=== PATIENT | male | born 1935 | race Caucasian/White ===

== ENCOUNTER 2021-04-02 17:54 | Inpatient (IN) ==
--- NOTE | 2021-04-02 21:05 | History & Physical Report ---
Date of Service April 02, 2021 Assessment & Plan (1) Lower extremity weakness: Patient is coming in with lower extremity weakness and L2 lumbar compression fracture. will consult ortho will likely order MRI of lumbar spine. will hold pain medicine will consult PT/OT (2) HTN (hypertension): will monitor, may add home med (3) Compression fracture of L2: as noted above. Admission and Anticipated Discharge Date Admission Date: April 02, 2021 History of Present Illness Chief Complaint: lower extremity weakness Primary Care Provider: Santhosh Chiang DO 85 yo male is brought from the [place] [facility] as it apperars he had a fall within the past 2 weeks. Prior to today, he would take care of his , and was the active spouse out of the 2. However, today, he just could not get out of bed. And he was unable to lift his bilateral lower extremities. He was also complaining of back pain. He was brought to the er in [place] and due to laxck of beds, was transferred to [facility]. Called for input. PMH: Cataract; HTN, Prostate Carcinoma PSH: Inguinal hernia repair in 2019 PFH: noncontributory given his advanced age. Medications: Losartan 50 mg PO DAILY Allergies Allergy/AdvReac Type Severity Reaction Status Date / Time No Known Allergies Allergy Unverified 04/02/21 21:39 Past Med/Surg History Social History Smoking Status: Former smoker Second Hand Exposure: No; Hx Alcohol Use: No Hx Substance Use: No Preferred Language: Ghanaian Communication Ability: Effective Beliefs That Will Affect Care: None Current Living Situation: Spouse Other Information That Helps Us Care for You: No Feels Safe at Home: Yes Safety Concerns: Feels Safe At This Time Assistive Devices: Denture - Upper, Denture - Lower and Walker Review of Systems Review of Systems: Unobtainable due to cognitive status Physical Exam Constitutional: WD/WN, vitals as above Eyes: PERRL, conjunctivae normal, anicteric sclerae ENMT: external ear and nose normal, oropharynx normal Neck: trachea midline, no thyromegaly Respiratory: normal respiratory effort, lungs clear to auscultation Cardiovascular: RRR, no murmur, no edema Gastrointestinal (Abdomen): normal bowel sounds, soft, nontender, no hepatosplenomegaly Musculoskeletal: no cyanosis or clubbing, extremities motor strength 5/5 (except for 3/5 strength in bilateral lower legs) Neurologic: PERRL, EOMI, accommodation nl, no face palsy, no dysarthria Psychiatric: A+Ox3, euthymic affect Results & Data Results & Data ([facility]) Vital Signs (Past 12 Hours) Vital Signs Temp Pulse Resp BP Pulse Ox 04/02/21 20:18 36.9 C 68 20 154/75 H 92 PG Care Time/CCT Total # of Minutes Spent Total Time Spent with Patient: Total time spent is greater than 50% in coordination of care (as documented) at patient's floor/unit and/or counseling patient: Coding Level of Care Code 00054 Initial Inpt Care Lvl 3 Diagnoses Lower extremity weakness R29.898 HTN (hypertension) I10 Compression fracture of L2 S32.020A Time Spent (min) 55
[2021-04-02] MEDS ORDERED: PATIENT'S ALLERGY INFO NEEDS ENTERED SCH (21:45)
[2021-04-02 22:49] LABS: Hematocrit (blood only) 38.3 % (42-52); Hemoglobin 12.7 g/dL (14.0-18.0); Mean Corpuscular Hemoglobin 31.5 pg (25-34); Mean Corpuscular Hgb Conc 33.2 g/dL (32-36); Mean Platelet Volume 10.1 fL (7.4-10.4); Platelet Count 149 K/uL (130-400); RDW Coefficient of Variation 13.7 % (11.5-14.5); RDW Standard Deviation 47.9 fL (36.4-46.3); Red Blood Count 4.03 M/uL (4.7-6.1); White Blood Count 4.68 K/uL (4.8-10.8)
[2021-04-03] MEDS: HEPARIN SOD 5,000 UNIT/0.5 ML VIAL SQ SCH ×4 (01:47→23:27)
--- NOTE | 2021-04-03 08:18 | Orthopedic Consultation ---
Date of Consultation April 03, 2021 Assessment & Plan (1) Compression fracture of L2: At this time would like to obtain an MRI lumbar spine. After this complete review of findings make further conditions. History of Present Illness Reason for Consultation: Back pain Attending Physician: Omero Scruggs History of Present Illness This is a 85-year-old male that presents to the hospital status post fall at home. His complaints of back and bilateral leg weakness. Allergies Allergy/AdvReac Type Severity Reaction Status Date / Time No Known Allergies Allergy Unverified 04/02/21 21:39 Home Medications Medication Instructions Recorded Confirmed Type No Known Home Medications 04/03/21 History Patient History Social History Smoking Status: Former smoker Second Hand Exposure: No; Hx Alcohol Use: No Hx Substance Use: No Preferred Language: Cypriot Communication Ability: Effective Beliefs That Will Affect Care: None Current Living Situation: Spouse Other Information That Helps Us Care for You: No Feels Safe at Home: Yes Safety Concerns: Feels Safe At This Time Assistive Devices: Denture - Upper, Denture - Lower and Walker Physical Exam Physical Exam: On physical exam he is resting comfortably. He demonstrates the ability for plantarflexion dorsiflexion quadricep contraction bilateral extremities. Did not get him out of bed. He does have pain when sitting up and rolling over in bed. Sensory appears to be intact. Results & Data ([facility]) Vital Signs (Past 12 Hours) Vital Signs Temp Pulse Resp BP BP Pulse Ox 04/03/21 05:44 179/79 H 04/03/21 05:41 36.5 C 73 16 95 04/02/21 20:18 36.9 C 68 20 154/75 H 92
--- NOTE | 2021-04-03 10:53 | Magnetic Resonance Report ---
LUMBAR SPINE MRI HISTORY: back and leg pain TECHNIQUE: Multiplanar multisequence MRI of the lumbar spine was performed without the use of contras t. COMPARISON: None. FINDINGS: For the purpose of the report the L5-S1 disc space will be located on axial image 30 of 33. There is marrow edema and a fluid cleft within the superior endplate of L2 which demonstrates up to 1 0% loss of height centrally. This is consistent with a subacute superior endplate compression fractur e. No associated retropulsion. No additional fractures identified within the lumbar spine. Mild parav ertebral edema at the L2 level is likely reactive to the fracture. The conus terminates at the L1-L2 disc space level. There is a 1.8 cm T2 hyperintense, T1 hypointense focus within the posterior aspect of the L1 vertebral body. This is indeterminate but could be related to the normal vascular structur es. An atypical hemangioma could also have a similar appearance. Eone-ib-febprdju facet degenerative changes within the lumbar spine most pronounced at the L5-S1 level. Mild edema within the lower teetee daniela musculature. This may represent a mild muscular strain. There is moderate disc space narrowing at L2-L3. The remaining disc spaces are preserved. L1-L2: No significant central canal narrowing. There is mild left-sided neural foraminal narrowing. L2-L3: No significant central canal or neural foraminal narrowing. L3-L4: Small broad-based posterior disc bulge without significant central canal or neural foraminal n arrowing. L4-L5: Small broad-based posterior disc bulge with ligamentum and facet hypertrophy resulting in mini mal central canal narrowing. There is mild right neural foraminal narrowing. L5-S1: No significant central canal or neural foraminal narrowing. IMPRESSION: 1. A mild subacute superior endplate compression fracture at L2. No associated retropulsion. 2. Mild edema within the lower paraspinal muscles consistent with a mild strain. 3. Degenerative changes as described above. ACT 112: Negative or not required by law. Electronically signed by: Benny Green M.D. 04/03/2021 10:51 AM
[2021-04-03] MEDS: LOSARTAN POTASSIUM 50 MG TAB PO SCH (15:42)
--- NOTE | 2021-04-03 21:51 | Hospitalist Progress Note ---
Date of Service April 03, 2021 Assessment & Plan (1) Lower extremity weakness: Plan: Patient is coming in with lower extremity weakness and L2 lumbar compression fracture. await further input from ortho Obtained MRI of L spine will order lidocaine patch will consult PT/OT (2) HTN (hypertension): will resume losartan. will monitor. BP is elevated. (3) Compression fracture of L2: as noted above. (2) HTN (hypertension): (3) Compression fracture of L2: Admission and Anticipated Discharge Date Admission Date: April 02, 2021 Subjective Patient reports back pain when he tries to ambulate. Review of Systems Review of Systems: All systems reviewed & are unremarkable except as noted in HPI & below Physical Exam Constitutional: WD/WN, vitals as above Eyes: PERRL, conjunctivae normal, anicteric sclerae ENMT: external ear and nose normal, oropharynx normal Neck: trachea midline, no thyromegaly Respiratory: normal respiratory effort, lungs clear to auscultation Cardiovascular: RRR, no murmur, no edema Gastrointestinal (Abdomen): normal bowel sounds, soft, nontender, no hepatosplenomegaly Musculoskeletal: no cyanosis or clubbing, extremities motor strength 5/5 (exce pt for 3/5 strength in bilateral lower legs) Neurologic: PERRL, EOMI, accommodation nl, no face palsy, no dysarthria Psychiatric: A+Ox3, euthymic affect PG Care Time/CCT Total # of Minutes Spent Total Time Spent with Patient: Total time spent is greater than 50% in coordination of care (as documented) at patient's floor/unit and/or counseling patient: Coding Level of Care Code 96306 Subseq Hosp Care Lvl 3 Diagnoses Lower extremity weakness R29.898 HTN (hypertension) I10 Compression fracture of L2 S32.020A
--- NOTE | 2021-04-04 08:00 | Orthopedic Progress Note ---
Date of Service April 04, 2021 Assessment & Plan (1) Compression fracture of L2: Plan: MRI obtained yesterday does demonstrate acute L2 compression fracture. I do not appreciate any significant neural compression or spinal stenosis. He seems to be responding with rest medications and reasonable start physical therapy with his LSO brace. I think we can avoid surgical intervention at this time. Admission and Anticipated Discharge Date Admission Date: April 02, 2021 Subjective Patient states his back pain is controlled and he was able to get out of bed yesterday. Physical Exam Physical Exam: She was sleeping when I entered the room. We will awaken without difficulty. He demonstrates good strength testing lower extremities. Appears to be comfortable. Results & Data ([facility]) Vital Signs (Past 12 Hours) Vital Signs Temp Pulse Resp BP Pulse Ox 04/04/21 07:19 36.7 C 68 16 153/78 H 92 04/03/21 22:52 37.1 C 72 18 170/74 H 93
[2021-04-04] MEDS: LOSARTAN POTASSIUM 50 MG TAB PO SCH (08:39)
[2021-04-04] MEDS: HEPARIN SOD 5,000 UNIT/0.5 ML VIAL SQ SCH ×3 (08:40→23:13)
[2021-04-04] MEDS: LIDOCAINE 5% 1 PATCH TD SCH (08:41)
--- NOTE | 2021-04-04 09:54 | Hospitalist Progress Note ---
Date of Service April 04, 2021 Assessment & Plan (1) Lower extremity weakness: Plan: Patient is coming in with lower extremity weakness and L2 lumbar compression fracture. appreciate input from ortho: conservative management at this time. Obtained MRI of L spine: confirmed compressin fracture. will hold off narcotics due to possiblity of causing delirium. ordered lidocaine patch will consult PT/OT awaiting placement of LSO brace. (2) HTN (hypertension): Plan: will resume losartan. will monitor. BP at goal. (3) Compression fracture of L2: Plan: as noted above. Admission and Anticipated Discharge Date Admission Date: April 02, 2021 Subjective 85 YO male reports his pain is better controlled today. updated daughters at bedside. Review of Systems Review of Systems: All systems reviewed & are unremarkable except as noted in HPI & below Physical Exam Constitutional: WD/WN, vitals as above Eyes: PERRL, conjunctivae normal, anicteric sclerae ENMT: external ear and nose normal, oropharynx normal Neck: trachea midline, no thyromegaly Respiratory: normal respiratory effort, lungs clear to auscultation Cardiovascular: RRR, no murmur, no edema Gastrointestinal (Abdomen): normal bowel sounds, soft, nontender, no hepatosplenomegaly Musculoskeletal: no cyanosis or clubbing, extremities motor strength 5/5 (except for 3/5 strength in bilateral lower legs) Neurologic: PERRL, EOMI, accommodation nl, no face palsy, no dysarthria Psychiatric: A+Ox3, euthymic affect Results & Data Results & Data ([facility]) Vital Signs (Past 12 Hours) Vital Signs Temp Pulse Resp BP Pulse Ox 04/04/21 07:19 36.7 C 68 16 153/78 H 92 04/03/21 22:52 37.1 C 72 18 170/74 H 93 PG Care Time/CCT Total # of Minutes Spent Total Time Spent with Patient: Total time spent is greater than 50% in coordination of care (as documented) at patient's floor/unit and/or counseling patient: Coding Level of Care Code 82565 Subseq Hosp Care Lvl 3 Diagnoses Lower extremity weakness R29.898 HTN (hypertension) I10 Compression fracture of L2 S32.020A Time Spent (min) 35 Comment updated family
[2021-04-05] MEDS: LOSARTAN POTASSIUM 50 MG TAB PO SCH (08:28)
[2021-04-05] MEDS: LIDOCAINE 5% 1 PATCH TD SCH (08:29)
[2021-04-05] MEDS: HEPARIN SOD 5,000 UNIT/0.5 ML VIAL SQ SCH ×3 (08:30→23:12)
[2021-04-05 09:17] LABS: Hematocrit (blood only) 40.9 % (42-52); Hemoglobin 13.5 g/dL (14.0-18.0); Mean Corpuscular Hemoglobin 31.3 pg (25-34); Mean Corpuscular Volume 94.7 fL (80-100); Mean Platelet Volume 10.5 fL (7.4-10.4); Platelet Count 165 K/uL (130-400); RDW Coefficient of Variation 13.4 % (11.5-14.5); RDW Standard Deviation 46.8 fL (36.4-46.3); Red Blood Count 4.32 M/uL (4.7-6.1)
--- NOTE | 2021-04-05 11:32 | Consultation ---
Date of Consultation April 05, 2021 Assessment & Plan (1) Iliac artery aneurysm, right: This patient was found of a large right common iliac artery aneurysm. This was seen on a plain CAT scan with 5 mm cuts.We will order a CT angiogram of his abdomen pelvis to get better delineation of the aneurysm.We do recommend that we repair this aneurysm most likely with endovascular techniques. Timing of the repair will be based on his recovery from his compression fracture. We will get the CT angiogram during his hospital stay. His repair will be planned at a future date. We will see him as an outpatient once he is discharged. Thank you very much for letting us participate in the care of this patient. History of Present Illness Reason for Consultation: Right common iliac artery aneurysm Attending Physician: Omero Scruggs History of Present Illness This is an 85-year-old gentleman who was admitted from another hospital with compression fracture of his L2 vertebra.This happened within the last couple weeks.On his work-up he had a plain CT scan which showed a large right common iliac artery aneurysm.He did not know anything about this in the past.His claims that she did know that he had an aneurysm.He has no complaints of claudication or cerebrovascular insufficiency at this point. He ambulates through the house without difficulty. Allergies Allergy/AdvReac Type Severity Reaction Status Date / Time No Known Allergies Allergy Unverified 04/02/21 21:39 Home Medications Medication Instructions Recorded Confirmed Type No Known Home Medications 04/03/21 History Patient History Social History Smoking Status: Former smoker Second Hand Exposure: No; Hx Alcohol Use: No Hx Substance Use: No Preferred Language: Faroese Communication Ability: Effective Beliefs That Will Affect Care: None marital status: Current Living Situation: Spouse Other Information That Helps Us Care for You: No Feels Safe at Home: Yes Safety Concerns: Feels Safe At This Time Assistive Devices: Denture - Upper, Denture - Lower and Walker Review of Systems Review of Systems: All systems reviewed & are unremarkable except as noted in HPI & below Physical Exam Constitutional: + underweight; no acute distress Neck: trachea midline Respiratory: normal respiratory effort, lungs clear to auscultation Cardiovascular: Rate/Rhythm: regular rate and regular rhythm Vessels: femoral pulses present and radial pulses present; no carotid bruit Extremities: normal capillary refill; no edema Gastrointestinal (Abdomen): Inspection/Auscultation: abdomen normal to inspection; abdomen not distended Percussion/Palpation: abdomen soft; abdomen nontender Musculoskeletal: no cyanosis or clubbing, extremities motor strength 5/5 Skin: no rashes, warm and dry Neurologic: CN's II-XI intact bilaterally and moves all extremities Psychiatric: Orientation: alert, oriented to person and oriented to place; + not oriented to time (He gives an age of 68 rather than 85.) Lymphatic: He does have slowness in his speech. Results & Data ([facility]) Vital Signs (Past 12 Hours) Vital Signs Temp Pulse Resp BP Pulse Ox 04/05/21 07:38 36.6 C 67 16 160/75 H 95
[2021-04-05] MEDS ORDERED: OPTIRAY 320 125ml IV ONE (15:57)
--- NOTE | 2021-04-05 16:23 | CT Scan Report ---
CT angio abd pelvis wo/w con CLINICAL HISTORY: Right iliac aneurysm. COMPARISON STUDY: CT of the abdomen and pelvis April 02, 2021. TECHNIQUE: Unenhanced and arterial phase imaging of the abdomen and pelvis was performed. Intravenous injection of 116 cc Optiray 320 IV was uneventful. Sagittal coronal reconstructed reviewed as well a s maximal intensity projections on an independent 3-D workstation. Automated exposure control was uti lized for the study. A dose lowering technique was utilized adhering to the principles of ALARA. FINDINGS: Note is made of mild dilatation of the aortic root, suboptimally assessed on this exam. Thi s measures approximately 4.5 cm. There is extensive plaque of the abdominal aorta. Infrarenal abdomin al aorta is ectatic, measuring 2.9 cm. Note is made of a aneurysm of the right common iliac artery wh ich measures 3.6 cm in AP dimension. The aneurysm extends for 4.3 cm in length. This contains extensi ve eccentric mural thrombus which is hyperdense. Aneurysm is partially thrombosed. There is mild dila tation of the left common iliac artery, measuring 1.6 cm. The bilateral external iliac and common fem oral arteries are patent. No evidence for rupture. Celiac axis, superior mesenteric artery, bilateral renal arteries and inferior mesenteric artery are patent. Arterial phase images of liver, spleen, adrenal glands and pancreas are unremarkable. There is no marcus iary or pancreatic ductal dilatation. There is evidence for a left inguinal hernia repair with mesh. Colonic diverticulosis is noted without evidence for acute diverticulitis. The appendix is normal. L2 compression fracture is noted. This was shown on MRI of April 03, 2021. IMPRESSION: 1. 3.6 cm right common iliac artery aneurysm which contains eccentric mural thrombus. No rupture. 2. Mild dilatation of the left common iliac artery, measuring 1.6 cm. 3. Ectatic infrarenal abdominal aorta. Extensive atherosclerotic plaque. Patent bilateral external il iac and common femoral arteries. 4. L2 compression fracture, as shown on MRI of April 03, 2021. ACT 112: Negative or not required by law. Electronically signed by: Donovan Manzo M.D. 04/05/2021 4:21 PM
--- NOTE | 2021-04-05 20:37 | Hospitalist Progress Note ---
Date of Service April 05, 2021 Assessment & Plan (1) Lower extremity weakness: Plan: Patient is coming in with lower extremity weakness and L2 lumbar compression fracture. appreciate input from ortho: conservative management at this time. Obtained MRI of L spine: confirmed compressin fracture. will hold off narcotics due to possiblity of causing delirium. ordered lidocaine patch will consult PT/OT Now has LSO brace. awaiting placement. (2) HTN (hypertension): Plan: continue losartan. will monitor. BP at goal. (3) Compression fracture of L2: Plan: as noted above. Admission and Anticipated Discharge Date Admission Date: April 02, 2021 Subjective Patient reports feeling well. Review of Systems Review of Systems: All systems reviewed & are unremarkable except as noted in HPI & below Physical Exam Constitutional: WD/WN, vitals as above Eyes: PERRL, conjunctivae normal, anicteric sclerae ENMT: external ear and nose normal, oropharynx normal Neck: trachea midline, no thyromegaly Respiratory: normal respiratory effort, lungs clear to auscultation Cardiovascular: RRR, no murmur, no edema Gastrointestinal (Abdomen): normal bowel sounds, soft, nontender, no hepatosplenomegaly Musculoskeletal: no cyanosis or clubbing, extremities motor strength 5/5 (except for 3/5 strength in bilateral lower legs) Neurologic: PERRL, EOMI, accommodation nl, no face palsy, no dysarthria Psychiatric: A+Ox3, euthymic affect Results & Data Results & Data ([facility]) Vital Signs (Past 12 Hours) Vital Signs Temp Pulse Resp BP Pulse Ox 04/05/21 15:24 36.7 C 80 20 100/64 96 PG Care Time/CCT Total # of Minutes Spent Total Time Spent with Patient: Total time spent is greater than 50% in coordination of care (as documented) at patient's floor/unit and/or counseling patient: Coding Level of Care Code 11830 Subseq Hosp Care Lvl 2 Diagnoses Lower extremity weakness R29.898 HTN (hypertension) I10 Compression fracture of L2 S32.020A Time Spent (min) 25 Comment updated family
[2021-04-06] MEDS: LIDOCAINE 5% 1 PATCH TD SCH (08:31)
[2021-04-06] MEDS: LOSARTAN POTASSIUM 50 MG TAB PO SCH (08:31)
[2021-04-06] MEDS: HEPARIN SOD 5,000 UNIT/0.5 ML VIAL SQ SCH ×3 (08:32→23:55)
--- NOTE | 2021-04-06 22:12 | Hospitalist Progress Note ---
Date of Service April 06, 2021 Assessment & Plan (1) Lower extremity weakness: Plan: Patient is coming in with lower extremity weakness and L2 lumbar compression fracture. appreciate input from ortho: conservative management at this time. Obtained MRI of L spine: confirmed compressin fracture. will hold off narcotics due to possiblity of causing delirium. ordered lidocaine patch will consult PT/OT: patient is now able to move from bed to chair with assistance. will benefit from rehab. Now has LSO brace. awaiting placement. (2) HTN (hypertension): Plan: continue losartan. will monitor. BP at goal. (3) Compression fracture of L2: Plan: as noted above. Admission and Anticipated Discharge Date Admission Date: April 02, 2021 Subjective Patient reports no new symptoms today. Review of Systems Review of Systems: All systems reviewed & are unremarkable except as noted in HPI & below Physical Exam Constitutional: WD/WN, vitals as above Eyes: PERRL, conjunctivae normal, anicteric sclerae ENMT: external ear and nose normal, oropharynx normal Neck: trachea midline, no thyromegaly Respiratory: normal respiratory effort, lungs clear to auscultation Cardiovascular: RRR, no murmur, no edema Gastrointestinal (Abdomen): normal bowel sounds, soft, nontender, no hepato splenomegaly Musculoskeletal: no cyanosis or clubbing, extremities motor strength 5/5 (except for 3/5 strength in bilateral lower legs) Neurologic: PERRL, EOMI, accommodation nl, no face palsy, no dysarthria Psychiatric: Orientation: alert and oriented to person; + not oriented to plac e and + not oriented to time Results & Data Results & Data ([facility]) Vital Signs (Past 12 Hours) Vital Signs Temp Pulse Resp BP Pulse Ox 04/06/21 14:41 36.6 C 83 16 110/71 92 PG Care Time/CCT Total # of Minutes Spent Total Time Spent with Patient: Total time spent is greater than 50% in coordination of care (as documented) at patient's floor/unit and/or counseling patient: Coding Level of Care Code 63471 Subseq Hosp Care Lvl 2 Diagnoses Lower extremity weakness R29.898 HTN (hypertension) I10 Compression fracture of L2 S32.020A Time Spent (min) 25
[2021-04-07] MEDS: LIDOCAINE 5% 1 PATCH TD SCH (08:20)
[2021-04-07] MEDS: LOSARTAN POTASSIUM 50 MG TAB PO SCH (08:20)
[2021-04-07] MEDS: HEPARIN SOD 5,000 UNIT/0.5 ML VIAL SQ SCH ×3 (08:21→23:24)
--- NOTE | 2021-04-07 11:04 | Hospitalist Progress Note ---
Date of Service April 07, 2021 Assessment & Plan (1) Lower extremity weakness: Plan: Patient is coming in with lower extremity weakness and L2 lumbar compression fracture. appreciate input from ortho: conservative management at this time. Obtained MRI of L spine: confirmed compressin fracture. will hold off narcotics due to possiblity of causing delirium. ordered lidocaine patch will consult PT/OT: patient is now able to move from bed to chair with assistance. will benefit from rehab. Now has LSO brace. awaiting placement. (2) HTN (hypertension): Plan: continue losartan. will monitor. BP at goal. (3) Compression fracture of L2: Plan: as noted above. (4) Acute urinary retention: Plan: Patient required a straight cath today and urine appeared concentrated. Ordered IV fluid and will monitor urine output, wit plan to repeat straight cath at over 350 ml on bladder scan. will recheck BMP in AM. Admission and Anticipated Discharge Date Admission Date: April 02, 2021 Subjective Patient reports no new symptoms today. Pain appears controlled. Nurse reports: his urine appears more concentrated, he has not been able to void on is own. Review of Systems Review of Systems: All systems reviewed & are unremarkable except as noted in HPI & below Physical Exam Constitutional: WD/WN, vitals as above Eyes: PERRL, conjunctivae normal, anicteric sclerae ENMT: external ear and nose normal, oropharynx normal Neck: trachea midline, no thyromegaly Respiratory: normal respiratory effort, lungs clear to auscultation Cardiovascular: RRR, no murmur, no edema Gastrointestinal (Abdomen): normal bowel sounds, soft, nontender, no hepatosplenomegaly Musculoskeletal: no cyanosis or clubbing, extremities motor strength 5/5 (except for 3/5 strength in bilateral lower legs) Neurologic: PERRL, EOMI, accommodation nl, no face palsy, no dysarthria Psychiatric: Orientation: alert and oriented to person; + not oriented to place and + not oriented to time Results & Data Results & Data ([facility]) Vital Signs (Past 12 Hours) Vital Signs Temp Pulse Resp BP BP Pulse Ox 04/07/21 07:33 36.8 C 83 18 138/76 92 04/06/21 23:17 36.7 C 77 18 124/73 94 PG Care Time/CCT Total # of Minutes Spent Total Time Spent with Patient: Total time spent is greater than 50% in coordination of care (as documented) at patient's floor/unit and/or counseling patient: Coding Level of Care Code 85455 Subseq Hosp Care Lvl 2 Diagnoses Lower extremity weakness R29.898 HTN (hypertension) I10 Compression fracture of L2 S32.020A Acute urinary retention R33.8 Time Spent (min) 25
[2021-04-07 11:42] LABS: Albumin Level 3.2 gm/dl (3.4-5.0); BUN Creatinine Ratio 19.7 (10-20); Bilirubin Direct 0.2 mg/dl (0-0.2); Calcium 8.8 mg/dl (8.5-10.1); Creatinine Clr Calc Pharmacy 73.3 ml/min; Est GFR (African American) 95.4 ml/min; Est GFR (Non-African American) 82.3 ml/min; Potassium 3.6 mmol/L (3.5-5.1)
[2021-04-07 11:45] LABS: Bilirubin,Total 0.7 mg/dl (0.2-1)
[2021-04-07] MEDS: LACTATED RINGER'S 1,000 ML IV SCH ×2 (11:54→23:23)
[2021-04-08 06:03] LABS: Hematocrit (blood only) 36.4 % (42-52); Hemoglobin 12.4 g/dL (14.0-18.0); Mean Corpuscular Hgb Conc 34.1 g/dL (32-36); Mean Corpuscular Volume 94.1 fL (80-100); Mean Platelet Volume 9.9 fL (7.4-10.4); Platelet Count 157 K/uL (130-400); RDW Coefficient of Variation 13.5 % (11.5-14.5); RDW Standard Deviation 46.3 fL (36.4-46.3); Red Blood Count 3.87 M/uL (4.7-6.1); White Blood Count 4.08 K/uL (4.8-10.8)
[2021-04-08 06:32] LABS: BUN Creatinine Ratio 17.6 (10-20); Calcium 8.3 mg/dl (8.5-10.1); Est GFR (African American) 100.9 ml/min; Est GFR (Non-African American) 87.1 ml/min; Potassium 3.3 mmol/L (3.5-5.1)
[2021-04-08] MEDS: LOSARTAN POTASSIUM 50 MG TAB PO SCH (08:38)
[2021-04-08] MEDS: HEPARIN SOD 5,000 UNIT/0.5 ML VIAL SQ SCH ×2 (08:38→16:30)
[2021-04-08] MEDS: LIDOCAINE 5% 1 PATCH TD SCH (08:38)
--- NOTE | 2021-04-08 09:55 | Communication Note ---
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 Will see pt in office in 4 weeks to discuss elective repair of his iliac aneurysm. Angie ralph will call to schedule. Please call if needed.
[2021-04-08] MEDS ORDERED: POTASSIUM CHLORIDE CRTAB 20 MEQ TABCR PO STA (17:13)
--- NOTE | 2021-04-08 17:14 | Hospitalist Progress Note ---
Date of Service April 08, 2021 Assessment & Plan (1) Lower extremity weakness: Plan: * Patient is coming in with lower extremity weakness and L2 lumbar compression fracture. * appreciate input from ortho: conservative management at this time. * pain controlled with lidoderm patch * awaiting placement * PT/OT on board * continue LSO brace (2) Compression fracture of L2: Plan: as noted above. (3) AMS (altered mental status): Plan: * suspect dementia with hospital acquired delirium. * family at bedside and reports that this isn't far from [place] * will obtain UA with culture to ensure no infection (as patient with retention upfront) (4) Hypokalemia: Plan: * replace (5) HTN (hypertension): Plan: * continue losartan. Plan: -awaiting placement -plan of care to be D/W Dr. Newsome. Further orders as warrented. Admission and Anticipated Discharge Date Admission Date: April 02, 2021 Subjective Mr. Phan is an 85-year-old white male with a past medical history of HTN and prostate CA. Resides in a two-story home with his and typically ambulates with a cane. He presented to the ED on 04/02 2 weeks following a ground-level fall. Patient is pleasantly confused and unable to provide any form of history. He apparently had a fall 2 weeks [employer] but developed a sudden loss of weakness in his lower extremities with the inability to walk on the day of presentation. He went to the [facility] emergency room but was transferred to our facility due to lack of beds. Patient was admitted for pain management. An MRI was done showing a mild subacute superior endplate compression fracture at L2 without retropulsion. Mild edema within the paraspinal muscles consistent with strain. He is on a Lidoderm patch and currently reports no pain. Ortho has been involved and agreed with conservative management. Patient has an LSO brace in place. Inadvertently, patient had imaging showing concern for common iliac artery aneurysm. CTA of the abdomen and pelvis was performed showing a 3.6 right common iliac artery containing mural thrombus. Vascular surgery has evaluated the patient. Recommending outpatient follow-up with continued aspirin 81 mg daily. PT/OT on board. Recommending inpatient rehabilitation. Case management on board to facilitate placement. Awaiting authorization. Patient currently denies fevers, chills, chest pain, shortness of breath, abdominal pain, nausea or vomiting, GI/ symptomatology. Question reliability. Review of Systems Review of Systems: All systems reviewed and are unremarkable except as noted in HPI and below Denies fevers, chills, headache, nasal congestion, sore throat, cough, chest pain, shortness of breath, abdominal pain, nausea, vomiting, dysuria, hematuria, frequency, skin lesions or rashes. Physical Exam Physical Exam: General: talkative. somewhat nonsensical/pleasantly confused. Resting comfortably in his bedside chair. NAD. Neck: No JVD. Negative hepatojugular reflex Cardiac: RRR with 1-2/6 JOSÉ MIGUEL Lungs: CTA without W/R/R Abdomen: Normoactive X4. Soft and nontender in all quadrants. Extremities: LSO brace in place. No peripheral clubbing cyanosis or edema Neuro:Patient is awake. He is oriented to self. No oriented to place/time. Somewhat oriented to situation. Cranial nerves II through XII are grossly intact no focal neuro deficits Skin: No obvious skin lesions or rashes Results & Data Results & Data ([facility]) Vital Signs (Past 12 Hours) Vital Signs Temp Pulse Resp BP BP Pulse Ox 04/08/21 15:09 37.0 C 76 18 117/69 94 04/08/21 06:38 36.4 C L 65 16 163/75 H 94 Laboratory Results 04/08/21 05:46 04/08/21 05:46 PG Care Time/CCT Total # of Minutes Spent Total Time Spent with Patient: Total time spent is greater than 50% in coordination of care (as documented) at patient's floor/unit and/or counseling patient: Coding [place] [address] Subseq Hosp Care Lvl 1 Patient Type Established History Problem Focused Exam Problem Focused Medical Decision Making Straight Forward Diagnoses Lower extremity weakness R29.898 HTN (hypertension) I10 Compression fracture of L2 S32.020A Hypokalemia E87.6 AMS (altered mental status) R41.82
[2021-04-09] MEDS: HEPARIN SOD 5,000 UNIT/0.5 ML VIAL SQ SCH ×2 (00:33→09:03)
[2021-04-09 07:37] VITALS: BP 118/71; TEMP 98.1; O2SAT 97
[2021-04-09 08:02] LABS: Appearance Urine Clear (Clear); Bilirubin Urine Negative (Negative); Blood Urine Negative (Negative); Color Urine Dark Yellow; Glucose Urine UA Negative (Negative); Ketones Urine Negative (Negative); Leukocyte Esterase Urine Negative (Negative); Nitrite Urine Negative (Negative); Protein Urine Negative (Negative); Specific Gravity Urine 1.015 (1.000-1.030); Urobilinogen Urine Positive (Negative)
[2021-04-09] MEDS ORDERED: ASPIRIN 81 MG ECTAB PO SCH (09:00)
[2021-04-09] MEDS: LIDOCAINE 5% 1 PATCH TD SCH (09:03)
[2021-04-09] MEDS: LOSARTAN POTASSIUM 50 MG TAB PO SCH (09:03)
[2021-04-09 13:47] VITALS: PULSE 76
--- NOTE | 2021-04-09 16:59 | Discharge Summary ---
Date of Service April 09, 2021 Admission HPI Per Admitting Provider 85 yo male is brought from the [place] ER as it apperars he had a fall within the past 2 weeks. Prior to today, he would take care of his , and was the active spouse out of the 2. However, today, he just could not get out of bed. And he was unable to lift his bilateral lower extremities. He was also complaining of back pain. He was brought to the er in [place] and due to laxck of beds, was transferred to [facility]. Called for input. PMH: Cataract; HTN, Prostate Carcinoma PSH: Inguinal hernia repair in 2019 PFH: noncontributory given his advanced age. Medications: Losartan 50 mg PO DAILY Admission Exam Per Admitting Provider Constitutional: WD/WN, vitals as above Eyes: PERRL, conjunctivae normal, anicteric sclerae ENMT: external ear and nose normal, oropharynx normal Neck: trachea midline, no thyromegaly Respiratory: normal respiratory effort, lungs clear to auscultation Cardiovascular: RRR, no murmur, no edema Gastrointestinal (Abdomen): normal bowel sounds, soft, nontender, no hepatosplenomegaly Musculoskeletal: no cyanosis or clubbing, extremities motor strength 5/5 (except for 3/5 strength in bilateral lower legs) Neurologic: PERRL, EOMI, accommodation nl, no face palsy, no dysarthria Psychiatric: A+Ox3, euthymic affect Principal Diagnosis Working diagnoses: 1. Compression fracture of L2pain controlled 3. Lower extremity weakness 3. Altered mental statussuspect hospital-acquired delirium with underlying dementia 4. Hypokalemiareplaced and resolved 5. 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 HTN Discharge Exam General: talkative. somewhat nonsensical/pleasantly confused. Resting comfortably in his bedside chair. NAD. Neck: No JVD. Negative hepatojugular reflex Cardiac: RRR with 1-2/6 JOSÉ MIGUEL Lungs: CTA without W/R/R Abdomen: Normoactive X4. Soft and nontender in all quadrants. Extremities: LSO brace in place. No peripheral clubbing cyanosis or edema Neuro:Patient is awake. He is oriented to self. No oriented to place/time. Somewhat oriented to situation. Cranial nerves II through XII are grossly intact no focal neuro deficits Skin: No obvious skin lesions or rashes Discharge Data Allergies Allergy/AdvReac Type Severity Reaction Status Date / Time No Known Allergies Allergy Unverified 04/02/21 21:39 Consultations 04/03/21 00:29 Consult Orthopedic Surgery Routine (1) Compression fracture of L2: Plan: MRI obtained yesterday does demonstrate acute L2 compression fracture. I do not appreciate any significant neural compression or spinal stenosis. He seems to be responding with rest medications and reasonable start physical therapy with his LSO brace. I think we can avoid surgical intervention at this time. 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 Will see pt in office in 4 weeks to discuss elective repair of his iliac aneurysm. Office will call to schedule. Please call if needed. -->I did discuss CTA report with Mena Lizama regarding the mural thrombus seen in the aneurysm. I question if patient needed anticoagulation therapy or even low-dose Xarelto (2.5 mg). She recommended aspirin 81 mg daily and will follow up with patient in the office Ordered Studies CT of the lumbar spine performed at [facility] Reviewed 1. Superior endplate fracture of L2 vertebral body new since 05/2020 2. Segment wall thickening with surrounding inflammation and small fluid within the distal descending colon likely related to mild colitis versus diverticulitis. Underlying colonic neoplasm is not excluded. Follow-up colonoscopy versus CT recommended. 3. 4 cm right common iliac artery aneurysm increased in size with mildly aneurysmal infrarenal abdominal aorta unchanged 04/03/21 08:18 MR lumbar spine wo con Routine FINDINGS: For the purpose of the report the L5-S1 disc space will be located on axial image 30 of 33. There is marrow edema and a fluid cleft within the superior endplate of L2 which demonstrates up to 10% loss of height centrally. This is consistent with a subacute superior endplate compression fracture. No associated retropulsion. No additional fractures identified within the lumbar spine. Mild paravertebral edema at the L2 level is likely reactive to the fracture. The conus terminates at the L1-L2 disc space level. There is a 1.8 cm T2 hyperintense, T1 hypointense focus within the posterior aspect of the L1 vertebral body. This is indeterminate but could be related to the normal vascular structures. An atypical hemangioma could also have a similar appearance. [id number] facet degenerative changes within the lumbar spine most pronounced at the L5-S1 level. Mild edema within the lower paraspinal musculature. This may represent a mild muscular strain. There is moderate disc space narrowing at L2-L3. The remaining disc spaces are preserved. L1-L2: No significant central canal narrowing. There is mild left-sided neural foraminal narrowing. L2-L3: No significant central canal or neural foraminal narrowing. L3-L4: Small broad-based posterior disc bulge without significant central canal or neural foraminal narrowing. L4-L5: Small broad-based posterior disc bulge with ligamentum and facet hypertrophy resulting in minimal central canal narrowing. There is mild right neural foraminal narrowing. L5-S1: No significant central canal or neural foraminal narrowing. IMPRESSION: 1. A mild subacute superior endplate compression fracture at L2. No associated retropulsion. 2. Mild edema within the lower paraspinal muscles consistent with a mild strain. 3. Degenerative changes as described above. 04/05/21 11:28 CT angio abd pelvis wo/w con Routine IMPRESSION: 1. 3.6 cm right common iliac artery aneurysm which contains eccentric mural thrombus. No rupture. 2. Mild dilatation of the left common iliac artery, measuring 1.6 cm. 3. Ectatic infrarenal abdominal aorta. Extensive atherosclerotic plaque. Patent bilateral external iliac and common femoral arteries. 4. L2 compression fracture, as shown on MRI of April 03, 2021. Hospital Course (1) Lower extremity weakness: * Patient presented to the ED with lower extremity weakness and L2 lumbar compression fracture. * Seen by Orthoappreciate recommendations. Recommended LSO brace with conservative management * pain controlled with lidoderm patch * Plan is for placement to [facility] for continued inpatient rehabilitation (2) Compression fracture of L2: as noted above. (3) AMS (altered mental status): * suspect dementia with hospital acquired delirium. * family at bedside and reports that this isn't far from [place] * Urinalysis obtained and not grossly infected as it was leukocyte esterase and nitrite negative (4) Iliac artery aneurysm, right: * Seen by vascular. They are aware of a mural thrombus seen within the aneurysm. Low-dose aspirin recommended with follow-up care. (5) Hypokalemia: * replaced/resolved (6) HTN (hypertension): * continue losartan. Disposition: Discharged to [facility] for continued inpatient rehabilitation Discharge after seen and agreed upon by Dr. Newsome Will need follow-up with Ortho: 2 weeks Will need follow-up with vascular surgeon: 4 weeks Total Time Total Time Spent Total Time Spent (In Minutes): 35 min Discharge Plan Discharge Items Patient Disposition[facility] Reason For Visit: COMPRESSION FRACTURE Discharge Diagnosis: 1. Generalized Debility and Lower Extremity Weakness 2. Remote L2 Compression Fracture 3. Right Iliac Artery Thrombosis- Need FU with Vascular Activity: As commented below Activity Comment: with LSO brace until specified by Ortho Non-emergency contact: Primary Care Provider Call non-emergency contact if: you have any medication questions and your symptoms worsen Follow-up/Referrals: Junior Ayala DO [Surgeon] - Santhosh Chiang DO [Primary Care Provider] - Derick Davies MD [Physician] - 05/14/21 3:00 pm Diet: Heart Healthy Addtl Attending Provider Instructions: - Take all medications as outlined --Lidoderm patch on board for pain (on for 12h/off for 12h) - Follow up with Dr. Ayala (Ortho) regarding Compression Fracture. Patient to remain in LSO brace until specified by Ortho. - follow up with Vascular regarding right Iliac Artery Aneurysm with Mural Thrombus - Follow up with house Physician within 24-48 hours - Return to the ED for new or worsening symptoms Pending Studies at Discharge: No Stand-Alone Forms: My [facility] whistleBox Skilled Items Patient informed of condition?: Yes DNR: No Discharge Level of Care: Skilled Communicable Disease: No Discharge Prognosis: Stable Lines: None Urinary Catheter: No Medications and DC Order Prescriptions: New losartan 50 mg Tablet 50 mg PO QAM Qty: 30 RF: 0 aspirin 81 mg Tablet,Delayed Release (Dr/Ec) 81 mg PO QAM Qty: 30 RF: 0 lidocaine 5 % Adhesive Patch,Medicated 1 patch transdermal QAM Qty: 30 RF: 0 Discharge Orders: Discharge Order (Routine); Ordered 04/09/21 Ordered By: Vanessa Marcus/Other Patient Handouts: Back Fracture (Compression Fracture) Admission Data Admit Date/Time: 04/02/21 21:25 Attending Provider: Corey Newsome Admit Provider: Omero Scruggs Primary Care Provider: Santhosh Chiang Other Providers: Junior Ayala ; [facility] ; Derick Davies ; Is[facility] [place] Other Interventions: Discharge Summary Assessment (RN) Last Done: 04/09/21 13:44 Supervising Physician Co-Signing Physician Notes Patient seen and examined on the day of discharge. I agree with the discharge summary by Vanessa WANG. I have reviewed the chart including labs, imaging and plans for discharge. patient doing well, sitting up in his chair, no pain at this time, eating well, no dyspnea, no fever ready for [facility] today - L2 compression fracture: pain control, wear back brace when upright, rehab at [facility] Coding Level of Care Code Established Pt D/C DAY MANAGEMENT >30 MINS Patient Type Established Diagnoses Lower extremity weakness R29.898 Compression fracture of L2 S32.020A AMS (altered mental status) R41.82 Hypokalemia E87.6 HTN (hypertension) I10 Iliac artery aneurysm, right I72.3 Time Spent (min) 35
== END 2021-04-09 14:09 | DRG 552 ==
LOC: 3E → SUATTDRO 21:25

== ENCOUNTER 2021-06-20 18:27 | Inpatient (IN) ==
[2021-06-20 22:32] LABS: Basophils # (auto) 0.02 K/uL (0-0.2); Basophils % (auto) 0.4 %; Eosinophils # (auto) 0.08 K/uL (0-0.5); Eosinophils % (auto) 1.6 %; Hematocrit (blood only) 41.5 % (42-52); Hemoglobin 14.3 g/dL (14.0-18.0); Lymphocytes # (auto) 1.18 K/uL (1.2-3.4); Lymphocytes % (auto) 23.3 %; Mean Corpuscular Hemoglobin 31.3 pg (25-34); Mean Corpuscular Hgb Conc 34.5 g/dL (32-36); Mean Corpuscular Volume 90.8 fL (80-100); Mean Platelet Volume 9.5 fL (7.4-10.4); Monocytes # (auto) 0.52 K/uL (0.11-0.59); Monocytes % (auto) 10.3 %; Neutrophils # (auto) 3.27 K/uL (1.4-6.5); Neutrophils % (auto) 64.4 %; Platelet Count 194 K/uL (130-400); RDW Coefficient of Variation 14.6 % (11.5-14.5); Red Blood Count 4.57 M/uL (4.7-6.1); White Blood Count 5.07 K/uL (4.8-10.8)
--- NOTE | 2021-06-20 22:41 | Emergency Department Note ---
History of Present Illness General Chief complaint: Back Injury/Pain Stated complaint: LETHARGIC, PAIN IN LEGS Time Seen by Provider: 06/20/21 21:36 Source: patient and family Mode of arrival: ambulatory Limitations: no limitations History of Present Illness This patient comes in after having a generalized pain in the back and legs he has had ongoing issues with this. He had been in a skilled nursing. He is followed by Dr. 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 He has been functionally declining he was post x-ray of surgery yesterday but his 1 daughter pushed it back because she was going to be out of town he has had no bowel movement today has had a fall last week but nothing recently no fever or cough no urinary symptoms. No chest pain or shortness of breath. Home Medications Medication Instructions Recorded Confirmed Type aspirin 81 mg tablet,delayed 81 mg PO QAM #30 tab 04/09/21 06/20/21 Rx release losartan 50 mg tablet 50 mg PO QAM #30 tab 04/09/21 06/20/21 Rx aspirin 325 mg capsule 650 mg PO UD PRN 06/19/21 06/20/21 History camphor-menthol 0.2 %-3.5 % 1 applic TOPICAL DAILY PRN 06/19/21 06/20/21 History topical gel Allergies Allergy/AdvReac Type Severity Reaction Status Date / Time No Known Allergies Allergy Verified 06/20/21 23:23 Past Med/Surg History Medical History Cancer TESTICULAR-TREATED WITH MEDICATION Compression fracture [id number] BRACE Hypertension Short-term memory loss SOB (shortness of breath) on exertion Surgical History History of colonoscopy MULTIPLE History of tonsillectomy Family History Family/Other Family history of diabetes mellitus GRANDDAUGHTER Social History Smoking Status: Former smoker Second Hand Exposure: No; Hx Alcohol Use: No Hx Substance Use: No Preferred Language: Wallisian Communication Ability: Effective Relationship Advisor Required: No Beliefs That Will Affect Care: None marital status: Current Living Situation: Spouse current occupational status: retired Feels Safe at Home: Yes Assistive Devices: Cane, Denture - Upper, Denture - Lower, Glasses and Walker Review of Systems A total of 10 systems reviewed and were otherwise negative Physical Exam Vital Signs Vital Signs - 24 hr 06/20/21 18:56 06/20/21 20:36 06/20/21 20:39 Temperature 36.4 C L Temperature Source Skin Pulse Rate 84 79 Pulse Rate [Apical] Pulse Rate from SpO2 Sensor 73 Pulse Rhythm [Apical] Respiratory Rate 20 18 16 Respiratory Depth Normal Blood Pressure 128/85 157/91 H Blood Pressure [Left Arm] 157/91 H Blood Pressure Mean 99 113 Blood Pressure Mean [Left Arm] 113 Pulse Oximetry 97 94 96 Oxygen Delivery Method Room Air Room Air Sepsis Recent Fever Within 48 Hours No Sepsis New/Unexplained Change in Mental Status No Sepsis Action Taken by Nursing No Action Required 06/20/21 22:20 Temperature Temperature Source Pulse Rate 76 Pulse Rate [Apical] 76 Pulse Rate from SpO2 Sensor Pulse Rhythm [Apical] Regular Respiratory Rate 18 Respiratory Depth Blood Pressure Blood Pressure [Left Arm] 157/91 H Blood Pressure Mean Blood Pressure Mean [Left Arm] 113 Pulse Oximetry 97 Oxygen Delivery Method Room Air Sepsis Recent Fever Within 48 Hours Sepsis New/Unexplained Change in Mental Status Sepsis Action Taken by Nursing General: Well developed well nourished older male who is sleepy but arousable in no acute distress, breathing comfortably on room air. Normal speech HEENT: Normal cephalic atraumatic. Pupils are equal round and reactive to li ght. Extraocular movements are intact. Oropharynx is pink with moist mucous membranes. No swelling of the mouth lips or tongue. Neck: Supple with a midline trachea. No meningeal signs or stiffness, no JVD or bruits. No Stridor. Chest: Clear to auscultation bilaterally. No wheezes or rhonchi. No increased work of breathing. Heart: Regular rate and rhythm without murmurs or gallops. Abdomen: Soft nontender, nondistended without rebound guarding or rigidity. Extremities: No cyanosis clubbing or edema. No calf tenderness or assymetry Spine/Back. Non tender to palpation. No CVA tenderness Skin: Good turgor without rashes. Neurologic exam: Cranial nerves two through 12 are intact. Motor and sensation are intact and symmetrical throughout. Course Administered Medications Discontinued Medications Ioversol (Optiray 320 125ml) 115 ml IV ONCE ONE Stop: 06/21/21 00:14 Last Admin: 06/21/21 00:13 Dose: 115 ml Documented by: [id number] Medical Decision Making Differential Diagnosis Compression fracture, acute exacerbation of chronic pain, aneurysm, infection, anemia, electrolyte or metabolic abnormality, Covid Medical Records Attestation: I reviewed the patient's medical records. Home Medications Current Medication List: was personally reviewed by me Laboratory Data Result diagrams: 06/20/21 22:22 06/20/21 22:22 Lab Results 06/20/21 06/20/21 06/20/21 Range/Units 22:22 22:22 22:22 WBC 5.07 (4.8-10.8) K/uL RBC 4.57 L (4.7-6.1) M/uL Hgb 14.3 (14.0-18.0) g/dL Hct 41.5 L (42-52) % MCV 90.8 (80-100) fL MCH 31.3 (25-34) pg MCHC 34.5 (32-36) g/dL RDW Std Deviation 49.0 H (36.4-46.3) fL RDW Coeff of Ana 14.6 H (11.5-14.5) % Plt Count 194 (130-400) K/uL MPV 9.5 (7.4-10.4) fL Immature Gran % (Auto) 0.0 % Neut % (Auto) 64.4 % Lymph % (Auto) 23.3 % [place] % (Auto) 10.3 % Eos % (Auto) 1.6 % Baso % (Auto) 0.4 % Neut # (Auto) 3.27 (1.4-6.5) K/uL Lymph # (Auto) 1.18 L (1.2-3.4) K/uL [place] # (Auto) 0.52 (0.11-0.59) K/uL Eos # (Auto) 0.08 (0-0.5) K/uL Baso # (Auto) 0.02 (0-0.2) K/uL Immature Gran # (Auto) 0.00 (0.00-0.02) K/uL PT 10.9 (9.0-12.0) Seconds INR 1.1 (0.9-1.1) APTT 32.5 H (21.0-31.0) Seconds PTT Ratio 1.2 Sodium 135 L (136-145) mmol/L Potassium 4.1 (3.5-5.1) mmol/L Chloride 101 (98-107) mmol/L Carbon Dioxide 28 (21-32) mmol/L Anion Gap 6.0 (3-11) BUN 13 (7-18) mg/dl Creatinine 0.76 (0.6-1.4) mg/dl Est Cr Clr Drug Dosing 78.5 ml/min Est GFR ( Amer) 95.7 ml/min Est GFR (Non-Af Amer) 82.6 ml/min BUN/Creatinine Ratio 16.7 (10-20) Glucose 104 H (70-99) mg/dl Calcium 8.8 (8.5-10.1) mg/dl Total Bilirubin 0.6 (0.2-1) mg/dl AST 20 (15-37) U/L ALT 16 (12-78) U/L Alkaline Phosphatase 104 (45-117) U/L Troponin I < 0.015 (0-0.045) ng/ml Total Protein 6.9 (6.4-8.2) gm/dl Albumin 2.9 L (3.4-5.0) gm/dl Globulin 4.0 (2.5-4.0) gm/dl Albumin/Globulin Ratio 0.7 L (0.9-2) Lipase 140 (73-393) U/L COVID-19 Eval Order SARS-CoV-2 (PCR) (Negative) 06/20/21 06/20/21 Range/Units 22:23 22:23 WBC (4.8-10.8) K/uL RBC (4.7-6.1) M/uL Hgb (14.0-18.0) g/dL Hct (42-52) % MCV (80-100) fL MCH (25-34) pg MCHC (32-36) g/dL RDW Std Deviation (36.4-46.3) fL RDW Coeff of Ana (11.5-14.5) % Plt Count (130-400) K/uL MPV (7.4-10.4) fL Immature Gran % (Auto) % Neut % (Auto) % Lymph % (Auto) % [place] % (Auto) % Eos % (Auto) % Baso % (Auto) % Neut # (Auto) (1.4-6.5) K/uL Lymph # (Auto) (1.2-3.4) K/uL [place] # (Auto) (0.11-0.59) K/uL Eos # (Auto) (0-0.5) K/uL Baso # (Auto) (0-0.2) K/uL Immature Gran # (Auto) (0.00-0.02) K/uL PT (9.0-12.0) Seconds INR (0.9-1.1) APTT (21.0-31.0) Seconds PTT Ratio Sodium (136-145) mmol/L Potassium (3.5-5.1) mmol/L Chloride (98-107) mmol/L Carbon Dioxide (21-32) mmol/L Anion Gap (3-11) BUN (7-18) mg/dl Creatinine (0.6-1.4) mg/dl Est Cr Clr Drug Dosing ml/min Est GFR ( Amer) ml/min Est GFR (Non-Af Amer) ml/min BUN/Creatinine Ratio (10-20) Glucose (70-99) mg/dl Calcium (8.5-10.1) mg/dl Total Bilirubin (0.2-1) mg/dl AST (15-37) U/L ALT (12-78) U/L Alkaline Phosphatase (45-117) U/L Troponin I (0-0.045) ng/ml Total Protein (6.4-8.2) gm/dl Albumin (3.4-5.0) gm/dl Globulin (2.5-4.0) gm/dl Albumin/Globulin Ratio (0.9-2) Lipase (73-393) U/L COVID-19 Eval Order Covid19 at [facility] SARS-CoV-2 (PCR) NEGATIVE (Negative) Imaging Data Attestation: I personally reviewed and interpreted this imaging study as follows: My Impression: Chest x-rayno acute infiltrate, failure, pneumothorax seen Radiologist's Impression: CTA of the abdomen and pelvisplease refer to report. Stable minimal aortic aneurysm measuring 3 cm. 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 Aneurysmal of the right common iliac artery measuring 3.7 cm containing significant mural thrombosis unchanged. 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 Normal appendix. Stable chronic L2 superior endplate compression fracture ECG Data Attestation: I personally reviewed and interpreted this ECG as follows: Indication: + weakness Rate (beats per minute): 70 Rhythm: + normal sinus ECG Intervals/blocks: + First degree AV block, + Normal QRS and + Normal QT ECG [place]: + Normal ECG ST segments: + Normal ST segments ECG Findings: no PACs or no PVCs MDM Narrative This patient comes in as described above. He has had a functional decline is no compression fractures also known aneurysm. IV access was established and blood work was obtained. I did order CAT scan of the abdomen and pelvis to evaluate the aneurysm and other etiologies for his pain. He has no white count or fever to suggest infection. No significant anemia. Normal renal function. I did a CAT scan and there is no change in the aneurysm. The patient has been sleeping the whole time. Urine is pending. I talked to both daughters at length and he has had a functional decline they will feel he if they can safely take him home. I do not think is likely related to his aneurysm it seems more likely related to his compression fracture or other issues. He has nothing to suggest infection. I did discuss case with Dr. Ayala. The patient had a negative Covid test Continuous cardiac monitoring: Orders placed in EMR for continuous cardiac monitoring. He was in normal sinus rhythm rate of 76. Impression & Plan Weakness, Compression fracture of L2, Iliac artery aneurysm, right, Back pain Discharge Plan Visit Data Chief Complaint: Back Injury/Pain Stated Complaint: LETHARGIC, PAIN IN LEGS ED Provider: Kolton Kat Discharge Problem: Weakness, Compression fracture of L2, Iliac artery aneurysm, right, Back pain Forms Stand Alone Forms: My [facility] Prescriptions Prescriptions: No Action aspirin 325 mg Capsule 650 mg PO UD PRN (Reason: Pain) RF: 0 Biofreeze 0.2-3.5 % Gel 1 applic TOPICAL DAILY PRN (Reason: Pain) RF: 0 losartan 50 mg Tablet 50 mg PO QAM Qty: 30 RF: 0 aspirin 81 mg Tablet,Delayed Release (Dr/Ec) 81 mg PO QAM Qty: 30 RF: 0 Referrals Referrals: Santhosh Chiang DO [Outside Practitioners] - Discharge Problem: Compression fracture of L2 Qualifiers: Encounter type: initial encounter Qualified Code(s): S32.020A - Wedge compression fracture of second lumbar vertebra, initial encounter for closed fracture Back pain Qualifiers: Back pain location: low back pain Chronicity: acute Back pain laterality: midline Sciatica presence: without sciatica Qualified Code(s): M54.50 - Low back pain, unspecified
[2021-06-20 22:53] LABS: INR 1.1 (0.9-1.1); Partial Thromboplastin Ratio 1.2; Partial Thromboplastin Time 32.5 Seconds (21.0-31.0); Prothrombin Time 10.9 Seconds (9.0-12.0)
[2021-06-20 22:55] LABS: Alanine Aminotransferase 16 U/L (12-78); Albumin Level 2.9 gm/dl (3.4-5.0); Aspartate Aminotransferase 20 U/L (15-37); BUN Creatinine Ratio 16.7 (10-20); Blood Urea Nitrogen 13 mg/dl (7-18); Calcium 8.8 mg/dl (8.5-10.1); Carbon Dioxide 28 mmol/L (21-32); Chloride 101 mmol/L (98-107); Creatinine Clr Calc Pharmacy 78.5 ml/min; Est GFR (African American) 95.7 ml/min; Est GFR (Non-African American) 82.6 ml/min; Glucose 104 mg/dl (70-99); Lipase 140 U/L (73-393); Potassium 4.1 mmol/L (3.5-5.1); Sodium 135 mmol/L (136-145)
[2021-06-20 23:00] LABS: Albumin Globulin Ratio 0.7 (0.9-2); Alkaline Phosphatase 104 U/L (45-117); Bilirubin,Total 0.6 mg/dl (0.2-1); Total Protein 6.9 gm/dl (6.4-8.2); Troponin I < 0.015 ng/ml (0-0.045)
[2021-06-21] MEDS ORDERED: OPTIRAY 320 125ml IV ONE (00:13)
[2021-06-21 02:34] LABS: POC Urine Bilirubin Negative (Negative); POC Urine Blood Trace (Negative); POC Urine Glucose Normal (Normal); POC Urine Ketones 1+ (Small) (Negative); POC Urine Leukocytes Negative (Negative); POC Urine Nitrite Negative (Negative); POC Urine Protein Negative (Negative); POC Urine Urobilinogen Normal (Normal); POC Urine pH 6 (4.5-7.5)
[2021-06-21 02:42] LABS: Appearance Urine Clear (Clear); Bacteria Urine Automated Negative (Negative); Bilirubin Urine Negative (Negative); Blood Urine Trace (Negative); Cast Urine Automated 0 /lpf (0-5); Color Urine Yellow; Glucose Urine UA Negative (Negative); Ketones Urine Trace (Negative); Leukocyte Esterase Urine Negative (Negative); Nitrite Urine Negative (Negative); Protein Urine Negative (Negative); Specific Gravity Urine > 1.045 (1.000-1.030); Urobilinogen Urine Negative (Negative); pH Urine 6.5 (4.5-7.5)
--- NOTE | 2021-06-21 03:09 | History & Physical Report ---
Date of Service June 21, 2021 Assessment & Plan (1) Dehydration: Plan: Placed on NSS + KCl 20 mEq at 100 mils per hour x2 L (2) Weakness: Plan: Likely multifactorial: Decreased oral intake, decreased ability exercise due to arthritis and arterial disease. He in particular has persistent pain across his lumbar spine spine associated with the L2 compression fracture When his strength is improved and of, would likely benefit from PT/OT. (3) Iliac artery aneurysm, left: Plan: CT angiography abdomen pelvis- Right common iliac artery aneurysm 3.7 cm Left common iliac artery aneurysm 1.6 cm Patient was to have surgery by Dr. Davies yesterday, however, his daughter puts his back due to the fact that she was going to be out of town. (4) Iliac artery aneurysm, right: Plan: See above (5) HTN (hypertension): Plan: Continue losartan (6) Compression fracture of L2: Plan: Patient appears to continue be having significant discomfort when he goes to lay down, or sit down. He may benefit from a consult from pain management (7) Decreased oral intake: Plan: Patient has had noticeable weight loss per family. He denies any abdominal pain. He reports not having any appetite. He was tested to be COVID-19 negative in the ED this evening History of Present Illness Chief Complaint: The patient is brought to the emergency department by family due to concerns regarding generalized pain in his back and legs when he lays down, and decreased oral intake over the past several days as noted by family. Primary Care Provider: NO PCP The patient is an 86-year-old male with a past medical history including hypertension, L2 compression fracture, common iliac arteries aneurysm, progressive back and leg pain. The patient presents with symptoms as noted above. He was to have seen Dr. Davies for surgery yesterday, but his daughter pushed it back because she was going to be out of town. The daughter is in the room, feels that his generalized symptoms are related to the iliac artery aneurysm Allergies Allergy/AdvReac Type Severity Reaction Status Date / Time No Known Allergies Allergy Verified 06/20/21 23:23 Home Medications Medication Instructions Recorded Confirmed Type aspirin 81 mg tablet,delayed 81 mg PO QAM #30 tab 04/09/21 06/20/21 Rx release losartan 50 mg tablet 50 mg PO QAM #30 tab 04/09/21 06/20/21 Rx aspirin 325 mg capsule 650 mg PO UD PRN 06/19/21 06/20/21 History camphor-menthol 0.2 %-3.5 % 1 applic TOPICAL DAILY PRN 06/19/21 06/20/21 History topical gel Past Med/Surg History Medical History (Updated 06/21/21 @ 05:08 by Frankie Tavares MD) Cancer TESTICULAR-TREATED WITH MEDICATION Compression fracture A2-[id number] BRACE Hypertension Short-term memory loss SOB (shortness of breath) on exertion Surgical History History of colonoscopy MULTIPLE History of tonsillectomy Family History Family/Other Family history of diabetes mellitus GRANDDAUGHTER Social History Smoking Status: Former smoker Second Hand Exposure: No; Hx Alcohol Use: No Hx Substance Use: No Preferred Language: Yakut Communication Ability: Effective Manager Front Office Required: No Beliefs That Will Affect Care: None marital status: Current Living Situation: Spouse current occupational status: retired Feels Safe at Home: Yes Assistive Devices: Cane, Denture - Upper, Denture - Lower, Glasses and Walker Review of Systems Review of Systems: The patient denies chest pain, palpitations, shortness of breath, dyspnea on exertion, cough, lower extremity swelling, sore throat, fevers, chills, sweats, nausea, vomiting, diarrhea , constipation, abdominal pain, pelvic pain, blood in urine or stool, dysuria, urinary frequency or urgency, loss of consciousness, rash, abnormal bruising or bleeding, focal or generalized weakness, numbness or tingling in arms, neck pain, or night sweats. The review of systems is otherwise negative other than for that already noted above, and at least 10 systems have been reviewed. Physical Exam Physical Exam: The patient is awake, alert and oriented 3, normocephalic and atraumatic, lying in bed and in no acute distress. HEENT--PERRL, EOMI, mucous membranes and oropharynx dry. Neck--supple. No JVD. No bruits. Thyroid normal, trachea midline, no adenopathy. Heart--normal S1 and S2. No murmurs, rubs or gallops. Lungs--clear bilaterally, no respiratory distress, no accessory muscle use. Abdomen--normal bowel sounds and soft. Nontender. Nondistended, no hernias or masses, no organomegaly. Extremities--no cyanosis or clubbing. No edema. There are diminished pulses bilaterally Dermatologic--normal skin turgor, normal color, no abnormal lymph nodes, no rash. Neurologic--cranial nerves II through XII grossly intact. Rheumatologic--limited exam Psychiatric--normal affect. Results & Data Results & Data ([facility]) Vital Signs (Past 12 Hours) Vital Signs Temp Pulse Pulse Resp BP BP Pulse Ox 06/21/21 02:12 73 16 157/91 H 98 06/20/21 22:20 76 76 18 157/91 H 97 06/20/21 20:39 16 157/91 H 96 06/20/21 20:36 79 18 157/91 H 94 06/20/21 18:56 97.5 F L 84 20 128/85 97 Laboratory Results Laboratory Results WBC 5.07 K/uL (4.8-10.8) 06/20/21 22:22 RBC 4.57 M/uL (4.7-6.1) L 06/20/21 22:22 Hgb 14.3 g/dL (14.0-18.0) 06/20/21 22:22 Hct 41.5 % (42-52) L 06/20/21 22:22 MCV 90.8 fL (80-100) 06/20/21 22:22 MCH 31.3 pg (25-34) 06/20/21 22:22 MCHC 34.5 g/dL (32-36) 06/20/21 22:22 RDW Std Deviation 49.0 fL (36.4-46.3) H 06/20/21 22:22 RDW Coeff of Ana 14.6 % (11.5-14.5) H 06/20/21 22:22 Plt Count 194 K/uL (130-400) 06/20/21 22:22 MPV 9.5 fL (7.4-10.4) 06/20/21 22:22 Immature Gran % (Auto) 0.0 % 06/20/21 22: Neut % (Auto) 64.4 % 06/20/21 22:22 Lymph % (Auto) 23.3 % 06/20/21 22:22 [place] % (Auto) 10.3 % 06/20/21 22:22 Eos % (Auto) 1.6 % 06/20/21 22:22 Baso % (Auto) 0.4 % 06/20/21 22:22 Neut # (Auto) 3.27 K/uL (1.4-6.5) 06/20/21 22:22 Lymph # (Auto) 1.18 K/uL (1.2-3.4) L 06/20/21 22:22 [place] # (Auto) 0.52 K/uL (0.11-0.59) 06/20/21 22:22 Eos # (Auto) 0.08 K/uL (0-0.5) 06/20/21 22:22 Baso # (Auto) 0.02 K/uL (0-0.2) 06/20/21 22:22 Immature Gran # (Auto) 0.00 K/uL (0.00-0.02) 06/20/21 22:22 PT 10.9 Seconds (9.0-12.0) 06/20/21 22:22 INR 1.1 (0.9-1.1) 06/20/21 22:22 APTT 32.5 Seconds (21.0-31.0) H 06/20/21 22:22 PTT Ratio 1.2 06/20/21 22:22 Sodium 135 mmol/L (136-145) L 06/20/21 22:22 Potassium 4.1 mmol/L (3.5-5.1) 06/20/21 22:22 Chloride 101 mmol/L (98-107) 06/20/21 22:22 Carbon Dioxide 28 mmol/L (21-32) 06/20/21 22:22 Anion Gap 6.0 (3-11) 06/20/21 22:22 BUN 13 mg/dl (7-18) 06/20/21 22:22 Creatinine 0.76 mg/dl (0.6-1.4) 06/20/21 22:22 Est Cr Clr Drug Dosing 78.5 ml/min 06/20/21 22:22 Est GFR ( Amer) 95.7 ml/min 06/20/21 22:22 Est GFR (Non-Af Amer) 82.6 ml/min 06/20/21 22:22 BUN/Creatinine Ratio 16.7 (10-20) 06/20/21 22:22 Glucose 104 mg/dl (70-99) H 06/20/21 22:22 Calcium 8.8 mg/dl (8.5-10.1) 06/20/21 22:22 Total Bilirubin 0.6 mg/dl (0.2-1) 06/20/21 22:22 AST 20 U/L (15-37) 06/20/21 22:22 ALT 16 U/L (12-78) 06/20/21 22:22 Alkaline Phosphatase 104 U/L (45-117) 06/20/21 22:22 Troponin I < 0.015 ng/ml (0-0.045) 06/20/21 22:22 Total Protein 6.9 gm/dl (6.4-8.2) 06/20/21 22:22 Albumin 2.9 gm/dl (3.4-5.0) L 06/20/21 22:22 Globulin 4.0 gm/dl (2.5-4.0) 06/20/21 22:22 Albumin/Globulin Ratio 0.7 (0.9-2) L 06/20/21 22:22 Lipase 140 U/L (73-393) 06/20/21 22:22 Urine Color Yellow 06/21/21 02:30 Urine Appearance Clear (Clear) 06/21/21 02:30 Urine pH 6.5 (4.5-7.5) 06/21/21 02:30 POC Urine pH 6 (4.5-7.5) 06/21/21 02:30 Ur Specific [place] > 1.045 (1.000-1.030) H 06/21/21 02:30 Urine Protein Negative (Negative) 06/21/21 02:30 POC Urine Protein Negative (Negative) 06/21/21 02:30 Urine Glucose (UA) Negative (Negative) 06/21/21 02:30 POC Ur Glucose (UA) Normal (Normal) 06/21/21 02:30 Urine Ketones Trace (Negative) H 06/21/21 02:30 POC Urine Ketones 1+ (Small) (Negative) H 06/21/21 02:30 Urine Blood Trace (Negative) H 06/21/21 02:30 POC Urine Blood Trace (Negative) H 06/21/21 02:30 Urine Nitrite Negative (Negative) 06/21/21 02:30 POC Urine Nitrite Negative (Negative) 06/21/21 02:30 Urine Bilirubin Negative (Negative) 06/21/21 02:30 POC Urine Bilirubin Negative (Negative) 06/21/21 02:30 Urine Urobilinogen Negative (Negative) 06/21/21 02:30 POC Urine Urobilinogen Normal (Normal) 06/21/21 02:30 Ur Leukocyte Esterase Negative (Negative) 06/21/21 02:30 POC U Leukocyte Esteras Negative (Negative) 06/21/21 02:30 Urine WBC (Auto) 1-5 /hpf (0-5) 06/21/21 02:30 Urine RBC (Auto) 5-10 /hpf (0-4) H 06/21/21 02:30 U Hyaline Cast (Auto) 0 /lpf (0-5) 06/21/21 02:30 U Epithel Cells (Auto) 10-20 /lpf (0-5) H 06/21/21 02:30 Urine Bacteria (Auto) Negative (Negative) 06/21/21 02:30 COVID-19 Eval Order Covid19 at [facility] 06/20/21 22:23 SARS-CoV-2 (PCR) NEGATIVE (Negative) 06/20/21 22:23 Diagnostic Findings Patient: KATHARINA CHUN (Male) : 35 Status: ER Date: 06/21/21 00:21 Room #: History: abdominal pain, history of aneurysm Pt. is very confused unable to ra ise arms for scan. Pt. is a poor historian unable to determine if appendix is present or not Slices: [id number] Priors: Tech: Cassidy Roachn @ [phone] Exams: CTA ABDOMEN & PELVIS Contrast: IV Amt: Optiray 320 115 mL Accession Numbers: [id number] Referring Physician: REFERRED SELF Preliminary Findings Only See Final Report For Complete Findings CTA ABDOMEN & PELVIS: Comparison: CT abdomen and pelvis 04/02/21 Aortoiliac atherosclerosis. Stable infrarenal abdominal aortic aneurysm measuring 3 cm. Aneurysmal dilatation of the left common iliac artery measuring 1.6 cm. Aneurysm of the right common iliac artery measuring 3.7 cm containing significant mural thrombus, unchanged. 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 Small pleural effusions. Bibasilar atelectasis. Liver, gallbladder, spleen, pancreas, adrenal glands, and kidneys are unremarkable. Urinary bladder and prostate are unremarkable. No bowel obstruction. Colonic stool retention suggesting constipation. Normal appendix. Osteopenia. No acute osseous findings. Stable chronic L2 superior endplate compression fracture. Radiologist: Baldev Reina M.D. Study ready at 00:23 and initial results transmitted at 00:37 *This report constitutes a preliminary interpretation only. Non-acute findings felt to be unrelated to the clinical presentation may not be discussed in this report. The study will be interpreted and a final report will be generated by the local Radiologist the following shift. To reach the hospital radiology department call [phone]. If a discrepancy is found between the preliminary and final interpretations of this study, please notify us via our Client Portal at [email or web address], under [email or web address].You can also fax this report with a description of the discrepancy, or include the final report, to our daytime fax number [phone].If faxing, please indicate the severity of discrepancy using one of the following categories: [ ] 1 - Agree/Informational [ ] 2 - Unlikely to Affect Management [ ] 3 - Possible Eventual Change of Management [ ] 4 - Probable Immediate Change of Management For all other patient related information, please fax us at [phone]. [id number] Patient: KATHARINA CHUN (Male) : 35 Status: ER Date: 06/21/21 03:46 Room #: History: Pt. has been having frequent falls, altered mental status Pt. very confused, difficulty lying flat/holding still for scan, best images possible Slices: 74 Priors: Tech: Vanessa Roach @ [phone] Exams: CT HEAD Contrast: Accession Numbers: [id number] Referring Physician: REFERRED SELF Preliminary Findings Only See Final Report For Complete Findings CT HEAD: Mild motion artifact. No intracranial hemorrhage. No significant mass effect or midline shift. No skull fracture. No significant overlying acute traumatic soft tissue abnormality identified radiographically. No radiopaque foreign body. Underlying cerebral atrophy and deep white matter presumed microvascular changes. Radiologist: Horacio Mohan MD Study ready at 03:48 and initial results transmitted at 04:49 *This report constitutes a preliminary interpretation only. Non-acute findings felt to be unrelated to the clinical presentation may not be discussed in this report. The study will be interpreted and a final report will be generated by the local Radiologist the following shift. To reach the hospital radiology department call [phone]. If a discrepancy is found between the preliminary and final interpretations of this study, please notify us via our Client Portal at [email or web address] under [email or web address].You can also fax this report with a description of the discrepancy, or include the final report, to our daytime fax number [phone].If faxing, please indicate the severity of discrepancy using one of the following categories: [ ] 1 - Agree/Informational [ ] 2 - Unlikely to Affect Management [ ] 3 - Possible Eventual Change of Management [ ] 4 - Probable Immediate Change of Management For all other patient related information, please fax us at [phone]. [id number] Code Status & VTE Plan Code Status Full code VTE Prophylaxis Plan VTE Prophylaxis will be ordered: Yes PG Care Time/CCT Total # of Minutes Spent Total Time Spent with Patient: Total time spent is greater than 50% in coordination of care (as documented) at patient's floor/unit and/or counseling patient: Coding Level of Care Code INT OBSERVATION CARE 70M LVL 3 Diagnoses Iliac artery aneurysm, left I72.3 Iliac artery aneurysm, right I72.3 HTN (hypertension) I10 Compression fracture of L2 S32.020A Encounter type: initial encounter Weakness R53.1 Dehydration E86.0 Decreased oral intake R63.8 (1) Compression fracture of L2 Encounter type: initial encounter Qualified Code(s): S32.020A - Wedge com pression fracture of second lumbar vertebra, initial encounter for closed fracture
[2021-06-21] MEDS ORDERED: ONDANSETRON INJ 2 MG/ML 2 ML VIAL IV PRN (06:27)
[2021-06-21] MEDS ORDERED: ACETAMINOPHEN 325 MG TAB PO PRN (06:27)
--- NOTE | 2021-06-21 07:12 | CT Scan Report ---
CT SCAN OF THE BRAIN WITHOUT IV CONTRAST CLINICAL HISTORY: Change in mental status. Falls. COMPARISON STUDY: No priors. TECHNIQUE: Unenhanced axial CT scan of the brain is performed from the vertex to the skull base. A do se lowering technique was utilized adhering to the principles of ALARA. CT DOSE: 691.05 mGy.cm FINDINGS: Brain parenchyma: There are age-related involutional changes noting mild to moderate subcortical and periventricular microangiopathic change. There is no hemorrhage, mass effect, or evidence of acute t erritorial ischemia by CT criteria. Gutierrez-white matter differentiation is preserved. No extra-axial fl uid collection is seen. Ventricles, sulci, cisterns: Prominent secondary to involutional change. Intracranial vasculature: There is atherosclerotic calcification of the cavernous carotid and vertebr al arteries. Calvarium: The skeletal structures are osteopenic. No depressed calvarial fracture is identified. Sinuses and mastoids: The visualized paranasal sinuses are clear. The mastoid air cells are well pneu matized. Orbits: The bony orbits are grossly intact. There are bilateral ocular lens implants. IMPRESSION: There is no hemorrhage, mass effect, or evidence of acute territorial ischemia by CT noman merlos. ACT 112: Negative or not required by law. Electronically signed by: Gregory Guerrero M.D. 06/21/2021 7:11 AM
[2021-06-21] MEDS: NSS + 20MEQ KCL 20 MEQ/1,000 ML BAG IV SCH ×2 (08:53→21:20)
--- NOTE | 2021-06-21 09:18 | CT Scan Report ---
CT angio abdomen pelvis w con HISTORY: Generalized abdominal pain. hx of iliac aneurysm, eval for worsening TECHNIQUE: Multiaxial CT images of the abdomen and pelvis were performed following the use of intrave nous contrast to evaluate the major arterial structures. Maximal intensity projection images were als o obtained. COMPARISON STUDY: Abdomen and pelvis CTA 04/05/2021. FINDINGS: There are T12 and L1 subacute mild to moderate super endplate compression fractures. Fillin g defects seen within the right lower lobe pulmonary arteries consistent with a pulmonary embolus. Sm all right pleural effusion is noted. Emphysema. Bibasilar densities may represent atelectasis. A pneu monia could also have a similar appearance. No pneumoperitoneum. No pneumatosis. A 1.4 cm hypodense l esion within the right hepatic lobe. This favors a cyst. The spleen, adrenal glands, pancreas, and ga llbladder are unremarkable. No hydronephrosis. No retroperitoneal lymphadenopathy. The bladder is unr emarkable. No pelvic free fluid. No retroperitoneal hematoma. Moderate well-formed stool within the c olon. No bowel wall thickening or obstruction. Normal appendix. Evidence for prior left inguinal jessica ia repair. Colonic diverticulosis. No evidence for acute diverticulitis. Mild aneurysmal dilatation of the infrarenal abdominal aorta measuring up to 3.2 cm in diameter. Ther e is again noted a partially thrombosed right common iliac artery aneurysm measuring approximately 3. 7 cm. This is similar to the prior study. Mild aneurysmal dilatation of the distal left common iliac artery measuring 1.7 cm. Mild aneurysmal dilatation of the ascending thoracic aorta measuring 4.4 cm in diameter. The celiac artery, superior mesenteric artery, bilateral renal arteries, and inferior me senteric artery are patent. No evidence for arterial dissection. IMPRESSION: 1. Right lower lobe pulmonary emboli. 2. No change in the aneurysmal dilatation of the ascending thoracic aorta, infrarenal abdominal aorta , and bilateral iliac arteries as described above. 3. No definite bowel wall thickening or obstruction. 4. Colonic diverticulosis. No evidence for acute diverticulitis. 5. Small right pleural effusion. 6. Healing T12 and L2 mild superior endplate compression fractures. The T12 compression fracture is n ew compared the prior studies. 7. These findings were called/faxed to the emergency department following dictation. ACT 112: Negative or not required by law. Electronically signed by: Benny Green M.D. 06/21/2021 9:17 AM
[2021-06-21] MEDS ORDERED: Heparin IV Adult Wt-Based Low-Dose *NO* Bolus Protocol ONE (10:44)
[2021-06-21] MEDS: HEPARIN SODIUM/DEXTROSE 25,000 UNITS/500 ML BAG IV SCH (11:33)
[2021-06-21 11:45] LABS: Basophils # (auto) 0.03 K/uL (0-0.2); Basophils % (auto) 0.6 %; Eosinophils # (auto) 0.11 K/uL (0-0.5); Eosinophils % (auto) 2.2 %; Hematocrit (blood only) 39.9 % (42-52); Hemoglobin 13.6 g/dL (14.0-18.0); Immature Granulocytes # (auto) 0.01 K/uL (0.00-0.02); Immature Granulocytes % (auto) 0.2 %; Lymphocytes # (auto) 1.46 K/uL (1.2-3.4); Lymphocytes % (auto) 29.8 %; Mean Corpuscular Hemoglobin 30.9 pg (25-34); Mean Corpuscular Volume 90.7 fL (80-100); Mean Platelet Volume 9.4 fL (7.4-10.4); Monocytes # (auto) 0.41 K/uL (0.11-0.59); Monocytes % (auto) 8.4 %; Neutrophils # (auto) 2.88 K/uL (1.4-6.5); Neutrophils % (auto) 58.8 %; Platelet Count 184 K/uL (130-400); RDW Coefficient of Variation 14.6 % (11.5-14.5); RDW Standard Deviation 48.7 fL (36.4-46.3)
[2021-06-21 11:46] LABS: Mean Corpuscular Hgb Conc 34.1 g/dL (32-36)
[2021-06-21 11:56] LABS: INR 1.1 (0.9-1.1); Partial Thromboplastin Ratio 1.3; Partial Thromboplastin Time 34.1 Seconds (21.0-31.0)
[2021-06-21] MEDS ORDERED: INFLUENZA VACCINE HIGH DOSE PF 65+ 0.7 ML SYR IM ONE (13:00)
--- NOTE | 2021-06-21 13:39 | Ultrasound Report ---
BILATERAL LOWER EXTREMITY VENOUS DOPPLER HISTORY: Pulmonary emboli. Assess for DVT. COMPARISON STUDY: None. FINDINGS: There is normal compressibility, flow, and augmentation within the bilateral lower extremit y deep venous systems. IMPRESSION: No DVT within the right or left lower extremity. ACT 112: Negative or not required by law. Electronically signed by: Benny Green M.D. 06/21/2021 1:37 PM
[2021-06-21] MEDS: LOSARTAN POTASSIUM 50 MG TAB PO SCH (17:00)
[2021-06-21 17:55] LABS: Partial Thromboplastin Ratio 1.8
[2021-06-21 18:01] LABS: Partial Thromboplastin Time 46.4 Seconds (21.0-31.0)
--- NOTE | 2021-06-21 20:06 | Hospitalist Progress Note ---
Date of Service June 21, 2021 Assessment & Plan (1) Pulmonary embolism: Plan: - Maybe contributing to his worsening presentation this week? However has had similar issues in the past with worsening pain and limited movement - CT - RLL pulmonary emboli; no change in aneurysmal dilatation of the ascending thoracic aorta, infrarenal abdominal aorta, and bilateral iliac arteries; healing T12 and L2 mild superior endplate compression fracture - T12 is new compared to last study - Start heparin gtt and likely can convert to NOAC - can discuss with Dr. Davies to see if any preference given his planned aneurysm repair which may need to be postponed for treatment - U/S does not reveal further DVT (2) Dehydration: Plan: - Placed on NSS + KCl 20 mEq at 80 mils per hour x2 L (3) Weakness: Plan: - Likely multifactorial: Decreased oral intake, decreased ability exercise due to arthritis and arterial disease. - He in particular has persistent pain across his lumbar spine spine associated with the L2 compression fracture - also has T12 which is new but shows signs of healing - Daughter to bring in back brace tomorrow - will get PT/OT (4) Iliac artery aneurysm, left: Plan: - STABLE - R and L - Patient was to have surgery by Dr. Davies but had to reschedule - currently due for Jun and will discuss with Keke to see if this needs further pushed (5) Iliac artery aneurysm, right: Plan: See above (6) HTN (hypertension): Plan: Continue losartan (7) Compression fracture of L2: Plan: - Lidoderm patches; ALFREDO Tylenol - He may benefit from a consult from pain management (8) Decreased oral intake: Plan: Patient has had noticeable weight loss per family. He denies any abdominal pain. He reports not having any appetite. He was tested to be COVID-19 negative in the ED this evening Plan: - Maintain pain regimen; likely can convert to oral agent in AM for anti- coagulation; obtain PT/OT to help determine disposition Admission and Anticipated Discharge Date Admission Date: June 21, 2021 Subjective Reports feeling well today. Feels his baseline and verbalizes no complaints. Discussed with his family who states this past week he had a rapid decline in ability to ambulate and pain in his legs. Only acute finding is that of a PE however no chest pain or SOB and not requiring O2. Wonder if his worsening earlier this week could have been when the PE occurred with the pain and maybe some fatigue from the clot? May be from some dehdyration. Review of Systems Review of Systems: REVIEW OF SYSTEMS General/Constitutional: Denies fever/chills Cardiovascular: Denies chest pain, palpitations, edema Respiratory: Denies cough, sputum, SOB, wheezing, orthopnea GI: Denies nausea, vomiting, abdominal pain, constipation, diarrhea : Denies dysuria Musculoskeletal: + chronic back pain (manageable currently) Neurologic: Denies dizziness/lightheadedness Hematologic/Lymphatic: Denies bleeding/clotting abnormalities Physical Exam Physical Exam: PHYSICAL EXAM General Appearance: Frail elderly male in NAD who is A&O HEENT: Head is normocephalic/atraumatic; Hearing grossly intact; Mucous membranes moist Neck: Supple; Trachea midline; Neg JVD; Neg lymphadenopathy Heart: RRR with no M/G/R Lungs: CTA in all lung cruz bilaterally; Respirations unlabored; Neg accessory muscle use Abdomen: Soft, non-tender, non-distended; Positive BS x 4 quadrants Extremities: Neg cyanosis or edema Neurological: Speech clear; Gross motor/sensory function intact; Neg focal neurologic deficits Psychiatric: Appropriate mood/affect Results & Data Results & Data ([facility]) Vital Signs (Past 12 Hours) Vital Signs Temp Pulse Resp BP Pulse Ox 06/21/21 15:52 36.7 C 68 16 169/76 H 95 06/21/21 10:22 79 131/73 PG Care Time/CCT Total # of Minutes Spent Total Time Spent with Patient: Total time spent is greater than 50% in coordination of care (as documented) at patient's floor/unit and/or counseling patient: Coding Level of Care Code None Diagnoses Dehydration E86.0 Weakness R53.1 Iliac artery aneurysm, left I72.3 Iliac artery aneurysm, right I72.3 HTN (hypertension) I10 Compression fracture of L2 S32.020A Encounter type: initial encounter Decreased oral intake R63.8 Pulmonary embolism I26.99 (1) Compression fracture of L2 Encounter type: initial encounter Qualified Code(s): S32.020A - Wedge compression fracture of second lumbar vertebra, initial encounter for closed fracture
[2021-06-21] MEDS ORDERED: POLYETHYLENE (MIRALAX) 17 GM PACK PO PRN (20:07)
[2021-06-21] MEDS: ACETAMINOPHEN 500 MG TAB PO SCH (21:20)
--- NOTE | 2021-06-21 22:24 | Electrocardiogram Report ---
Test Reason : Blood Pressure : / mmHG Vent. Rate : 072 BPM Atrial Rate : 072 BPM P-R Int : 252 ms QRS Dur : 090 ms QT Int : 382 ms P-R-T Axes : 064 008 065 degrees QTc Int : 418 ms Sinus rhythm with 1st degree A-V block with Premature atrial complexes No previous ECGs available Confirmed by Jovany Miguel ([id number]) on 06/21/2021 10:23:54 PM Referred By: REFERRED SELF Confirmed By:Jovany Miguel
[2021-06-22] MEDS: ACETAMINOPHEN 500 MG TAB PO SCH ×3 (08:34→19:59)
[2021-06-22] MEDS: LOSARTAN POTASSIUM 50 MG TAB PO SCH (08:35)
[2021-06-22] MEDS: LIDOCAINE 5% 1 PATCH TD SCH (08:35)
[2021-06-22 10:47] LABS: Hematocrit (blood only) 42.1 % (42-52); Hemoglobin 15.1 g/dL (14.0-18.0); Mean Corpuscular Hgb Conc 35.9 g/dL (32-36); Mean Corpuscular Volume 89.2 fL (80-100); Mean Platelet Volume 9.7 fL (7.4-10.4); Platelet Count 211 K/uL (130-400); RDW Coefficient of Variation 14.4 % (11.5-14.5); RDW Standard Deviation 47.3 fL (36.4-46.3); Red Blood Count 4.72 M/uL (4.7-6.1)
[2021-06-22 11:11] LABS: Partial Thromboplastin Ratio 2.5
[2021-06-22 11:24] LABS: Partial Thromboplastin Time 66.8 Seconds (21.0-31.0)
[2021-06-22 11:31] LABS: BUN Creatinine Ratio 9.4 (10-20); Creatinine Clr Calc Pharmacy 84.9 ml/min; Est GFR (Non-African American) 85.5 ml/min; Potassium 3.6 mmol/L (3.5-5.1)
[2021-06-22] MEDS: HEPARIN SODIUM/DEXTROSE 25,000 UNITS/500 ML BAG IV SCH (12:35)
[2021-06-22] MEDS ORDERED: OPTIRAY 320 125ml IV ONE (15:42)
--- NOTE | 2021-06-22 16:50 | CT Scan Report ---
CT angio chest PE protocol INDICATION: MN ^PE - better determination of extent. TECHNIQUE: Multidetector row helical CT of the chest was performed. Coronal and sagittal reformations were obtained. Automated dose lowering techniques and/or adjustment according to patient size were u tilized for this exam. Comparison: None available at the time of this dictation. FINDINGS: Lungs and pleura: Small bilateral pleural effusions with adjacent atelectasis. Diffuse emphysematous changes are seen. Heart and pericardium: Cardiomegaly with biatrial enlargement is seen. No evidence of right heart str ain. Vessels: Pulmonary trunk is dilated measuring 40 mm in diameter. There is a pulmonary embolus which b egins nonocclusive lesion in the right lower lobar artery and extends to partially or totally occlude multiple segment mental branches, most prominently with total occlusion of the medial basal segmenta l artery. Mediastinum and candice: Unremarkable. Chest wall and lower neck: There is a left thyroid nodule measuring up to 18 mm in diameter. Abdomen: Unremarkable. Bones: Degenerative changes in the thoracic spine. IMPRESSION: 1. Pulmonary embolism which is partially occlusive in the right lower lobe artery and with partial a nd total occlusion of multiple segmental arteries on the right. No evidence of right heart strain. 2. Diffuse emphysematous changes with pulmonary hypertension. 3. Left thyroid nodule. If not previously evaluated, nonemergent thyroid ultrasound can be performed . ACT 112: Negative or not required by law. Electronically signed by: Corey Alfaro M.D. 06/22/2021 4:48 PM
--- NOTE | 2021-06-22 17:19 | Hospitalist Progress Note ---
Date of Service June 22, 2021 Assessment & Plan (1) Pulmonary embolism: Plan: - Maybe contributing to his worsening presentation this week? However has had similar issues in the past with worsening pain and limited movement - CT - RLL pulmonary emboli; no change in aneurysmal dilatation of the ascending thoracic aorta, infrarenal abdominal aorta, and bilateral iliac arteries; healing T12 and L2 mild superior endplate compression fracture - T12 is new compared to last study - CTA - PE partially occlusive in the RLL artery and with partial and total occlusion of multiple segmental arteries on the right. No evidence of R heart strain - Started heparin gtt - may need to sidebar Dr. Davies on Thursday to see if any preference given his planned aneurysm repair which may need to be postponed anyway to favor PE treatment -- Patient is a challenge for anti-coagulation. Even though appearing asymptomatic there are a few PEs which would warrant treatment however high fall risk and has these aneurysms - given age and bleeding risk, utilizing Coumadin would be challenging; NOACs are simple but would need held for a couple days for procedures; could consider Lovenox which I did speak with patient's daughters who has done injections before and could be taught - U/S does not reveal further DVT (2) Dehydration: Plan: - Placed on NSS + KCl 20 mEq at 80 mils per hour x2 L - will hold additional fluids (3) Weakness: Plan: - Likely multifactorial: Decreased oral intake, decreased ability of exercise due to arthritis and arterial disease. - He in particular has persistent pain across his lumbar spine spine associated with the L2 compression fracture - also has T12 which is new but shows signs of healing - Back brace has been brought in - will get PT/OT (4) Iliac artery aneurysm, left: Plan: - STABLE - R and L - Patient was to have surgery by Dr. Davies but had to reschedule - currently due for Jun and will discuss with Keke to see if this needs further pushed - may need to discuss on Thursday - Can also discuss whether beta jose rafael therapy should be initiated. Does occ. have soft BPs so concern for increased falls would need to be considered (5) Iliac artery aneurysm, right: Plan: See above (6) HTN (hypertension): Plan: Continue losartan (7) Compression fracture of L2: Plan: - Lidoderm patches; ALFREDO Tylenol - He may benefit from a consult from pain management as outpatient (8) Decreased oral intake: Plan: Patient has had noticeable weight loss per family. He denies any abdominal pain. - given PEs...underlying malignancy? -- CTA does reveal a thyroid nodule - will check TSH in AM He reports not having any appetite. He was tested to be COVID-19 negative in the ED this evening Plan: - Maintain pain regimen; determining best anti-coagulation option; obtain PT/OT to help determine disposition - Updated daughter's over the phone today Admission and Anticipated Discharge Date Admission Date: June 21, 2021 Subjective Reports feeling well today. Some ankle and back stiffness that seems to be relieved with warm blankets. Tolerating the heparin gtt. Verbalizes no other complaints Review of Systems Review of Systems: REVIEW OF SYSTEMS General/Constitutional: Denies fever/chills Cardiovascular: Denies chest pain, palpitations, edema Respiratory: Denies cough, sputum, SOB, wheezing GI: Denies nausea, vomiting, abdominal pain, constipation, diarrhea : Denies dysuria Musculoskeletal: Mild stiffness of his ankles and shoulders but improved with a warm blanket Neurologic: Denies dizziness/lightheadedness Physical Exam Physical Exam: PHYSICAL EXAM General Appearance: Frail elderly male in NAD who is A&O HEENT: Head is normocephalic/atraumatic; Hearing grossly intact; Mucous membranes moist Neck: Supple; Trachea midline; Neg JVD; Neg lymphadenopathy Heart: RRR with no M/G/R Lungs: CTA in all lung cruz bilaterally; Respirations unlabored; Neg accessory muscle use Abdomen: Soft, non-tender, non-distended; Positive BS x 4 quadrants Extremities: Neg cyanosis or edema Neurological: Speech clear; Gross motor/sensory function intact; Neg focal neurologic deficits Psychiatric: Appropriate mood/affect; forgetful Results & Data Results & Data ([facility]) Vital Signs (Past 12 Hours) Vital Signs Temp Pulse Pulse Resp BP BP Pulse Ox 06/22/21 16:00 36.7 C 89 18 102/61 94 06/22/21 07:20 36.3 C L 62 18 179/79 H 96 PG Care Time/CCT Total # of Minutes Spent Total Time Spent with Patient: Total time spent is greater than 50% in coordination of care (as documented) at patient's floor/unit and/or counseling patient: Coding Level of Care Code 24985 Subseq Obs Care Lvl 2 Diagnoses Pulmonary embolism I26.99 Dehydration E86.0 Weakness R53.1 Iliac artery aneurysm, left I72.3 Iliac artery aneurysm, right I72.3 HTN (hypertension) I10 Compression fracture of L2 S32.020A Encounter type: initial encounter Decreased oral intake R63.8 (1) Compression fracture of L2 Encounter type: initial encounter Qualified Code(s): S32.020A - Wedge compression fracture of second lumbar vertebra, initial encounter for closed fracture
[2021-06-22 19:12] LABS: Partial Thromboplastin Ratio 1.9
[2021-06-22] MEDS: DICLOFENAC SOD 1% GEL 100 GM TUBE EXT SCH (20:02)
[2021-06-23] MEDS: ACETAMINOPHEN 500 MG TAB PO SCH ×3 (09:26→20:51)
[2021-06-23] MEDS: LOSARTAN POTASSIUM 50 MG TAB PO SCH (09:26)
[2021-06-23] MEDS: LIDOCAINE 5% 1 PATCH TD SCH (09:27)
[2021-06-23] MEDS: DICLOFENAC SOD 1% GEL 100 GM TUBE EXT SCH ×4 (09:28→20:50)
[2021-06-23 10:38] LABS: Basophils # (auto) 0.04 K/uL (0-0.2); Basophils % (auto) 1.1 %; Eosinophils # (auto) 0.17 K/uL (0-0.5); Eosinophils % (auto) 4.8 %; Hematocrit (blood only) 41.2 % (42-52); Hemoglobin 14.4 g/dL (14.0-18.0); Lymphocytes # (auto) 1.12 K/uL (1.2-3.4); Lymphocytes % (auto) 31.7 %; Mean Corpuscular Hemoglobin 31.2 pg (25-34); Mean Corpuscular Volume 89.2 fL (80-100); Mean Platelet Volume 10.2 fL (7.4-10.4); Monocytes # (auto) 0.21 K/uL (0.11-0.59); Monocytes % (auto) 5.9 %; Neutrophils # (auto) 1.99 K/uL (1.4-6.5); Neutrophils % (auto) 56.5 %; Platelet Count 230 K/uL (130-400); RDW Coefficient of Variation 14.5 % (11.5-14.5); RDW Standard Deviation 47.2 fL (36.4-46.3); Red Blood Count 4.62 M/uL (4.7-6.1); White Blood Count 3.53 K/uL (4.8-10.8)
[2021-06-23 10:47] LABS: Partial Thromboplastin Ratio 2.3
[2021-06-23 10:53] LABS: Partial Thromboplastin Time 59.6 Seconds (21.0-31.0)
[2021-06-23] MEDS: HEPARIN SODIUM/DEXTROSE 25,000 UNITS/500 ML BAG IV SCH (11:07)
--- NOTE | 2021-06-23 20:01 | Hospitalist Progress Note ---
Date of Service June 23, 2021 Assessment & Plan (1) Pulmonary embolism: Plan: - Maybe contributing to his worsening presentation this week? However has had similar issues in the past with worsening pain and limited movement - CT - RLL pulmonary emboli; no change in aneurysmal dilatation of the ascending thoracic aorta, infrarenal abdominal aorta, and bilateral iliac arteries; healing T12 and L2 mild superior endplate compression fracture - T12 is new compared to last study - CTA - PE partially occlusive in the RLL artery and with partial and total occlusion of multiple segmental arteries on the right. No evidence of R heart strain - Started heparin gtt - may need to sidebar Dr. Davies on Thursday to see if any preference given his planned aneurysm repair which may need to be postponed anyway to favor PE treatment -- Patient is a challenge for anti-coagulation. Even though appearing asymptomatic there are a few PEs which would warrant treatment however high fall risk and has these aneurysms - given age and bleeding risk, utilizing Coumadin would be challenging; NOACs are simple but would need held for a couple days for procedures (if to intervene on aneurysms); could consider Lovenox which I did speak with patient's daughters who has done injections before and could be taught - U/S does not reveal further DVT (2) Dehydration: Plan: - Placed on NSS + KCl 20 mEq at 80 mils per hour x2 L - which has completed (3) Weakness: Plan: - Likely multifactorial: Decreased oral intake, decreased ability of exercise due to arthritis and arterial disease. - He in particular has persistent pain across his lumbar spine spine associated with the L2 compression fracture - also has T12 which is new but shows signs of healing - Back brace has been brought in - PT/OT involved (4) Iliac artery aneurysm, left: Plan: - STABLE - R and L; also has other aneurysms (ascending thoracic and infrarenal) - Patient was to have surgery by Dr. Davies but had to reschedule as daughter was out of town - currently due for Jun and can with Keke to see if this ne eds further pushed - may need to discuss on Thursday - Can also discuss whether beta jose rafael therapy should be initiated. Does occ. have soft BPs so concern for increased falls would need to be considered - Did discuss with Mena on Thursday as need for treat PE - if he does get the aneurysms repaired could consider at that time IVC filter if warranted - no indication for a direct consult from vascular but may be worth further discussion with Dr. Davies on Thursday (5) Iliac artery aneurysm, right: Plan: See above (6) HTN (hypertension): Plan: Continue losartan (7) Compression fracture of L2: Plan: - Lidoderm patches; ALFREDO Tylenol - He may benefit from a consult from pain management as outpatient (8) Decreased oral intake: Plan: Patient has had noticeable weight loss per family. He denies any abdominal pain. - given PEs...underlying malignancy? -- CTA does reveal a thyroid nodule - will check TSH is WNL He reports not having any appetite. Plan: - Maintain pain regimen; determining best anti-coagulation option; planning on SNF - Updated daughter's over the phone today. Please coordinate with Luly. Other daughter lives in [place] but family communicates with each other Admission and Anticipated Discharge Date Admission Date: June 22, 2021 Subjective Reports feeling well today. Intermittent back pain but has been utilizing his brace. He does not remember me telling him about his PEs. He is tolerating a diet and verbalizes no new complaints Review of Systems Review of Systems: REVIEW OF SYSTEMS General/Constitutional: Denies fever/chills Cardiovascular: Denies chest pain, palpitations, edema Respiratory: Denies cough, sputum, SOB, wheezing GI: Denies nausea, vomiting, abdominal pain, constipation, diarrhea : Denies dysuria Musculoskeletal: +intermittent back pain - seems warm blankets do help Neurologic: Denies dizziness/lightheadedness Physical Exam Physical Exam: PHYSICAL EXAM General Appearance: Frail elderly male in NAD who is A&O but forgetful HEENT: Head is normocephalic/atraumatic; Hearing grossly intact; Mucous membranes moist Neck: Supple; Trachea midline; Neg JVD; Neg lymphadenopathy Heart: RRR with no M/G/R Lungs: CTA in all lung cruz bilaterally; Respirations unlabored; Neg accessory muscle use Abdomen: Soft, non-tender, non-distended; Positive BS x 4 quadrants Extremities: Neg cyanosis or edema Neurological: Speech clear; Gross motor/sensory function intact; Neg focal neurologic deficits Psychiatric: Appropriate mood/affect; forgetful Results & Data Results & Data ([facility]) Vital Signs (Past 12 Hours) Vital Signs Temp Pulse Resp BP Pulse Ox 06/23/21 16:00 36.3 C L 80 18 114/64 97 PG Care Time/CCT Total # of Minutes Spent Total Time Spent with Patient: Total time spent is greater than 50% in coordination of care (as documented) at patient's floor/unit and/or counseling patient: Coding Level of Care Code 80808 Subseq Hosp Care Lvl 3 Diagnoses Pulmonary embolism I26.99 Dehydration E86.0 Weakness R53.1 Iliac artery aneurysm, left I72.3 Iliac artery aneurysm, right I72.3 HTN (hypertension) I10 Compression fracture of L2 S32.020A Encounter type: initial encounter Decreased oral intake R63.8 (1) Compression fracture of L2 Encounter type: initial encounter Qualified Code(s): S32.020A - Wedge compression fracture of second lumbar vertebra, initial encounter for closed fracture
[2021-06-24] MEDS: ACETAMINOPHEN 500 MG TAB PO SCH ×3 (07:50→21:31)
[2021-06-24] MEDS: LOSARTAN POTASSIUM 50 MG TAB PO SCH (07:50)
[2021-06-24] MEDS: LIDOCAINE 5% 1 PATCH TD SCH (07:50)
[2021-06-24] MEDS: DICLOFENAC SOD 1% GEL 100 GM TUBE EXT SCH ×4 (07:50→21:31)
[2021-06-24 08:13] LABS: Partial Thromboplastin Ratio 2.2
[2021-06-24 08:23] LABS: Partial Thromboplastin Time 57.1 Seconds (21.0-31.0)
--- NOTE | 2021-06-24 09:54 | Hospitalist Progress Note ---
Date of Service June 24, 2021 Assessment & Plan (1) Pulmonary embolism: Plan: Presented with dehydration/weakness Venous Dopplers NEGATIVE for DVT CT Chest with RLL pulmonary emboli; no change in aneurysmal dilatation of the ascending thoracic aorta, infrarenal abdominal aorta, and bilateral iliac arteries; healing T12 and L2 mild superior endplate compression fracture - T12 is new compared to last study CTA with PE partially occlusive in the RLL artery and with partial and total occlusion of multiple segmental arteries on the right. No evidence of R heart strain Also noted "Diffuse emphysematous changes with pulmonary hypertension". & "Left thyroid nodule. If not previously evaluated, nonemergent thyroid ultrasound can be performed." ECHO with normal LV function, moderate concentric LVH, mild-moderate pericardial effusion without evidence of tamponade --??Starting BB --> will start 12.5mg metoprolol in AM On Heparin gtt currently --> discussed with Vascular and no preference but will need re-eval in office prior to surgery for iliac artery aneurysms (initially scheduled July 01) Discussed with patient's daughter and she is ok with whatever for anticoagulation. Does have frequent falls (also plans for SNF at rehab but anticipate placement will be difficult given current bed situation) --> consider coumadin while inpatient tomorrow vs starting NOAC but will continue current course for now given remains inpatient PT/OT consults for weakness on exam with recs for SNF --> CM following. Refs sent (2) Dehydration: Plan: On admission, and given 2 L NSS + 20K, since resolved and would hold off any further IVF at this time Suspect low Na from slight volume overload as well and would hold off on any further IVF No need for diuretic at this time Monitor volume status BMP in AM (3) Weakness: Plan: - Likely multifactorial: Decreased oral intake, decreased ability of exercise due to arthritis and arterial disease. - He in particular has persistent pain across his lumbar spine spine associated with the L2 compression fracture - also has T12 which is new but shows signs of healing - Back brace has been brought in - PT/OT involved --> Has been utilizing brace on/off --> discussed to wear with activity/up in bed for comfort SNF at d/c per therapy recs (4) Iliac artery aneurysm, left: Plan: - STABLE - R and L; also has other aneurysms (ascending thoracic and infrarenal) - Patient was to have surgery by Dr. Davies but had to reschedule as daughter was out of town - currently due for Jun and can with Keke to see if this needs further pushed --> will need re-eval in office prior to procedure given anticoagulation as above Holding off on BB at this time due to periods of soft BPs/falls but could consider low dose metoprolol tomorrow if BPs continue to be stable (were high on admission 157/91s) Did discuss with Mena on Thursday as need for treat PE - if he does get the aneurysms repaired could consider at that time IVC filter if warranted - no indication for a direct consult from vascular (5) Iliac artery aneurysm, right: Plan: See above (6) HTN (hypertension): Plan: Stable Continue losartan (7) Compression fracture of L2: Plan: - Lidoderm patches; ALFREDO Tylenol - He may benefit from a consult from pain management as outpatient pain reported controlled currently (8) Decreased oral intake: Plan: Patient has had noticeable weight loss per family. He denies any abdominal pain. - given PEs...underlying malignancy? -- CTA does reveal a thyroid nodule - will check TSH --> NORMAL He reports not having any appetite --> improved appetite today and was asking for when lunch would be delivered. ?dietary choices maybe playing role? Continue to monitor Plan: - Maintain pain regimen; determining best anti-coagulation option --> possible switch to bridging vs NOAC tonight planning on SNF at d/c, CM following - Updated daughter's (LITTLE) 06/24 and she will coordinate with other family members Admission and Anticipated Discharge Date Admission Date: June 22, 2021 Supervising Physician Co-Signing Physician Notes Attending Attestation - Chart reviewed in detail, care plan d/w FELIPE Hari. I agree w/ the gutierrez components of her documentation. Herminio Houston MD Subjective Patient evaluated around lunch time. Doing well Pain controlled with ordered medications but sometimes when he moves he does get low back pain. Wearing brace at times but not at others -- he is unsure when he should be wearing this. Discussed when up and around but can remove when in bed. Legs were too weak to work with therapy yesterday but he thinks someone will be around today. Unsure what decisions were made about anticoagulation but would like me to talk with daughter/ and coordinate care and he states "I'm ok with whatever they decide, they are the boss". No fever, chills, chest pain , shortness of breath, abdominal pain, nausea or vomiting. Good appetite and wondering when lunch is coming around. Updated daughter on phone this afternoon. No preference on anticoagulation and discussed patient will need re-eval in office with Dr. Davies prior to aneurysm repair but that they also do not have a preference. Referrals placed for rehab and discussed patient may remain inpatient couple of days depending on bed availability but will continue to monitor. Review of Systems Review of Systems: All systems reviewed & are unremarkable except as noted in HPI & below Physical Exam Physical Exam: PHYSICAL EXAM General: Frail elderly male in NAD who is A&O but forgetful at times and would like family called with any planning as "they are the boss" HEENT: Head is normocephalic/atraumatic; Hearing grossly intact; Mucous membranes moist Neck: Supple; Trachea midline; Neg JVD; Neg lymphadenopathy Heart: RRR with no M/G/R Lungs: CTAB, no cough, not tachypneic, 96% on ROOM AIR. Abd: +BS throughout, soft, non-tender to palpation Extremities: Neg cyanosis or edema Neurological: Speech clear; Gross motor/sensory function intact; Neg focal neurologic deficits Psychiatric: Appropriate mood/affect; forgetful Results & Data Results & Data ([facility]) Vital Signs (Past 12 Hours) Vital Signs Temp Pulse Resp BP Pulse Ox 06/24/21 07:59 36.7 C 67 16 136/76 96 06/23/21 22:46 36.5 C 75 20 136/76 95 Laboratory Results 06/24/21 06/24/21 Range/Units 07:31 07:30 APTT 57.1 H* (21.0-31.0) Seconds PTT Ratio 2.2 Sodium 130 L (136-145) mmol/L Potassium 3.8 (3.5-5.1) mmol/L Chloride 101 (98-107) mmol/L Carbon Dioxide 27 (21-32) mmol/L Anion Gap 2.0 L (3-11) BUN 13 D (7-18) mg/dl Creatinine 0.80 (0.6-1.4) mg/dl Est Cr Clr Drug Dosing 74.3 ml/min Est GFR ( Amer) 93.8 ml/min Est GFR (Non-Af Amer) 80.9 ml/min BUN/Creatinine Ratio 15.9 (10-20) Glucose 85 (70-99) mg/dl Calcium 8.6 (8.5-10.1) mg/dl Total Bilirubin 0.5 (0.2-1) mg/dl AST 20 (15-37) U/L ALT 12 (12-78) U/L Alkaline Phosphatase 82 (45-117) U/L Total Protein 5.7 L (6.4-8.2) gm/dl Albumin 2.4 L (3.4-5.0) gm/dl Globulin 3.3 (2.5-4.0) gm/dl Albumin/Globulin Ratio 0.7 L (0.9-2) PG Care Time/CCT Total # of Minutes Spent Total Time Spent with Patient: Total time spent is greater than 50% in coordination of care (as documented) at patient's floor/unit and/or counseling patient: Coding Level of Care Code 38744 Subseq Hosp Care Lvl 2 Diagnoses Pulmonary embolism I26.99 Dehydration E86.0 Weakness R53.1 Iliac artery aneurysm, left I72.3 Iliac artery aneurysm, right I72.3 HTN (hypertension) I10 Compression fracture of L2 S32.020A Encounter type: initial encounter Decreased oral intake R63.8 (1) Compression fracture of L2 Encounter type: initial encounter Qualified Code(s): S32.020A - Wedge compression fracture of second lumbar vertebra, initial encounter for closed fracture
[2021-06-24 10:11] LABS: Albumin Level 2.4 gm/dl (3.4-5.0); BUN Creatinine Ratio 15.9 (10-20); Calcium 8.6 mg/dl (8.5-10.1); Creatinine Clr Calc Pharmacy 74.3 ml/min; Est GFR (African American) 93.8 ml/min; Est GFR (Non-African American) 80.9 ml/min; Potassium 3.8 mmol/L (3.5-5.1)
[2021-06-24 10:14] LABS: Albumin Globulin Ratio 0.7 (0.9-2); Bilirubin,Total 0.5 mg/dl (0.2-1); Globulin 3.3 gm/dl (2.5-4.0); Total Protein 5.7 gm/dl (6.4-8.2)
--- NOTE | 2021-06-24 14:22 | XCELERA ---
[id number]
[2021-06-24] MEDS: HEPARIN SODIUM/DEXTROSE 25,000 UNITS/500 ML BAG IV SCH (14:44)
[2021-06-24] MEDS: RIVAROXABAN 15 MG TAB PO SCH (21:29)
[2021-06-25 06:58] LABS: Basophils # (auto) 0.03 K/uL (0-0.2); Basophils % (auto) 0.7 %; Eosinophils # (auto) 0.18 K/uL (0-0.5); Eosinophils % (auto) 4.4 %; Hematocrit (blood only) 34.5 % (42-52); Hemoglobin 12.1 g/dL (14.0-18.0); Lymphocytes # (auto) 1.36 K/uL (1.2-3.4); Mean Corpuscular Hemoglobin 30.7 pg (25-34); Mean Corpuscular Hgb Conc 35.1 g/dL (32-36); Mean Corpuscular Volume 87.6 fL (80-100); Mean Platelet Volume 9.8 fL (7.4-10.4); Monocytes # (auto) 0.48 K/uL (0.11-0.59); Monocytes % (auto) 11.7 %; Neutrophils # (auto) 2.07 K/uL (1.4-6.5); Neutrophils % (auto) 50.2 %; Platelet Count 195 K/uL (130-400); RDW Coefficient of Variation 14.7 % (11.5-14.5); RDW Standard Deviation 47.6 fL (36.4-46.3); Red Blood Count 3.94 M/uL (4.7-6.1); White Blood Count 4.12 K/uL (4.8-10.8)
[2021-06-25 07:03] LABS: Partial Thromboplastin Ratio 1.6; Partial Thromboplastin Time 42.7 Seconds (21.0-31.0)
[2021-06-25 07:28] LABS: Calcium 8.8 mg/dl (8.5-10.1); Creatinine Clr Calc Pharmacy 88.7 ml/min; Est GFR (African American) 100.8 ml/min; Potassium 3.8 mmol/L (3.5-5.1)
[2021-06-25] MEDS: DICLOFENAC SOD 1% GEL 100 GM TUBE EXT SCH ×4 (07:51→20:14)
[2021-06-25] MEDS: LIDOCAINE 5% 1 PATCH TD SCH (07:51)
[2021-06-25] MEDS: ACETAMINOPHEN 500 MG TAB PO SCH ×3 (07:56→20:15)
[2021-06-25] MEDS: RIVAROXABAN 15 MG TAB PO SCH ×2 (07:56→20:15)
[2021-06-25] MEDS: LOSARTAN POTASSIUM 50 MG TAB PO SCH (07:56)
[2021-06-25] MEDS ORDERED: METOPROLOL SUCC 25MG EXT REL TAB PO SCH (09:00)
--- NOTE | 2021-06-25 09:08 | Hospitalist Progress Note ---
Date of Service June 25, 2021 Assessment & Plan (1) Pulmonary embolism: Plan: Presented with dehydration/weakness Venous Dopplers NEGATIVE for DVT CT Chest with RLL pulmonary emboli; no change in aneurysmal dilatation of the ascending thoracic aorta, infrarenal abdominal aorta, and bilateral iliac arteries; healing T12 and L2 mild superior endplate compression fracture - T12 is new compared to last study CTA with PE partially occlusive in the RLL artery and with partial and total occlusion of multiple segmental arteries on the right. No evidence of R heart strain Also noted "Diffuse emphysematous changes with pulmonary hypertension". & "Left thyroid nodule. If not previously evaluated, nonemergent thyroid ultrasound can be performed." ECHO with normal LV function, moderate concentric LVH, mild-moderate pericardial effusion without evidence of tamponade Started metoprolol 12.5mg daily Heparin --> Xarelto last evening 06/24 and will need to continue BID for 20 days then switch to 20mg daily PT/OT consults for weakness on exam with recs for SNF --> CM following. Refs sent. (2) Dehydration: Plan: On admission, and given 2 L NSS + 20K, since resolved and would hold off any fur ther IVF at this time Suspect low Na from slight volume overload as well and would hold off on any further IVF No need for diuretic at this time Na improved to 133 Improved appetite BMP in AM (3) Weakness: Plan: - Likely multifactorial: Decreased oral intake, decreased ability of exercise due to arthritis and arterial disease. - He in particular has persistent pain across his lumbar spine spine associated with the L2 compression fracture - also has T12 which is new but shows signs of healing - Back brace has been brought in - PT/OT involved --> Has been utilizing brace on/off --> discussed to wear with activity/up in bed for comfort SNF at d/c per therapy recs (4) Iliac artery aneurysm, left: Plan: STABLE - R and L; also has other aneurysms (ascending thoracic and infrarenal) Patient was to have surgery by Dr. Davies but had to reschedule as daughter was out of town - currently due for Jun and can with Keke to see if this needs further pushed --> will need re-eval in office prior to procedure given anticoagulation as above Holding off on BB at this time due to periods of soft BPs/falls but could consider low dose metoprolol tomorrow if BPs continue to be stable (were high on admission 157/91s) Did discuss with Mena on Thursday as need for treat PE - if he does get the aneurysms repaired could consider at that time IVC filter if warranted - no indication for a direct consult from vascular Xarelto as above and will need seen by vascular prior to surgery (5) Iliac artery aneurysm, right: Plan: See above (6) HTN (hypertension): Plan: Stable Continue losartan--> decrease losartan to 25mg daily given borderline low BP this afternoon to prevent falls as started low dose BB 12.5mg daily Continue to monitor (7) Compression fracture of L2: Plan: - Lidoderm patches; ALFREDO Tylenol brace from orthotics - He may benefit from a consult from pain management as outpatient --> pain reported controlled currently (8) Decreased oral intake: Plan: Patient has had noticeable weight loss per family. He denies any abdominal pain. - given PEs...underlying malignancy? -- CTA does reveal a thyroid nodule - will check TSH --> NORMAL He reports not having any appetite --> improved appetite today and was asking for when lunch would be delivered. ?dietary choices maybe playing role? IMPROVED APPETITE Continue to monitor Plan: Continued inpatient stay Looking into rehab -- beds tight. [facility] preference, [facility] the [facility] agreeable to ref to [facility]. Admission and Anticipated Discharge Date Admission Date: June 22, 2021 Supervising Physician Co-Signing Physician Notes Attending Attestation - Chart reviewed in detail, care plan d/w FELIPE Hair. I agree w/ the gutierrez components of her documentation. Xarelto has been chosen for anticoagulation for VTE Rx. Noted the plan for iliac artery aneurysms. Herminio Houston MD Subjective Patient seen this afternoon. Feeling well. Pain controlled No shortness of breath or chest pain, No bleeding from gums, urine or bowel. Eating better. Had 2 BMs. Switched to Xarelto last evening and plans to continue at d/c and will update daughter Luly as requested this evening. Awaiting bed and CM following. Daughter to visit [place] as well. Review of Systems Review of Systems: All systems reviewed & are unremarkable except as noted in HPI & below Physical Exam Physical Exam: PHYSICAL EXAM General: Frail elderly male in NAD who is A&O but forgetful at times and would like family called with any planning as "they are the boss" HEENT: Head is normocephalic/atraumatic; Hearing grossly intact; Mucous membranes moist Neck: Supple; Trachea midline; Neg JVD; Neg lymphadenopathy Heart: RRR with no M/G/R Lungs: CTAB, no cough, not tachypneic, 96% on ROOM AIR. Abd: +BS throughout, soft, non-tender to palpation Extremities: Neg cyanosis or edema Neurological: Speech clear; Gross motor/sensory function intact; Neg focal neurologic deficits Psychiatric: Appropriate mood/affect; forgetful Results & Data Results & Data ([facility]) Vital Signs (Past 12 Hours) Vital Signs Temp Pulse Resp BP Pulse Ox 06/25/21 07:47 36.7 C 76 18 133/76 93 06/24/21 23:30 36.9 C 70 20 114/59 L 94 Laboratory Results 06/25/21 06/25/21 06/25/21 Range/Units 06:09 06:09 06:09 WBC 4.12 L (4.8-10.8) K/uL RBC 3.94 L (4.7-6.1) M/uL Hgb 12.1 L (14.0-18.0) g/dL Hct 34.5 L (42-52) % MCV 87.6 (80-100) fL MCH 30.7 (25-34) pg MCHC 35.1 (32-36) g/dL RDW Std Deviation 47.6 H (36.4-46.3) fL RDW Coeff of Ana 14.7 H (11.5-14.5) % Plt Count 195 (130-400) K/uL MPV 9.8 (7.4-10.4) fL Immature Gran % (Auto) 0.0 % Neut % (Auto) 50.2 % Lymph % (Auto) 33.0 % [place] % (Auto) 11.7 % Eos % (Auto) 4.4 % Baso % (Auto) 0.7 % Neut # (Auto) 2.07 (1.4-6.5) K/uL Lymph # (Auto) 1.36 (1.2-3.4) K/uL [place] # (Auto) 0.48 (0.11-0.59) K/uL Eos # (Auto) 0.18 (0-0.5) K/uL Baso # (Auto) 0.03 (0-0.2) K/uL Immature Gran # (Auto) 0.00 (0.00-0.02) K/uL APTT 42.7 H (21.0-31.0) Seconds PTT Ratio 1.6 Sodium 133 L (136-145) mmol/L Potassium 3.8 (3.5-5.1) mmol/L Chloride 101 (98-107) mmol/L Carbon Dioxide 23 (21-32) mmol/L Anion Gap 9.0 (3-11) BUN 14 (7-18) mg/dl Creatinine 0.67 (0.6-1.4) mg/dl Est Cr Clr Drug Dosing 88.7 ml/min Est GFR ( Amer) 100.8 ml/min Est GFR (Non-Af Amer) 87.0 ml/min BUN/Creatinine Ratio 20.0 (10-20) Glucose 83 (70-99) mg/dl Calcium 8.8 (8.5-10.1) mg/dl Total Bilirubin (0.2-1) mg/dl AST (15-37) U/L ALT (12-78) U/L Alkaline Phosphatase (45-117) U/L Total Protein (6.4-8.2) gm/dl Albumin (3.4-5.0) gm/dl Globulin (2.5-4.0) gm/dl Albumin/Globulin Ratio (0.9-2) 06/24/21 Range/Units 07:31 WBC (4.8-10.8) K/uL RBC (4.7-6.1) M/uL Hgb (14.0-18.0) g/dL Hct (42-52) % MCV (80-100) fL MCH (25-34) pg MCHC (32-36) g/dL RDW Std Deviation (36.4-46.3) fL RDW Coeff of Ana (11.5-14.5) % Plt Count (130-400) K/uL MPV (7.4-10.4) fL Immature Gran % (Auto) % Neut % (Auto) % Lymph % (Auto) % [place] % (Auto) % Eos % (Auto) % Baso % (Auto) % Neut # (Auto) (1.4-6.5) K/uL Lymph # (Auto) (1.2-3.4) K/uL [place] # (Auto) (0.11-0.59) K/uL Eos # (Auto) (0-0.5) K/uL Baso # (Auto) (0-0.2) K/uL Immature Gran # (Auto) (0.00-0.02) K/uL APTT (21.0-31.0) Seconds PTT Ratio Sodium 130 L (136-145) mmol/L Potassium 3.8 (3.5-5.1) mmol/L Chloride 101 (98-107) mmol/L Carbon Dioxide 27 (21-32) mmol/L Anion Gap 2.0 L (3-11) BUN 13 D (7-18) mg/dl Creatinine 0.80 (0.6-1.4) mg/dl Est Cr Clr Drug Dosing 74.3 ml/min Est GFR ( Amer) 93.8 ml/min Est GFR (Non-Af Amer) 80.9 ml/min BUN/Creatinine Ratio 15.9 (10-20) Glucose 85 (70-99) mg/dl Calcium 8.6 (8.5-10.1) mg/dl Total Bilirubin 0.5 (0.2-1) mg/dl AST 20 (15-37) U/L ALT 12 (12-78) U/L Alkaline Phosphatase 82 (45-117) U/L Total Protein 5.7 L (6.4-8.2) gm/dl Albumin 2.4 L (3.4-5.0) gm/dl Globulin 3.3 (2.5-4.0) gm/dl Albumin/Globulin Ratio 0.7 L (0.9-2) PG Care Time/CCT Total # of Minutes Spent Total Time Spent with Patient: Total time spent is greater than 50% in coordination of care (as documented) at patient's floor/unit and/or counseling patient: Coding Level of Care Code 92834 Subseq Hosp Care Lvl 2 Diagnoses Pulmonary embolism I26.99 Dehydration E86.0 Weakness R53.1 Iliac artery aneurysm, left I72.3 Iliac artery aneurysm, right I72.3 HTN (hypertension) I10 Compression fracture of L2 S32.020A Encounter type: initial encounter Decreased oral intake R63.8 (1) Compression fracture of L2 Encounter type: initial encounter Qualified Code(s): S32.020A - Wedge compression fracture of second lumbar vertebra, initial encounter for closed fracture
[2021-06-25 10:27] LABS: Lyme Ab IgG w/WB Rflx Negative (Negative); Lyme Ab IgM w/WB Rflx Negative (Negative)
[2021-06-26 07:36] LABS: Partial Thromboplastin Ratio 1.9
[2021-06-26 07:43] LABS: Partial Thromboplastin Time 50.6 Seconds (21.0-31.0)
[2021-06-26] MEDS: ACETAMINOPHEN 500 MG TAB PO SCH ×3 (08:10→21:47)
[2021-06-26] MEDS: DICLOFENAC SOD 1% GEL 100 GM TUBE EXT SCH ×4 (08:10→21:46)
[2021-06-26] MEDS: LIDOCAINE 5% 1 PATCH TD SCH (08:11)
[2021-06-26] MEDS: LOSARTAN POTASSIUM 25 MG TAB PO SCH (08:14)
[2021-06-26] MEDS: RIVAROXABAN 15 MG TAB PO SCH ×3 (08:17→21:48)
--- NOTE | 2021-06-26 08:34 | Hospitalist Progress Note ---
Date of Service June 26, 2021 Assessment & Plan (1) Pulmonary embolism: Plan: Presented with dehydration/weakness Venous Dopplers NEGATIVE for DVT CT Chest with RLL pulmonary emboli; no change in aneurysmal dilatation of the ascending thoracic aorta, infrarenal abdominal aorta, and bilateral iliac arteries; healing T12 and L2 mild superior endplate compression fracture - T12 is new compared to last study CTA with PE partially occlusive in the RLL artery and with partial and total occlusion of multiple segmental arteries on the right. No evidence of R heart strain Also noted "Diffuse emphysematous changes with pulmonary hypertension". & "Left thyroid nodule. If not previously evaluated, nonemergent thyroid ultrasound can be performed." ECHO with normal LV function, moderate concentric LVH, mild-moderate pericardial effusion without evidence of tamponade Heparin --> Xarelto evening 06/24 and will need to continue BID for 20 days then switch to 20mg daily Started metoprolol 12.5mg daily --> holding given lower BPs. Repeat limited ECHO today with almost complete resolution of pericardial effusion ?? No shortness of breath, not hypotensive. On room air with SpO2 96% PT/OT consults for weakness on exam with recs for SNF --> CM following. Refs sent. (2) Dehydration: Plan: On admission, and given 2 L NSS + 20K, since resolved and would hold off any further IVF at this time Suspect low Na from slight volume overload as well and would hold off on any further IVF No need for diuretic at this time Na improved to 133 but remains 133 on repeat TSH 0.9 wnl Improved appetite BMP in AM (3) Weakness: Plan: Likely multifactorial: Decreased oral intake, decreased ability of exercise due to arthritis and arterial disease, PEs as above, as well as iliac art aneursyms as below. He in particular has persistent pain across his lumbar spine spine associated with the L2 compression fracture - also has T12 which is new but shows signs of healing Back brace has been brought in - PT/OT involved -> Has been utilizing brace on/off --> discussed to wear with activity/up in bed for comfort. DENIES ANY PAIN TODAY --> wonder if as PEs treated pain subsiding Will also check B12 in AM UA without evidence of infection PT/OT --> SNF at d/c per therapy recs (4) Iliac artery aneurysm, left: Plan: STABLE - R and L; also has other aneurysms (ascending thoracic and infrarenal) Patient was to have surgery by Dr. Davies but had to reschedule as daughter was out of town - currently due for Jun and can with Keke to see if this needs further pushed --> will need re-eval in office prior to procedure given anticoagulation as above Holding off on BB at this time due to periods of soft BPs/falls but could consider low dose metoprolol tomorrow if BPs continue to be stable (were high on admission 157/91s) Did discuss with Mena on Thursday as need for treat PE - if he does get the aneurysms repaired could consider at that time IVC filter if warranted - no indication for a direct consult from vascular [place] as above and will need seen by vascular prior to surgery and will set up appt at d/c (5) Iliac artery aneurysm, right: Plan: See above (6) HTN (hypertension): Plan: Stable Continue losartan--> decreased losartan to 25mg on 06/25 given borderline low BP to prevent falls as started low dose BB 12.5mg daily as above (BB on hold) BP currently 124/75 and will continue decreased losartan dose as above Continue to monitor (7) Compression fracture of L2: Plan: - Lidoderm patches; ALFREDO Tylenol brace from orthotics - He may benefit from a consult from pain management as outpatient --> pain reported controlled currently (8) Decreased oral intake: Plan: Patient has had noticeable weight loss per family. He denies any abdominal pain. - given PEs...underlying malignancy? -- CTA does reveal a thyroid nodule - will check TSH --> NORMAL He reports not having any appetite --> improved appetite today and was asking for when lunch would be delivered. ?dietary choices maybe playing role? IMPROVED APPETITE -- asked for 2nd tray today for breakfast Continue to monitor Updated daughter Luly evening 06/25. Will update again tomorrow or sooner if any questions/concerns Plan: Continued inpatient stay Looking into rehab -- beds tight. [facility]rade, [facility]on [facility] Care Admission and Anticipated Discharge Date Admission Date: June 22, 2021 Supervising Physician Co-Signing Physician Notes Attending Attestation - Chart reviewed in detail, care plan d/w FELIPE Hair. I agree w/ the gutierrez components of her documentation. Xarelto has been chosen for anticoagulation for VTE Rx. Noted the plan for iliac artery aneurysms. Awaiting SNF placement. Herminio Houston MD Subjective Seen around 11am. Sleeping in room but easily awoken. Ate 2 pancakes this AM for breakfast. Eating/drinking better with better appetite. Urinal at bedside with yellow clear urine. Denies any chest pain or shortness of breath. States back pain currently not present any longer. Discussed awaiting bed at rehab currently and will keep daughter Luly updated daily. He notes she said she had spoken to someone yesterday. Agrees with plan. No chest pain, shortness of breath, abd pain, n/v or dysuria at this time. Review of Systems Review of Systems: All systems reviewed & are unremarkable except as noted in HPI & below Physical Exam Physical Exam: PHYSICAL EXAM General: Frail elderly male in NAD who is A&O to person/place but forgetful at times HEENT: Head is normocephalic/atraumatic; Hearing grossly intact; Mucous membranes moist Neck: Supple; Trachea midline; Neg JVD; Neg lymphadenopathy Heart: RRR with no M/G/R Lungs: CTAB, no cough, not tachypneic, 96% on ROOM AIR. Abd: +BS throughout, soft, non-tender to palpation Extremities: Neg cyanosis or edema Neurological: Speech clear; Gross motor/sensory function intact; Neg focal neurologic deficits Psychiatric: Appropriate mood/affect; forgetful Results & Data Results & Data ([facility]) Vital Signs (Past 12 Hours) Vital Signs Temp Pulse Pulse Resp BP Pulse Ox 06/26/21 07:30 36.9 C 74 16 122/74 95 06/25/21 23:18 36.9 C 76 18 109/71 92 Laboratory Results 06/26/21 06/25/21 Range/Units 06:27 09:11 APTT 50.6 H* (21.0-31.0) Seconds PTT Ratio 1.9 Lyme Disease IgG Ab Negative (Negative) Lyme Disease IgM Ab Negative (Negative) PG Care Time/CCT Total # of Minutes Spent Total Time Spent with Patient: Total time spent is greater than 50% in coordination of care (as documented) at patient's floor/unit and/or counseling patient: Coding Level of Care Code 91571 Subseq Hosp Care Lvl 2 Diagnoses Pulmonary embolism I26.99 Dehydration E86.0 Weakness R53.1 Iliac artery aneurysm, left I72.3 Iliac artery aneurysm, right I72.3 HTN (hypertension) I10 Compression fracture of L2 S32.020A Encounter type: initial encounter Decreased oral intake R63.8 (1) Compression fracture of L2 Encounter type: initial encounter Qualified Code(s): S32.020A - Wedge compression fracture of second lumbar vertebra, initial encounter for closed fracture
[2021-06-26 08:52] LABS: Hematocrit (blood only) 34.8 % (42-52); Hemoglobin 11.9 g/dL (14.0-18.0); Mean Corpuscular Hemoglobin 30.7 pg (25-34); Mean Corpuscular Hgb Conc 34.2 g/dL (32-36); Mean Corpuscular Volume 89.9 fL (80-100); Mean Platelet Volume 10.3 fL (7.4-10.4); Platelet Count 186 K/uL (130-400); RDW Coefficient of Variation 14.9 % (11.5-14.5); RDW Standard Deviation 48.8 fL (36.4-46.3); Red Blood Count 3.87 M/uL (4.7-6.1); White Blood Count 5.26 K/uL (4.8-10.8)
[2021-06-26 09:07] LABS: BUN Creatinine Ratio 17.4 (10-20); Calcium 8.6 mg/dl (8.5-10.1); Creatinine Clr Calc Pharmacy 84.9 ml/min; Est GFR (Non-African American) 85.5 ml/min
--- NOTE | 2021-06-26 13:35 | XCELERA ---
[id number]
[2021-06-27 06:07] LABS: Basophils # (auto) 0.02 K/uL (0-0.2); Basophils % (auto) 0.5 %; Eosinophils # (auto) 0.35 K/uL (0-0.5); Eosinophils % (auto) 8.2 %; Hematocrit (blood only) 33.2 % (42-52); Hemoglobin 11.7 g/dL (14.0-18.0); Immature Granulocytes # (auto) 0.01 K/uL (0.00-0.02); Immature Granulocytes % (auto) 0.2 %; Lymphocytes # (auto) 0.98 K/uL (1.2-3.4); Lymphocytes % (auto) 22.9 %; Mean Corpuscular Hemoglobin 31.2 pg (25-34); Mean Corpuscular Hgb Conc 35.2 g/dL (32-36); Mean Corpuscular Volume 88.5 fL (80-100); Mean Platelet Volume 9.3 fL (7.4-10.4); Monocytes # (auto) 0.41 K/uL (0.11-0.59); Monocytes % (auto) 9.6 %; Neutrophils # (auto) 2.51 K/uL (1.4-6.5); Neutrophils % (auto) 58.6 %; Platelet Count 176 K/uL (130-400); RDW Coefficient of Variation 15.1 % (11.5-14.5); RDW Standard Deviation 49.1 fL (36.4-46.3); Red Blood Count 3.75 M/uL (4.7-6.1); White Blood Count 4.28 K/uL (4.8-10.8)
[2021-06-27 06:46] LABS: BUN Creatinine Ratio 18.3 (10-20); Calcium 8.5 mg/dl (8.5-10.1); Creatinine Clr Calc Pharmacy 83.7 ml/min; Est GFR (African American) 98.5 ml/min; Potassium 3.9 mmol/L (3.5-5.1)
[2021-06-27 06:55] LABS: Partial Thromboplastin Time 51.4 Seconds (21.0-31.0)
--- NOTE | 2021-06-27 07:26 | Ultrasound Report ---
ULTRASOUND SOFT TISSUE HEAD AND NECK. INDICATION: MN ^eval nodule in patient with PEs, ?malignancy. TECHNIQUE: Multiple real time sonographic images of the thyroid were obtained. Comparison: None available at the time of this dictation. FINDINGS: The right thyroid lobe measures 2.4 x 5.3 x 2.1 cm. The left thyroid lobe measures approxim ately 1.8 x 4.4 x 2.4 cm. The isthmus measures 0.4 cm. The bilateral thyroid is diffusely heterogeneo us in echotexture. #Nodule 1. LOCATION: Left midpole. Measurement: 1.9 x 1.6 x 1.6 cm. COMPOSITION: 2 points: Solid or almost completely solid. ECHOGENICITY: 2 points: Hypoechoic. SHAPE: 0 point: [id number]-aeeg. MARGIN: 0 points: Smooth or Ill-defined. ECHOGENIC FOCI: 0 points: None or large comet-tail artifacts. Overall TI-RADS Score: 4, corresponding to TI-RADS category of 4/5. #Nodule 2. LOCATION: Left upper pole. Measurement: 1.2 x 1.0 x 0.9 cm. COMPOSITION: 2 points: Solid or almost completely solid. ECHOGENICITY: 1 point: Hyperechoic or isoechoic. SHAPE: 0 point: Smftp-bzhm-frgr. MARGIN: 0 points: Smooth or Ill-defined. ECHOGENIC FOCI: 1 point: Macrocalcifications. Overall TI-RADS Score: 4, corresponding to TI-RADS category of 4/5. IMPRESSION: 2 thyroid nodules as above. The left mid pole lesion meets criteria for fine needle aspiration by ACR criteria. The upper pole lesion meets criteria for continued annual follow-up. 0 points = TR 1, benign 2 points= TR 2, not suspicious 3 points= TR 3, mildly suspicious. > 1.5 cm- follow year 1, 3, 5 years. > 2.5 cm- FNA 4-6 points= TR 4, moderately suspicious. > 1 cm- follow year 1, 2, 3, 5 years. >1.5 cm- FNA 7 or more points= TR 5, highly suspicious. > 0.5 cm- follow yearly x 5 years. > 1 cm- FNA ACT 112: Negative or not required by law. Electronically signed by: Corey Alfaro M.D. 06/27/2021 7:25 AM
[2021-06-27 09:01] LABS: Ferritin 345.5 ng/ml (8-388)
[2021-06-27] MEDS: ACETAMINOPHEN 500 MG TAB PO SCH ×3 (09:02→20:16)
[2021-06-27] MEDS: LIDOCAINE 5% 1 PATCH TD SCH (09:02)
[2021-06-27] MEDS: DICLOFENAC SOD 1% GEL 100 GM TUBE EXT SCH ×4 (09:02→19:36)
[2021-06-27] MEDS: LOSARTAN POTASSIUM 25 MG TAB PO SCH (09:02)
[2021-06-27] MEDS: RIVAROXABAN 15 MG TAB PO SCH ×2 (09:02→20:16)
--- NOTE | 2021-06-27 09:06 | Hospitalist Progress Note ---
Date of Service June 27, 2021 Assessment & Plan (1) Pulmonary embolism: Plan: Presented with dehydration/weakness Venous Dopplers NEGATIVE for DVT CT Chest with RLL pulmonary emboli; no change in aneurysmal dilatation of the ascending thoracic aorta, infrarenal abdominal aorta, and bilateral iliac arteries; healing T12 and L2 mild superior endplate compression fracture - T12 is new compared to last study CTA with PE partially occlusive in the RLL artery and with partial and total occlusion of multiple segmental arteries on the right. No evidence of R heart strain Also noted "Diffuse emphysematous changes with pulmonary hypertension". & "Left thyroid nodule. If not previously evaluated, nonemergent thyroid ultrasound can be performed." (see below) ECHO with normal LV function, moderate concentric LVH, mild-moderate pericardial effusion without evidence of tamponade Heparin --> Xarelto evening 06/24 and will need to continue BID for 20 days then switch to 20mg daily Started metoprolol 12.5mg daily --> holding given lower BPs. Repeat limited ECHO with almost complete resolution of pericardial effusion ?? unclear etiology unless some bleeding then absorbed? No shortness of breath, not hypotensive. On room air with SpO2 96% --> Given anemia, iron checked -- low at 30 and Venofer ordered for today and will repeat. Trans % sat 15. PT/OT consults for weakness on exam with recs for SNF --> CM following. Refs sent. (2) Dehydration: Plan: On admission, and given 2 L NSS + 20K, since resolved and would hold off any further IVF at this time Suspect low Na from slight volume overload as well and would hold off on any further IVF No need for diuretic at this time Na improved to 133 but remains 132 on repeat and getting IV venofer. Will given 20 mg PO lasix to see if helps as has been eating most of trays and requested 2nd tray yetserday TSH 0.9 wnl Improved appetite BMP in AM (3) Weakness: Plan: Likely multifactorial: Decreased oral intake, decreased ability of exercise due to arthritis and arterial disease, PEs as above, as well as iliac art aneursyms as below. He in particular has persistent pain across his lumbar spine spine associated with the L2 compression fracture - also has T12 which is new but shows signs of healing Back brace has been brought in - PT/OT involved -> Has been utilizing brace on/off --> discussed to wear with activity/up in bed for comfort. CONTINUED TO DENIES ANY PAIN TODAY --> wonder if as PEs treated pain subsiding Will also check B12 in AM --> borderline low and started replacement which will hopefully help w balance/stability. Also replacement of iron as above. Unsure last c-scope will need to look into further UA without evidence of infection PT/OT --> SNF at d/c per therapy recs (4) Iliac artery aneurysm, left: Plan: STABLE - R and L; also has other aneurysms (ascending thoracic and infrarenal) Patient was to have surgery by Dr. Davies but had to reschedule as daughter was out of town - currently due for Jun and can with Keke to see if this needs further pushed --> will need re-eval in office prior to procedure given anticoagulation as above Holding off on BB at this time due to periods of soft BPs/falls but could consider low dose metoprolol tomorrow if BPs continue to be stable (were high on admission 157/91s) Did discuss with Mena on Thursday as need for treat PE - if he does get the aneurysms repaired could consider at that time IVC filter if warranted - no indication for a direct consult from vascular Xarelto as above and will need seen by vascular prior to surgery and will set up appt at d/c (5) Iliac artery aneurysm, right: Plan: See above (6) HTN (hypertension): Plan: Stable Continue losartan--> decreased losartan to 25mg on 06/25 given borderline low BP to prevent falls as started low dose BB 12.5mg daily as above (BB on hold) BP currently 154/82 and will continue decreased losartan dose as above as giving dose of lasix as above Continue to monitor/adj as needed (7) Compression fracture of L2: Plan: - Lidoderm patches; ALFREDO Tylenol brace from orthotics - He may benefit from a consult from pain management as outpatient --> pain reported controlled currently (NONE) (8) Decreased oral intake: Plan: Patient has had noticeable weight loss per family. He denies any abdominal pain. - given PEs...underlying malignancy? -- CTA does reveal a thyroid nodule - will check TSH --> NORMAL He reports not having any appetite --> improved appetite today and was asking for when lunch would be delivered. ?dietary choices maybe playing role? IMPROVED APPETITE Continue to monitor Updated daughter Luly evening 06/25. CM following. Also w thyroid nodule on imaging CT , US done last evening which shows L nodule need for FNA- see below (9) Thyroid nodule: Plan: seen on CT and appreciated on exam today Report FINDINGS: The right thyroid lobe measures 2.4 x 5.3 x 2.1 cm. The left thyroid lobe measures approximately 1.8 x 4.4 x 2.4 cm. The isthmus measures 0.4 cm. The bilateral thyroid is diffusely heterogeneous in echotexture. #Nodule 1. LOCATION: Left midpole. Measurement: 1.9 x 1.6 x 1.6 cm. COMPOSITION: 2 points: Solid or almost completely solid. ECHOGENICITY: 2 points: Hypoechoic. SHAPE: 0 point: [id number]. MARGIN: 0 points: Smooth or Ill-defined. ECHOGENIC FOCI: 0 points: None or large comet-tail artifacts. Overall TI-RADS Score: 4, corresponding to TI-RADS category of 4/5. #Nodule 2. LOCATION: Left upper pole. Measurement: 1.2 x 1.0 x 0.9 cm. COMPOSITION: 2 points: Solid or almost completely solid. ECHOGENICITY: 1 point: Hyperechoic or isoechoic. SHAPE: 0 point: [id number]. MARGIN: 0 points: Smooth or Ill-defined. ECHOGENIC FOCI: 1 point: Macrocalcifications. Overall TI-RADS Score: 4, corresponding to TI-RADS category of 4/5. IMPRESSION: 2 thyroid nodules as above. The left mid pole lesion meets criteria for fine needle aspiration by ACR criteria. The upper pole lesion meets criteria for continued annual follow-up. Discussed and endocrine not until 2021--> seeing about getting in with ENT Dr Bearden for FNA. Relayed info to family by CM for f/u regarding this (10) Anemia: Plan: Normocytic Hgb 11.7 -- no signs of hematuria -- urine clear in urinal at bedside moving bowels and per RN no blood noted Iron studies --> LOW iron 32, transferrin 147 and trans % sat 15%. --> IV Venofer for today and will repeat for tomorrow. 3rd dose if remains inpatient B12 low normal 357 and also started replacement (11) Iron deficiency: Plan: as above Plan: Continued inpatient stay iron/b12 replacement as above Xarelto to be continued at d/c Continued search for placement SNF Admission and Anticipated Discharge Date Admission Date: June 22, 2021 Supervising Physician Co-Signing Physician Notes Attending Attestation - Chart reviewed in detail, care plan d/w FELIPE Hair. I agree w/ the gutierrez components of her documentation. Xarelto has been chosen for anticoagulation for VTE Rx. Noted the plan for iliac artery aneurysms. Thyroid nodules -refer to Dr Bearden (ENT) post/dc for management. Awaiting SNF placement. Herminio Houston MD Subjective Patient evaluated this afternoon. Doing well per his account. Up in the chair eating fish and asparagus. No shortness of breath. Did think his les were a little weak with therapy this morning but working on strength. No back pain reported. Discussed low iron and borderline low B12 and supplementation ordered. Currently receiving dose of IV Venofer for iron 30. No fever, always cold and covered w blankets, no chest pain, shortness of breath, cough, dysphagia, abdominal pain, nausea or vomiting at this time. Questions/concerns addressed. Working on f/u for Endocrine for FNA of thyroid nodule but possible do while inpatient if appt too far out? Will look into further. Review of Systems Review of Systems: All systems reviewed & are unremarkable except as noted in HPI & below Physical Exam Physical Exam: PHYSICAL EXAM General: Frail elderly male in NAD who is A&O to person/place but forgetful at times. Improvement in pallor HEENT: Head is normocephalic/atraumatic; Hearing grossly intact; Mucous membranes moist Neck: Supple; Trachea midline; Neg JVD; Neg lymphadenopathy. 2 small nodules to L thyroid appreciated Heart: RRR with no M/G/R Lungs: CTAB, no cough, not tachypneic, 93% on ROOM AIR. Abd: +BS throughout, soft, non-tender to palpation Extremities: Neg cyanosis or edema Neurological: Speech clear; Gross motor/sensory function intact; Neg focal neurologic deficits Psychiatric: Appropriate mood/affect; forgetful Results & Data Results & Data ([facility]) Vital Signs (Past 12 Hours) Vital Signs Temp Pulse Resp BP BP Pulse Ox 06/27/21 07:07 36.6 C 66 18 154/82 H 93 06/26/21 22:28 36.6 C 70 18 120/70 93 Laboratory Results 06/27/21 06/27/21 06/27/21 Range/Units 05:37 05:37 05:37 WBC (4.8-10.8) K/uL RBC (4.7-6.1) M/uL Hgb (14.0-18.0) g/dL Hct (42-52) % MCV (80-100) fL MCH (25-34) pg MCHC (32-36) g/dL RDW Std Deviation (36.4-46.3) fL RDW Coeff of Ana (11.5-14.5) % Plt Count (130-400) K/uL MPV (7.4-10.4) fL Immature Gran % (Auto) % Neut % (Auto) % Lymph % (Auto) % [place] % (Auto) % Eos % (Auto) % Baso % (Auto) % Neut # (Auto) (1.4-6.5) K/uL Lymph # (Auto) (1.2-3.4) K/uL [place] # (Auto) (0.11-0.59) K/uL Eos # (Auto) (0-0.5) K/uL Baso # (Auto) (0-0.2) K/uL Immature Gran # (Auto) (0.00-0.02) K/uL APTT 51.4 H* (21.0-31.0) Seconds PTT Ratio 2.0 Sodium (136-145) mmol/L Potassium (3.5-5.1) mmol/L Chloride (98-107) mmol/L Carbon Dioxide (21-32) mmol/L Anion Gap (3-11) BUN (7-18) mg/dl Creatinine (0.6-1.4) mg/dl Est Cr Clr Drug Dosing ml/min Est GFR ( Amer) ml/min Est GFR (Non-Af Amer) ml/min BUN/Creatinine Ratio (10-20) Glucose (70-99) mg/dl Calcium (8.5-10.1) mg/dl Iron 32 L (35-175) mcg/dl TIBC 189 L (250-450) mcg/dl Transferrin 147 L (200-360) mg/dl Transferrin % Sat 15 L (20-50) % Ferritin 345.5 (8-388) ng/ml Vitamin B12 Pending 06/27/21 06/27/21 06/26/21 Range/Units 05:37 05:37 06:32 WBC 4.28 L (4.8-10.8) K/uL RBC 3.75 L (4.7-6.1) M/uL Hgb 11.7 L (14.0-18.0) g/dL Hct 33.2 L (42-52) % MCV 88.5 (80-100) fL MCH 31.2 (25-34) pg MCHC 35.2 (32-36) g/dL RDW Std Deviation 49.1 H (36.4-46.3) fL RDW Coeff of Ana 15.1 H (11.5-14.5) % Plt Count 176 (130-400) K/uL MPV 9.3 (7.4-10.4) fL Immature Gran % (Auto) 0.2 % Neut % (Auto) 58.6 % Lymph % (Auto) 22.9 % [place] % (Auto) 9.6 % Eos % (Auto) 8.2 % Baso % (Auto) 0.5 % Neut # (Auto) 2.51 (1.4-6.5) K/uL Lymph # (Auto) 0.98 L (1.2-3.4) K/uL [place] # (Auto) 0.41 (0.11-0.59) K/uL Eos # (Auto) 0.35 (0-0.5) K/uL Baso # (Auto) 0.02 (0-0.2) K/uL Immature Gran # (Auto) 0.01 (0.00-0.02) K/uL APTT (21.0-31.0) Seconds PTT Ratio Sodium 132 L 133 L (136-145) mmol/L Potassium 3.9 4.0 (3.5-5.1) mmol/L Chloride 101 100 (98-107) mmol/L Carbon Dioxide 25 26 (21-32) mmol/L Anion Gap 6.0 7.0 (3-11) BUN 13 12 (7-18) mg/dl Creatinine 0.71 0.70 (0.6-1.4) mg/dl Est Cr Clr Drug Dosing 83.7 84.9 ml/min Est GFR ( Amer) 98.5 99.0 ml/min Est GFR (Non-Af Amer) 85.0 85.5 ml/min BUN/Creatinine Ratio 18.3 17.4 (10-20) Glucose 85 79 (70-99) mg/dl Calcium 8.5 8.6 (8.5-10.1) mg/dl Iron 30 L (35-175) mcg/dl TIBC (250-450) mcg/dl Transferrin (200-360) mg/dl Transferrin % Sat (20-50) % Ferritin (8-388) ng/ml Vitamin B12 Diagnostic Findings Thyroid Ultrasound 06/26/21 17:00 ULTRASOUND SOFT TISSUE HEAD AND NECK. INDICATION: MN ^eval nodule in patient with PEs, ?malignancy. TECHNIQUE: Multiple real time sonographic images of the thyroid were obtained. Comparison: None available at the time of this dictation. FINDINGS: The right thyroid lobe measures 2.4 x 5.3 x 2.1 cm. The left thyroid lobe measures approximately 1.8 x 4.4 x 2.4 cm. The isthmus measures 0.4 cm. The bilateral thyroid is diffusely heterogeneous in echotexture. #Nodule 1. LOCATION: Left midpole. Measurement: 1.9 x 1.6 x 1.6 cm. COMPOSITION: 2 points: Solid or almost completely solid. ECHOGENICITY: 2 points: Hypoechoic. SHAPE: 0 point: [id number]. MARGIN: 0 points: Smooth or Ill-defined. ECHOGENIC FOCI: 0 points: None or large comet-tail artifacts. Overall TI-RADS Score: 4, corresponding to TI-RADS category of 4/5. #Nodule 2. LOCATION: Left upper pole. Measurement: 1.2 x 1.0 x 0.9 cm. COMPOSITION: 2 points: Solid or almost completely solid. ECHOGENICITY: 1 point: Hyperechoic or isoechoic. SHAPE: 0 point: [id number]. MARGIN: 0 points: Smooth or Ill-defined. ECHOGENIC FOCI: 1 point: Macrocalcifications. Overall TI-RADS Score: 4, corresponding to TI-RADS category of 4/5. IMPRESSION: 2 thyroid nodules as above. The left mid pole lesion meets criteria for fine needle aspiration by ACR criteria. The upper pole lesion meets criteria for continued annual follow-up. 0 points = TR 1, benign 2 points= TR 2, not suspicious 3 points= TR 3, mildly suspicious. > 1.5 cm- follow year 1, 3, 5 years. > 2.5 cm- FNA 4-6 points= TR 4, moderately suspicious. > 1 cm- follow year 1, 2, 3, 5 years. >1.5 cm- FNA 7 or more points= TR 5, highly suspicious. > 0.5 cm- follow yearly x 5 years. > 1 cm- FNA ACT 112: Negative or not required by law. Electronically signed by: Corey Alfaro M.D. 06/27/2021 7:25 AM PG Care Time/CCT Total # of Minutes Spent Total Time Spent with Patient: Total time spent is greater than 50% in coordination of care (as documented) at patient's floor/unit and/or counseling patient: Coding Level of Care Code 52515 Subseq Hosp Care Lvl 3 Diagnoses Pulmonary embolism I26.99 Dehydration E86.0 Weakness R53.1 Iliac artery aneurysm, left I72.3 Iliac artery aneurysm, right I72.3 HTN (hypertension) I10 Compression fracture of L2 S32.020A Encounter type: initial encounter Decreased oral intake R63.8 Thyroid nodule E04.1 Anemia D64.9 Iron deficiency E61.1 (1) Compression fracture of L2 Encounter type: initial encounter Qualified Code(s): S32.020A - Wedge compression fracture of second lumbar vertebra, initial encounter for closed fracture
[2021-06-27] MEDS ORDERED: IRON SUCROSE 300 MG in SODIUM CHLORIDE 0.9% 250 ML IV SCH (12:00)
[2021-06-27] MEDS: CYANOCOBALAMIN 500 MCG TABLET (VITAMIN B-12) PO SCH (13:17)
[2021-06-27] MEDS ORDERED: FUROSEMIDE 20 MG TAB PO ONE (16:00)
[2021-06-27] MEDS ORDERED: QUEtiapine FUMARATE 25 MG TABLET PO ONE (17:19)
[2021-06-28 06:35] LABS: Hematocrit (blood only) 35.9 % (42-52); Hemoglobin 12.1 g/dL (14.0-18.0); Mean Corpuscular Hemoglobin 30.6 pg (25-34); Mean Corpuscular Hgb Conc 33.7 g/dL (32-36); Mean Corpuscular Volume 90.9 fL (80-100); Mean Platelet Volume 9.7 fL (7.4-10.4); Platelet Count 178 K/uL (130-400); RDW Coefficient of Variation 15.2 % (11.5-14.5); RDW Standard Deviation 50.2 fL (36.4-46.3); Red Blood Count 3.95 M/uL (4.7-6.1); White Blood Count 4.13 K/uL (4.8-10.8)
[2021-06-28 06:53] LABS: Partial Thromboplastin Ratio 2.1
[2021-06-28 06:55] LABS: BUN Creatinine Ratio 17.4 (10-20); Creatinine Clr Calc Pharmacy 95.8 ml/min; Est GFR (African American) 104.1 ml/min; Est GFR (Non-African American) 89.8 ml/min; Potassium 3.5 mmol/L (3.5-5.1)
[2021-06-28 07:01] LABS: Partial Thromboplastin Time 55.1 Seconds (21.0-31.0)
[2021-06-28] MEDS ORDERED: IRON SUCROSE 200 MG in 0.9 % SODIUM CHLORIDE 100 ML IV ONE (08:00)
[2021-06-28] MEDS: ACETAMINOPHEN 500 MG TAB PO SCH ×3 (08:46→21:15)
[2021-06-28] MEDS: CYANOCOBALAMIN 500 MCG TABLET (VITAMIN B-12) PO SCH (08:46)
[2021-06-28] MEDS: LIDOCAINE 5% 1 PATCH TD SCH (08:47)
[2021-06-28] MEDS: DICLOFENAC SOD 1% GEL 100 GM TUBE EXT SCH ×4 (08:47→21:14)
[2021-06-28] MEDS: RIVAROXABAN 15 MG TAB PO SCH ×2 (08:48→21:17)
[2021-06-28] MEDS: LOSARTAN POTASSIUM 25 MG TAB PO SCH (08:48)
--- NOTE | 2021-06-28 09:22 | Hospitalist Progress Note ---
Date of Service June 28, 2021 Assessment & Plan (1) Pulmonary embolism: Plan: Presented with dehydration/weakness Venous Dopplers NEGATIVE for DVT CT Chest with RLL pulmonary emboli; no change in aneurysmal dilatation of the ascending thoracic aorta, infrarenal abdominal aorta, and bilateral iliac arteries; healing T12 and L2 mild superior endplate compression fracture - T12 is new compared to last study CTA with PE partially occlusive in the RLL artery and with partial and total occlusion of multiple segmental arteries on the right. No evidence of R heart strain Also noted "Diffuse emphysematous changes with pulmonary hypertension". & "Left thyroid nodule. If not previously evaluated, nonemergent thyroid ultrasound can be performed." (see below) ECHO with normal LV function, moderate concentric LVH, mild-moderate pericardial effusion without evidence of tamponade Heparin --> Xarelto evening 06/24 and will need to continue BID for 20 days then switch to 20mg daily Started metoprolol 12.5mg daily --> holding given lower BPs. Have stabilized but would hold to prevent worsening hypotension Repeat limited ECHO with almost complete resolution of pericardial effusion ?? unclear etiology unless some bleeding then absorbed? No shortness of breath, not hypotensive. On room air but not taking as deep breaths and will order incentive spirometer to prevent overload --> Second dose Venofer today for iron of 30/trans % sat 15 Hgb 12.1 from 11.7. Will repeat tomorrow for 3rd dose and possible give dose of lasix if needed PT/OT consults for weakness on exam with recs for SNF --> CM following. Refs sent. (2) Dehydration: Plan: On admission, and given 2 L NSS + 20K, since resolved and would hold off any further IVF at this time Suspect low Na from slight volume overload as well and would hold off on any further IVF No need for diuretic at this time Na improved to 133 --> decreased to 132. Given 20mg PO lasix on 06/27 and Na 135 today Will repeat 20mg PO today Eating/drinking --> food preferences playing a role as well. Some days more hungry than others. Suspect no BM today causing lack of appetite TSH 0.9 wnl (of note, thyroid nodule and FNA to be arranged outpt as below) BMP in AM (3) Weakness: Plan: Likely multifactorial: Decreased oral intake, decreased ability of exercise due to arthritis and arterial disease, PEs as above, as well as iliac art aneursyms as below. He in particular has persistent pain across his lumbar spine spine associated with the L2 compression fracture - also has T12 which is new but shows signs of healing Back brace has been brought in - PT/OT involved -> Has been utilizing brace on/off --> discussed to wear with activity/up in bed for comfort. CONTINUED TO DENIES ANY PAIN TODAY --> wonder if as PEs treated pain subsiding Will also check B12 -> borderline low 357 --> started replacement which will hopefully help w balance/stability. Also replacement of iron as above. Unsure last c-scope will need to look into further (daughter cathryn said he had been regular and always normal) UA without evidence of infection PT/OT --> SNF at d/c per therapy recs (4) Iliac artery aneurysm, left: Plan: STABLE - R and L; also has other aneurysms (ascending thoracic and infrarenal) Patient was to have surgery by Dr. Davies but had to reschedule as daughter was out of town - currently due for Jun and can with Keke to see if this needs further pushed --> will need re-eval in office prior to procedure given anticoagulation as above Holding off on BB at this time due to periods of soft BPs/falls but could consider low dose metoprolol tomorrow if BPs continue to be stable (were high on admission 157/91s) Did discuss with Mena on Thursday as need for treat PE - if he does get the aneurysms repaired could consider at that time IVC filter if warranted - no indication for a direct consult from vascular Roqueto as above and will need seen by vascular prior to surgery and will set up appt at d/c (5) Iliac artery aneurysm, right: Plan: See above (6) HTN (hypertension): Plan: Stable Continue losartan--> decreased losartan to 25mg on 06/25 given borderline low BP to prevent falls as started low dose BB 12.5mg daily as above (BB on hold) BP stable (7) Compression fracture of L2: Plan: - Lidoderm patches; ALFREDO Tylenol brace from orthotics - He may benefit from a consult from pain management as outpatient --> pain reported controlled currently (NONE) (8) Decreased oral intake: Plan: Patient has had noticeable weight loss per family. He denies any abdominal pain. - given PEs...underlying malignancy? -- CTA does reveal a thyroid nodule - will check TSH --> NORMAL He reports not having any appetite --> improved appetite today and was asking for when lunch would be delivered. ?dietary choices maybe playing role? IMPROVED APPETITE Continue to monitor Updated daughter Luly evening 06/25. CM following. Updated daughter Cathryn marc 06/28 Also w thyroid nodule on imaging CT , US done last evening which shows L nodule need for FNA- see below (9) Thyroid nodule: Plan: seen on CT and appreciated on exam today Report FINDINGS: The right thyroid lobe measures 2.4 x 5.3 x 2.1 cm. The left thyroid lobe measures approximately 1.8 x 4.4 x 2.4 cm. The isthmus measures 0.4 cm. The bilateral thyroid is diffusely heterogeneous in echotexture. #Nodule 1. LOCATION: Left midpole. Measurement: 1.9 x 1.6 x 1.6 cm. COMPOSITION: 2 points: Solid or almost completely solid. ECHOGENICITY: 2 points: Hypoechoic. SHAPE: 0 point: Lmemr-wfey-voxy. MARGIN: 0 points: Smooth or Ill-defined. ECHOGENIC FOCI: 0 points: None or large comet-tail artifacts. Overall TI-RADS Score: 4, corresponding to TI-RADS category of 4/5. #Nodule 2. LOCATION: Left upper pole. Measurement: 1.2 x 1.0 x 0.9 cm. COMPOSITION: 2 points: Solid or almost completely solid. ECHOGENICITY: 1 point: Hyperechoic or isoechoic. SHAPE: 0 point: Cyxig-lprf-eold. MARGIN: 0 points: Smooth or Ill-defined. ECHOGENIC FOCI: 1 point: Macrocalcifications. Overall TI-RADS Score: 4, corresponding to TI-RADS category of 4/5. IMPRESSION: 2 thyroid nodules as above. The left mid pole lesion meets criteria for fine needle aspiration by ACR criteria. The upper pole lesion meets criteria for continued annual follow-up. Discussed and endocrine not until 2021--> seeing about getting in with ENT Dr Bearden for FNA. Relayed info to family by CM for f/u regarding this --> Appt arranged for July and this was relayed to family adrianhowie (10) Anemia: Plan: Normocytic Hgb 11.7 -- no signs of hematuria -- urine clear in urinal at bedside moving bowels and per RN no blood noted Iron studies --> LOW iron 32, transferrin 147 and trans % sat 15%. --> IV Venofer for today and will repeat for tomorrow. 3rd dose if remains inpatient B12 low normal 357 and also started replacement Hgb 12.1 and stable (11) Iron deficiency: Plan: as above 2nd dose venofer today, 3rd tomorrow Plan: Continued inpatient stay iron/b12 replacement as above Xarelto to be continued at d/c Continued search for placement SNF Admission and Anticipated Discharge Date Admission Date: June 22, 2021 Supervising Physician Co-Signing Physician Notes Attending Attestation - Chart reviewed in detail, care plan d/w PA Ricarda Hair. I agree w/ the gutierrez components of her documentation. Xarelto for PEs. Noted the plan for iliac artery aneurysms (surgery upcoming with Dr Davies, [facility]). Thyroid nodules -refer to Dr Bearden (ENT) post/dc for management. Pericardial effusion - mild-mod effusion on previous echo; repeat echo - trace effusion. Etiology?? Uncertain how an effusion could resolve that quickly. Was first echo false reading? other explanation? Still awaiting SNF placement. Still awaiting records from recent stay at [facility] (HIM consulted for assistance). Herminio Houston MD Subjective Patient evaluated this morning. Doing well. No complaints. No back pain reported. Patient denies any fever, chills, chest pain, shortness of breath, cough, abdominal pain, nausea or vomiting. Eating/drinking. Voiding in urinal, continues to be clear. BM yesterday but nothing yet today. Issues with this at home as well No further agitation and in his clothes now from home -- discussed with daughter Cathryn to drop off additional clothes for tomorrow and reviewed plan of care. Review of Systems Review of Systems: All systems reviewed & are unremarkable except as noted in HPI & below Physical Exam Physical Exam: PHYSICAL EXAM General: Frail elderly male in NAD who is A&O to person/place but forgetful at times. Improvement in pallor again today HEENT: Head is normocephalic/atraumatic; Hearing grossly intact; Mucous membranes slightly dry Neck: Supple; Trachea midline; Neg JVD; Neg lymphadenopathy. 2 small nodules to L thyroid appreciated, non-tender Heart: RRR with no M/G/R Lungs: CTAB, no cough, not tachypneic, on ROOM AIR. Abd: +BS throughout, soft, non-tender to palpation Extremities: Neg cyanosis or edema Neurological: Speech clear; Gross motor/sensory function intact; Neg focal neurologic deficits Psychiatric: Appropriate mood/affect; forgetful Results & Data Results & Data ([facility]) Vital Signs (Past 12 Hours) Vital Signs Temp Pulse Resp BP BP Pulse Ox 06/28/21 06:41 37.0 C 72 16 131/75 92 06/27/21 22:37 36.3 C L 72 17 150/77 H 94 Laboratory Results 06/28/21 06/28/21 06/28/21 Range/Units 05:36 05:36 05:36 WBC 4.13 L (4.8-10.8) K/uL RBC 3.95 L (4.7-6.1) M/uL Hgb 12.1 L (14.0-18.0) g/dL Hct 35.9 L (42-52) % MCV 90.9 (80-100) fL MCH 30.6 (25-34) pg MCHC 33.7 (32-36) g/dL RDW Std Deviation 50.2 H (36.4-46.3) fL RDW Coeff of Ana 15.2 H (11.5-14.5) % Plt Count 178 (130-400) K/uL MPV 9.7 (7.4-10.4) fL APTT 55.1 H* (21.0-31.0) Seconds PTT Ratio 2.1 Sodium 135 L (136-145) mmol/L Potassium 3.5 (3.5-5.1) mmol/L Chloride 102 (98-107) mmol/L Carbon Dioxide 28 (21-32) mmol/L Anion Gap 5.0 (3-11) BUN 11 (7-18) mg/dl Creatinine 0.62 (0.6-1.4) mg/dl Est Cr Clr Drug Dosing 95.8 ml/min Est GFR ( Amer) 104.1 ml/min Est GFR (Non-Af Amer) 89.8 ml/min BUN/Creatinine Ratio 17.4 (10-20) Glucose 87 (70-99) mg/dl Calcium 9.0 (8.5-10.1) mg/dl Vitamin B12 (193-986) pg/ml 06/27/21 Range/Units 05:37 WBC (4.8-10.8) K/uL RBC (4.7-6.1) M/uL Hgb (14.0-18.0) g/dL Hct (42-52) % MCV (80-100) fL MCH (25-34) pg MCHC (32-36) g/dL RDW Std Deviation (36.4-46.3) fL RDW Coeff of Ana (11.5-14.5) % Plt Count (130-400) K/uL MPV (7.4-10.4) fL APTT (21.0-31.0) Seconds PTT Ratio Sodium (136-145) mmol/L Potassium (3.5-5.1) mmol/L Chloride (98-107) mmol/L Carbon Dioxide (21-32) mmol/L Anion Gap (3-11) BUN (7-18) mg/dl Creatinine (0.6-1.4) mg/dl Est Cr Clr Drug Dosing ml/min Est GFR ( Amer) ml/min Est GFR (Non-Af Amer) ml/min BUN/Creatinine Ratio (10-20) Glucose (70-99) mg/dl Calcium (8.5-10.1) mg/dl Vitamin B12 357 (193-986) pg/ml PG Care Time/CCT Total # of Minutes Spent Total Time Spent with Patient: Total time spent is greater than 50% in coordination of care (as documented) at patient's floor/unit and/or counseling patient: Coding Level of Care Code 00230 Subseq Hosp Care Lvl 3 Diagnoses Pulmonary embolism I26.99 Dehydration E86.0 Weakness R53.1 Iliac artery aneurysm, left I72.3 Iliac artery aneurysm, right I72.3 HTN (hypertension) I10 Compression fracture of L2 S32.020A Encounter type: initial encounter Decreased oral intake R63.8 Thyroid nodule E04.1 Anemia D64.9 Iron deficiency E61.1 (1) Compression fracture of L2 Encounter type: initial encounter Qualified Code(s): S32.020A - Wedge compression fracture of second lumbar vertebra, initial encounter for closed fracture
[2021-06-28] MEDS: DOCUSATE SODIUM/SENNA 50/8.6MG TAB PO SCH (17:27)
[2021-06-28] MEDS ORDERED: FUROSEMIDE 20 MG TAB PO STA (18:09)
--- NOTE | 2021-06-28 19:27 | XRay Report ---
XR foot LT min 3V routine CLINICAL HISTORY: foot pain, pain w ambulation COMPARISON: None FINDINGS: Pes planus deformity is noted on lateral projection. There is posterior and plantar calcan eal spurring. Tarsometatarsal joints are intact. No acute fracture within the left foot is noted. Mil d to moderate osteoarthritis is noted within multiple articulations of the left foot, most pronounced at the level of the left first metatarsophalangeal joint. IMPRESSION: 1. No acute fracture or dislocation within the left foot. 2. 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 ACT 112: Negative or not required by law. Electronically signed by: Donovan Manzo M.D. 06/28/2021 7:26 PM
[2021-06-28] MEDS ORDERED: QUEtiapine FUMARATE 25 MG TABLET PO SCH (21:00)
[2021-06-29 07:15] LABS: Basophils # (auto) 0.03 K/uL (0-0.2); Basophils % (auto) 0.9 %; Eosinophils # (auto) 0.42 K/uL (0-0.5); Eosinophils % (auto) 12.2 %; Hematocrit (blood only) 33.4 % (42-52); Hemoglobin 11.4 g/dL (14.0-18.0); Immature Granulocytes # (auto) 0.01 K/uL (0.00-0.02); Immature Granulocytes % (auto) 0.3 %; Lymphocytes # (auto) 0.95 K/uL (1.2-3.4); Lymphocytes % (auto) 27.6 %; Mean Corpuscular Hemoglobin 30.8 pg (25-34); Mean Corpuscular Hgb Conc 34.1 g/dL (32-36); Mean Corpuscular Volume 90.3 fL (80-100); Mean Platelet Volume 9.6 fL (7.4-10.4); Monocytes # (auto) 0.42 K/uL (0.11-0.59); Monocytes % (auto) 12.2 %; Neutrophils # (auto) 1.61 K/uL (1.4-6.5); Neutrophils % (auto) 46.8 %; Platelet Count 183 K/uL (130-400); RDW Coefficient of Variation 15.4 % (11.5-14.5); RDW Standard Deviation 50.7 fL (36.4-46.3); White Blood Count 3.44 K/uL (4.8-10.8)
[2021-06-29 07:34] LABS: Calcium 8.7 mg/dl (8.5-10.1); Creatinine Clr Calc Pharmacy 84.9 ml/min; Est GFR (Non-African American) 85.5 ml/min; Potassium 3.6 mmol/L (3.5-5.1)
[2021-06-29] MEDS: ACETAMINOPHEN 500 MG TAB PO SCH ×3 (08:00→20:53)
[2021-06-29] MEDS: LOSARTAN POTASSIUM 25 MG TAB PO SCH (08:00)
[2021-06-29] MEDS: RIVAROXABAN 15 MG TAB PO SCH ×2 (08:00→21:28)
[2021-06-29] MEDS: DOCUSATE SODIUM/SENNA 50/8.6MG TAB PO SCH (08:01)
[2021-06-29] MEDS: CYANOCOBALAMIN 500 MCG TABLET (VITAMIN B-12) PO SCH (08:01)
[2021-06-29] MEDS: DICLOFENAC SOD 1% GEL 100 GM TUBE EXT SCH ×4 (08:01→20:54)
[2021-06-29] MEDS: LIDOCAINE 5% 1 PATCH TD SCH (08:21)
--- NOTE | 2021-06-29 09:09 | Hospitalist Progress Note ---
Date of Service June 29, 2021 Assessment & Plan (1) Pulmonary embolism: Plan: Presented with dehydration/weakness, ongoing. Per daughter, prior DVT in past after a fall. Was on anticoagulation for a time but then not required after per her account. Recent hospitalization/ER visit for vasculitis at [place] possibly? Records requested currently Venous Dopplers NEGATIVE for DVT CT Chest --RLL pulmonary emboli; no change in aneurysmal dilatation of the ascending thoracic aorta, infrarenal abdominal aorta, and bilateral iliac arteries; healing T12 and L2 mild superior endplate compression fracture - T12 is new compared to last study CTA with PE partially occlusive in the RLL artery and with partial and total occlusion of multiple segmental arteries on the right. No evidence of R heart strain Also noted "Diffuse emphysematous changes with pulmonary hypertension". & "Left thyroid nodule. If not previously evaluated, nonemergent thyroid ultrasound can be performed." (see below) ECHO with normal LV function, moderate concentric LVH, mild-moderate pericardial effusion without evidence of tamponade Heparin --> Xarelto evening 06/24 and will need to continue BID for 20 days then switch to 20mg daily Repeat limited ECHO with almost complete resolution of pericardial effusion ?? unclear etiology unless some bleeding then absorbed? No shortness of breath, not hypotensive. --> On room air but was not taking as deep breaths and ordered IS to prevent pulm toilet --> currently 93% on RA --> 3rd dose Venofer for today -- iron was 30/trans% sat 15 PT/OT consults for weakness on exam with recs for SNF --> CM following. Refs sent. No bed availability at this time Of note, conversation with daughter Cathryn last evening with recent trip to [facility] for a suspected vasculitis and was discharged on prednisone for a diffuse purple rash to bilateral legs and back which did resolve to steroids. Not appreciated on examination and patient not sure to what being referred --> Requested records for most recent ER visit/hospitalization from [place] pending Started metoprolol 12.5mg daily earlier in the week however BPs hypotensive and this held (2) Dehydration: Plan: On admission, and given 2 L NSS + 20K, since resolved and would hold off any further IVF at this time Suspect low Na from slight volume overload as well and would hold off on any further IVF No need for diuretic at this time Na improved to 133 --> decreased to 132. Given 20mg PO lasix on 06/27 and Na 135 today Will repeat 20mg PO today Eating/drinking --> food preferences playing a role as well. Some days more hungry than others. Suspect no BM today causing lack of appetite TSH 0.9 wnl (of note, thyroid nodule and FNA to be arranged outpt as below) Na up to 134 -- asked dietary for more easy to chew given issues with asparagus day prior too stingy while watching him attempt to eat supper. Ate most of stuffed shells/boost for lunch and working on improvement of PO intake --> per daughter Cathryn low oral intake at times due to constipation. Last documented BM in system 06/26, however patient told me he had a BM yesterday BMP in AM (3) Weakness: Plan: Likely multifactorial: Decreased oral intake, decreased ability of exercise due to arthritis and arterial disease, PEs as above, as well as iliac art aneursyms as below. He in particular has persistent pain across his lumbar spine spine associated with the L2 compression fracture - also has T12 which is new but shows signs of healing Back brace has been brought in - PT/OT involved -> Has been utilizing brace on/off --> discussed to wear with activity/up in bed for comfort. CONTINUED TO DENIES ANY PAIN TODAY --> wonder if as PEs treated pain subsiding B12 -> borderline low 357 --> started replacement which will hopefully help w balance/stability as well as cognition given baseline memory/dementia issues Also replacement of iron as above. Unsure last c-scope will need to look into further --> discussed with Cathryn evening 06/28 and he had regular c-scopes which were always told to be normal UA without evidence of infection PT/OT --> SNF at d/c per therapy recs (4) Iliac artery aneurysm, left: Plan: STABLE - R and L; also has other aneurysms (ascending thoracic and infrarenal) Patient was to have surgery by Dr. Davies but had to reschedule as daughter was out of town - currently due for Jun and can with Keke to see if this needs further pushed --> will need re-eval in office prior to procedure given anticoagulation as above Holding off on BB at this time due to periods of soft BPs/falls but could consider low dose metoprolol tomorrow if BPs continue to be stable (were high on admission 157/91s) discuss with Mena earlier this week as need for treat PE - if he does get the aneurysms repaired could consider at that time IVC filter if warranted - no indication for a direct consult from vascular Lydia as above and will need seen by vascular prior to surgery and will set up appt at d/c (5) Iliac artery aneurysm, right: Plan: See above (6) HTN (hypertension): Plan: Stable Continue losartan--> decreased losartan to 25mg on 06/25 given borderline low BP to prevent falls/dehydration BP stable Would ideally like low dose BB given aneurysm if possible but would hold off at this time given (7) Compression fracture of L2: Plan: - Lidoderm patches; ALFREDO Tylenol also with new T12 compression fx but shows signs of healing-- not requiring anything for pain and not using brace from orthotics but hasn't been ambulating much except with therapy - He may benefit from a consult from pain management as outpatient --> pain reported controlled currently (NO PAIN) Will check Vit D level in AM (8) Decreased oral intake: Plan: Patient has had noticeable weight loss per family. He denies any abdominal pain. - given PEs...underlying malignancy? -- CTA does reveal a thyroid nodule - will check TSH --> NORMAL (will also check T4/T3 in AM) Previously reported not having any appetite --> improved appetite today and was asking for when lunch would be delivered. ?dietary choices maybe playing role? --> per family, issues with constipation at home likely contributing Continue to monitor (9) Thyroid nodule: Plan: seen on CT and appreciated on exam US Thyroid completed 2 thyroid nodules --> left midpole lesion meeting criteria for fine needle aspiration by ACR criteria. The upper pole lesion meets criteria for continued annual follow-up. --> Arranged f/u ENT with Dr. Bearden for FNA in July. Endocrine not available until 2021 (10) Anemia: Plan: Normocytic no signs of hematuria -- urine clear in urinal at bedside moving bowels and per RN no blood noted Iron studies --> LOW iron 32, transferrin 147 and trans % sat 15%. --> IV Venofer x 3 completed 06/29 B12 low normal 357 and also started replacement No active bleeding noted at this time Hx prostate ca. s/p XRT >10yrs ago. No follow up recently. No abn or lytic lesions on imaging upon review however appears there have been concerns. Will check PSA in AM but rec continued follow up if elevated (11) Iron deficiency: Plan: as above Venofer x 3 while inpatient Hx C-scopes being normal in past. No alternating BMs but does have issues with constipation -- bowel regimen ordered to prevent constipation issues CTAP -->without evidence for mass on most recent imaging May 2021 Plan: Continued inpatient stay iron/b12 replacement as above Continue Xarelto Awaiting d/c records from [place] --? no new meds outside of losartan/ASA 81mg at last d/c from [facility] Will change seroquel to 12.5mg HS PRN given family concerns however has been effective and will keep available while in hospital given risk for delirium Updated daughter Luly evening 06/25. CM following. Updated daughter Cathryn 06/28 Additional referrals to rehab made yesterday -- continued search for SNF Admission and Anticipated Discharge Date Admission Date: June 22, 2021 Supervising Physician Co-Signing Physician Notes Attending Attestation - Chart reviewed in detail, care plan d/w PA Ricarda Hair. I agree w/ the gutierrez components of her documentation. Xarelto for PEs. Noted the plan for iliac artery aneurysms (surgery upcoming with Dr Davies, [facility]). Thyroid nodules -refer to Dr Bearden (ENT) post/dc for management. Pericardial effusion - mild-mod effusion on previous echo; repeat echo - trace effusion. Etiology?? Uncertain how an effusion could resolve that quickly. Was first echo false reading? other explanation? Either way it is nearly resolved. Still awaiting SNF placement. Still awaiting records from recent stay at [facility] (HIM consulted for assistance). Other plans per Ms Hair. Herminio Houston MD Subjective Patient evaluated this afternoon. Up in bed eating stuffed shells and boost. States so much food but he is trying to get down what he can. Good appetite. NO fever, chills, chest pain, shortness of breath. No dysuria and has been using urinal. No hematuria or melena/hematochezia. Still awaiting available bed at rehab --> likely until next week. Daughter dropped of more clothes -- would like ot change for comfort. Daughter w concerns for skin bump-- not able to be appreciated on exam. No swelling of testes but upon asking he states his daughters worry but that's when he rests his hand there for a while then he can notice soreness but no swelling. NO issues with voiding - no pain or feeling like incomplete emptying. Has been making adequate urine. No back pain today continues. Improvement in strength and pallor with iron supplementation along with B12. Questions/concerns addressed at this time. Review of Systems Review of Systems: All systems reviewed & are unremarkable except as noted in HPI & below Physical Exam Physical Exam: PHYSICAL EXAM General: Frail elderly male in NAD who is A&O to person/place but forgetful at times. Improvement in pallor again today HEENT: Head is normocephalic/atraumatic; Hearing grossly intact; Mucous membranes moist Neck: Supple; Trachea midline; Neg JVD; Neg lymphadenopathy. 2 small nodules to L thyroid appreciated, non-tender Heart: RRR with no M/G/R Lungs: CTAB, no cough, not tachypneic, on ROOM AIR. 93% Abd: +BS throughout, soft, non-tender to palpation Extremities: Neg cyanosis or edema Neurological: Speech clear; Gross motor/sensory function intact; Neg focal neurologic deficits Psychiatric: Appropriate mood/affect; forgetful at times but seems little bit improved compared to previous visits Results & Data Results & Data ([facility]) Vital Signs (Past 12 Hours) Vital Signs Temp Pulse Pulse Resp BP Pulse Ox 06/29/21 07:21 36.5 C 72 16 131/75 93 06/28/21 22:26 36.8 C 75 18 123/70 94 Laboratory Results 06/29/21 06/29/21 Range/Units 06:44 06:44 WBC 3.44 L (4.8-10.8) K/uL RBC 3.70 L (4.7-6.1) M/uL Hgb 11.4 L (14.0-18.0) g/dL Hct 33.4 L (42-52) % MCV 90.3 (80-100) fL MCH 30.8 (25-34) pg MCHC 34.1 (32-36) g/dL RDW Std Deviation 50.7 H (36.4-46.3) fL RDW Coeff of Ana 15.4 H (11.5-14.5) % Plt Count 183 (130-400) K/uL MPV 9.6 (7.4-10.4) fL Immature Gran % (Auto) 0.3 % Neut % (Auto) 46.8 % Lymph % (Auto) 27.6 % Green % (Auto) 12.2 % Eos % (Auto) 12.2 % Baso % (Auto) 0.9 % Neut # (Auto) 1.61 (1.4-6.5) K/uL Lymph # (Auto) 0.95 L (1.2-3.4) K/uL Green # (Auto) 0.42 (0.11-0.59) K/uL Eos # (Auto) 0.42 (0-0.5) K/uL Baso # (Auto) 0.03 (0-0.2) K/uL Immature Gran # (Auto) 0.01 (0.00-0.02) K/uL Sodium 134 L (136-145) mmol/L Potassium 3.6 (3.5-5.1) mmol/L Chloride 102 (98-107) mmol/L Carbon Dioxide 29 (21-32) mmol/L Anion Gap 4.0 (3-11) BUN 16 (7-18) mg/dl Creatinine 0.70 (0.6-1.4) mg/dl Est Cr Clr Drug Dosing 84.9 ml/min Est GFR ( Amer) 99.0 ml/min Est GFR (Non-Af Amer) 85.5 ml/min BUN/Creatinine Ratio 23.0 H (10-20) Glucose 90 (70-99) mg/dl Calcium 8.7 (8.5-10.1) mg/dl PG Care Time/CCT Total # of Minutes Spent Total Time Spent with Patient: Total time spent is greater than 50% in coordination of care (as documented) at patient's floor/unit and/or counseling patient: Coding Level of Care Code 76866 Subseq Hosp Care Lvl 3 Diagnoses Pulmonary embolism I26.99 Dehydration E86.0 Weakness R53.1 Iliac artery aneurysm, left I72.3 Iliac artery aneurysm, right I72.3 HTN (hypertension) I10 Compression fracture of L2 S32.020A Encounter type: initial encounter Decreased oral intake R63.8 Thyroid nodule E04.1 Anemia D64.9 Iron deficiency E61.1 (1) Compression fracture of L2 Encounter type: initial encounter Qualified Code(s): S32.020A - Wedge compression fracture of second lumbar vertebra, initial encounter for closed fracture
[2021-06-29] MEDS ORDERED: IRON SUCROSE 200 MG in 0.9 % SODIUM CHLORIDE 100 ML IV ONE (11:00)
[2021-06-29] MEDS ORDERED: QUEtiapine FUMARATE 25 MG TABLET PO PRN (16:33)
[2021-06-29] MEDS ORDERED: bisacodyL 5 MG TABEC PO PRN (16:38)
[2021-06-29] MEDS ORDERED: bisacodyL 5 MG TABEC PO ONE (16:38)
[2021-06-29] MEDS ORDERED: FUROSEMIDE 20 MG TAB PO ONE (17:17)
[2021-06-30] MEDS: RIVAROXABAN 15 MG TAB PO SCH ×2 (07:33→20:30)
[2021-06-30] MEDS: ACETAMINOPHEN 500 MG TAB PO SCH ×3 (07:33→20:29)
[2021-06-30] MEDS: LOSARTAN POTASSIUM 25 MG TAB PO SCH (07:33)
[2021-06-30] MEDS: DICLOFENAC SOD 1% GEL 100 GM TUBE EXT SCH ×4 (07:34→20:29)
[2021-06-30] MEDS: POLYETHYLENE (MIRALAX) 17 GM PACK PO SCH (07:34)
[2021-06-30] MEDS: LIDOCAINE 5% 1 PATCH TD SCH (07:34)
[2021-06-30] MEDS: DOCUSATE SODIUM/SENNA 50/8.6MG TAB PO SCH (07:35)
[2021-06-30] MEDS: CYANOCOBALAMIN 500 MCG TABLET (VITAMIN B-12) PO SCH (07:55)
[2021-06-30 08:50] LABS: Hematocrit (blood only) 35.7 % (42-52); Hemoglobin 12.1 g/dL (14.0-18.0); Mean Corpuscular Hemoglobin 30.9 pg (25-34); Mean Corpuscular Hgb Conc 33.9 g/dL (32-36); Mean Corpuscular Volume 91.3 fL (80-100); Mean Platelet Volume 9.4 fL (7.4-10.4); Platelet Count 201 K/uL (130-400); RDW Coefficient of Variation 15.5 % (11.5-14.5); RDW Standard Deviation 51.7 fL (36.4-46.3); Red Blood Count 3.91 M/uL (4.7-6.1); White Blood Count 4.12 K/uL (4.8-10.8)
[2021-06-30 09:16] LABS: Calcium 8.8 mg/dl (8.5-10.1); Creatinine Clr Calc Pharmacy 86.1 ml/min; Est GFR (African American) 99.6 ml/min; Potassium 3.7 mmol/L (3.5-5.1); T4 Free Thyroxine 1.13 ng/dl (0.8-1.6)
[2021-06-30 09:20] LABS: Prostate Specific Antigen 0.073 ng/ml (0-4)
--- NOTE | 2021-06-30 09:50 | Hospitalist Progress Note ---
Date of Service June 30, 2021 Assessment & Plan (1) Pulmonary embolism: Plan: Presented with dehydration/weakness, ongoing. Per daughter, prior DVT in past after a fall. Was on anticoagulation for a time but then not required after per her account. Recent hospitalization/ER visit for vasculitis at [place] possibly? Records requested currently Venous Dopplers NEGATIVE for DVT CT Chest --RLL pulmonary emboli; no change in aneurysmal dilatation of the ascending thoracic aorta, infrarenal abdominal aorta, and bilateral iliac arteries; healing T12 and L2 mild superior endplate compression fracture - T12 is new compared to last study CTA with PE partially occlusive in the RLL artery and with partial and total occlusion of multiple segmental arteries on the right. No evidence of R heart strain Also noted "Diffuse emphysematous changes with pulmonary hypertension". & "Left thyroid nodule. If not previously evaluated, nonemergent thyroid ultrasound can be performed." (see below) ECHO with normal LV function, moderate concentric LVH, mild-moderate pericardial effusion without evidence of tamponade Heparin --> Xarelto evening 06/24 and will need to continue BID for 20 days then switch to 20mg daily Repeat limited ECHO with almost complete resolution of pericardial effusion ?? unclear etiology unless some bleeding then absorbed? No shortness of breath, not hypotensive. --> On room air but was not taking as deep breaths and ordered IS to prevent pulm toilet -->remains stable on room air. Got 3rd dose Venfoer 06/29. Hgb 12.1 (also getting B12) PT/OT consults for weakness on exam with recs for SNF --> CM following. Refs sent. No bed availability at this time Of note, conversation with daughter Cathryn last evening with recent trip to [facility] for a suspected vasculitis and was discharged on prednisone for a diffuse purple rash to bilateral legs and back which did resolve to steroids. Not appreciated on examination and patient not sure to what being referred --> Requested records for most recent ER visit/hospitalization from [place] pending --> still NOT received Started metoprolol 12.5mg daily earlier in the week however BPs hypotensive and this held (2) Dehydration: Plan: On admission, and given 2 L NSS + 20K, since resolved and would hold off any further IVF at this time Suspect low Na from slight volume overload as well and would hold off on any further IVF-- did get lasix 20mg x 2 with Venofer Eating/drinking --> food preferences playing a role as well. Some days more hungry than others. Suspect no BM today causing lack of appetite TSH 0.9 wnl (of note, thyroid nodule and FNA to be arranged outpt as below) Euvolemic on exam today Suspect some issue 2nd to constipation which daughter Cathryn states happens at home --> BM last on 06/28 despite documented 06/26. Dulcolax today however had very active BS on exam and non-tender Continue to monitor (3) Weakness: Plan: Likely multifactorial: Decreased oral intake, decreased ability of exercise due to arthritis and arterial disease, PEs as above, as well as iliac art aneursyms as below. He in particular has persistent pain across his lumbar spine spine associated with the L2 compression fracture - also has T12 which is new but shows signs of healing Back brace has been brought in - PT/OT involved -> Has been utilizing brace on/off --> discussed to wear with activity/up in bed for comfort. CONTINUED TO DENIES ANY PAIN TODAY --> wonder if as PEs treated pain subsiding B12 -> borderline low 357 --> started replacement which will hopefully help w balance/stability as well as cognition given baseline memory/dementia issues Also replacement of iron as above. Unsure last c-scope will need to look into further --> discussed with Cathryn evening 06/28 and he had regular c-scopes which were always told to be normal UA without evidence of infection PT/OT --> SNF at d/c per therapy recs (4) Iliac artery aneurysm, left: Plan: STABLE - R and L; also has other aneurysms (ascending thoracic and infrarenal) Patient was to have surgery by Dr. Davies but had to reschedule as daughter was out of town - currently due for Jun and can with Keke to see if this needs further pushed --> will need re-eval in office prior to procedure given anticoagulation as above Holding off on BB at this time due to periods of soft BPs/falls but could consider low dose metoprolol tomorrow if BPs continue to be stable (were high on admission 157/91s) discuss with Mena earlier this week as need for treat PE - if he does get the aneurysms repaired could consider at that time IVC filter if warranted - no indication for a direct consult from vascular Lydia as above and will need seen by vascular prior to surgery and will set up appt at d/c (5) Iliac artery aneurysm, right: Plan: See above (6) HTN (hypertension): Plan: Stable Continue losartan--> decreased losartan to 25mg on 06/25 given borderline low BP to prevent falls/dehydration BP stable Would ideally like low dose BB given aneurysm if possible but would hold off at this time given (7) Compression fracture of L2: Plan: - Lidoderm patches; ALFREDO Tylenol also with new T12 compression fx but shows signs of healing-- not requiring anything for pain and not using brace from orthotics but hasn't been ambulating much except with therapy - He may benefit from a consult from pain management as outpatient --> pain reported controlled currently (NO PAIN) Vit D level pending (8) Decreased oral intake: Plan: Patient has had noticeable weight loss per family. He denies any abdominal pain. - given PEs...underlying malignancy? -- CTA does reveal a thyroid nodule - will check TSH --> wnl Previously reported not having any appetite -->continues with good appetite Continue to monitor (9) Thyroid nodule: Plan: seen on CT and appreciated on exam TSH wnl US Thyroid completed 2 thyroid nodules --> left midpole lesion meeting criteria for fine needle aspiration by ACR criteria. The upper pole lesion meets criteria for continued annual follow-up. --> Arranged f/u ENT with Dr. Bearden for FNA in July. Endocrine not available until 2021 T4/T3 pending (10) Anemia: Plan: Normocytic no signs of hematuria -- urine clear in urinal at bedside moving bowels and per RN no blood noted Iron studies --> LOW iron 32, transferrin 147 and trans % sat 15%. --> IV Venofer x 3 completed 06/29 B12 low normal 357 and also started replacement No active bleeding noted at this time Hx prostate ca. s/p XRT >10yrs ago. No follow up recently. No abn or lytic lesions on imaging upon review however appears there have been concerns about underlying cancerous process given decreased intake (see above) Hgb stable 12.1 (11) Iron deficiency: Plan: as above Venofer x 3 while inpatient, completed Hx C-scopes being normal in past. No alternating BMs but does have issues with constipation -- bowel regimen ordered to prevent constipation issues CTAP -->without evidence for mass on most recent imaging May 2021 Plan: Continued inpatient stay Continue Xarelto Awaiting d/c records from [place] --? no new meds outside of losartan/ASA 81mg at last d/c from [facility] Will change seroquel to 12.5mg HS PRN given family concerns however has been effective and will keep available while in hospital given risk for delirium Updated daughter Luly evening 06/25. CM following. Updated daughter Cathryn 06/28 Additional referrals to rehab made -- continued search for SNF Admission and Anticipated Discharge Date Admission Date: June 22, 2021 Supervising Physician Co-Signing Physician Notes Attending Attestation - Chart reviewed in detail, care plan d/w PA Ricarda Hair. I agree w/ the gutierrez components of her documentation. Xarelto for PEs. Noted the plan for iliac artery aneurysms. Thyroid nodules -refer to Dr Bearden (ENT) post/dc for management. Still awaiting SNF placement. ?recent hospital stay in [place] for vasculitis? Awaiting records; patient cannot give information/details on his recent outside hospital stay. Herminio Houston MD Subjective Eval this afternoon. Doing well Currently eating lunch. Stomach rumbling making lots of sounds, some gas but no BM today. He would like to wait until afternoon before getting anything to have BM. Denies abdominal pain. No nausea or vomiting. No fever, chills chest pain, shortness of breath or cough. Continues to await placement. Review of Systems Review of Systems: All systems reviewed & are unremarkable except as noted in HPI & below Physical Exam Physical Exam: PHYSICAL EXAM General: Frail elderly male in NAD who is A&O to person/place but forgetful at times. Improvement in pallor again today HEENT: Head is normocephalic/atraumatic; Hearing grossly intact; Mucous membranes moist Neck: Supple; Trachea midline; Neg JVD; Neg lymphadenopathy. 2 small nodules to L thyroid appreciated, non-tender Heart: RRR with no M/G/R Lungs: CTAB, no cough, not tachypneic, on ROOM AIR Abd: +BS throughout, soft, non-tender to palpation Extremities: Neg cyanosis or edema Neurological: Speech clear; Gross motor/sensory function intact; Neg focal neurologic deficits Psychiatric: Appropriate mood/affect; forgetful at times but seems little bit improved compared to previous visits Results & Data Results & Data ([facility]) Vital Signs (Past 12 Hours) Vital Signs Temp Pulse Resp BP BP Pulse Ox 06/30/21 07:19 36.8 C 72 16 112/69 92 06/29/21 23:32 36.6 C 68 16 104/66 94 Laboratory Results 06/30/21 06/30/21 06/30/21 Range/Units 08:13 08:13 08:13 WBC 4.12 L (4.8-10.8) K/uL RBC 3.91 L (4.7-6.1) M/uL Hgb 12.1 L (14.0-18.0) g/dL Hct 35.7 L (42-52) % MCV 91.3 (80-100) fL MCH 30.9 (25-34) pg MCHC 33.9 (32-36) g/dL RDW Std Deviation 51.7 H (36.4-46.3) fL RDW Coeff of Ana 15.5 H (11.5-14.5) % Plt Count 201 (130-400) K/uL MPV 9.4 (7.4-10.4) fL Peripher Smr Path Cons Pending Sodium 132 L (136-145) mmol/L Potassium 3.7 (3.5-5.1) mmol/L Chloride 98 (98-107) mmol/L Carbon Dioxide 29 (21-32) mmol/L Anion Gap 5.0 (3-11) BUN 16 (7-18) mg/dl Creatinine 0.69 (0.6-1.4) mg/dl Est Cr Clr Drug Dosing 86.1 ml/min Est GFR ( Amer) 99.6 ml/min Est GFR (Non-Af Amer) 86.0 ml/min BUN/Creatinine Ratio 23.0 H (10-20) Glucose 91 (70-99) mg/dl Calcium 8.8 (8.5-10.1) mg/dl Prostate Specific Ag 0.073 (0-4) ng/ml 25-OH Vitamin D Total Pending Free T4 1.13 (0.8-1.6) ng/dl Free T3 Pending PG Care Time/CCT Total # of Minutes Spent Total Time Spent with Patient: Total time spent is greater than 50% in coordination of care (as documented) at patient's floor/unit and/or counseling patient: Coding Level of Care Code 17066 Subseq Hosp Care Lvl 3 Diagnoses Pulmonary embolism I26.99 Dehydration E86.0 Weakness R53.1 Iliac artery aneurysm, left I72.3 Iliac artery aneurysm, right I72.3 HTN (hypertension) I10 Compression fracture of L2 S32.020A Encounter type: initial encounter Decreased oral intake R63.8 Thyroid nodule E04.1 Anemia D64.9 Iron deficiency E61.1 (1) Compression fracture of L2 Encounter type: initial encounter Qualified Code(s): S32.020A - Wedge compression fracture of second lumbar vertebra, initial encounter for closed fracture
[2021-06-30] MEDS: bisacodyL 5 MG TABEC PO SCH (15:45)
[2021-07-01 09:07] LABS: Vitamin D, 25 Hydrox 21.5 ng/ml (30-100)
[2021-07-01 09:08] LABS: T3 Free 1.97 pg/ml (2.3-4.2)
[2021-07-01] MEDS: ACETAMINOPHEN 500 MG TAB PO SCH ×3 (09:28→20:45)
[2021-07-01] MEDS: bisacodyL 5 MG TABEC PO SCH (09:29)
[2021-07-01] MEDS: CYANOCOBALAMIN 500 MCG TABLET (VITAMIN B-12) PO SCH (09:30)
[2021-07-01] MEDS: DOCUSATE SODIUM/SENNA 50/8.6MG TAB PO SCH (09:30)
[2021-07-01] MEDS: DICLOFENAC SOD 1% GEL 100 GM TUBE EXT SCH ×4 (09:30→20:45)
[2021-07-01] MEDS: LIDOCAINE 5% 1 PATCH TD SCH (09:31)
[2021-07-01] MEDS: LOSARTAN POTASSIUM 25 MG TAB PO SCH (09:31)
[2021-07-01] MEDS: POLYETHYLENE (MIRALAX) 17 GM PACK PO SCH (09:32)
[2021-07-01] MEDS: RIVAROXABAN 15 MG TAB PO SCH ×2 (09:32→20:46)
--- NOTE | 2021-07-01 11:45 | Hospitalist Progress Note ---
Date of Service July 01, 2021 Assessment & Plan (1) Pulmonary embolism: Plan: CTA with PE partially occlusive in the RLL artery and with partial and total occlusion of multiple segmental arteries on the right. No evidence of R heart strain Also noted "Diffuse emphysematous changes with pulmonary hypertension". & "Left thyroid nodule. If not previously evaluated, nonemergent thyroid ultrasound can be performed." Continue Xarelto PT/OT consults for weakness on exam with recs for SNF --> CM following. Refs sent (2) Dehydration: Plan: On admission, and given 2 L NSS + 20K, since resolved and would hold off any further IVF at this time Suspect low Na from slight volume overload as well and would hold off on any further IVF No need for diuretic at this time Monitor volume status (3) Weakness: Plan: - Likely multifactorial: Decreased oral intake, decreased ability of exercise due to arthritis and arterial disease. - He in particular has persistent pain across his lumbar spine spine associated with the L2 compression fracture - also has T12 which is new but shows signs of healing - Back brace has been brought in - PT/OT involved --> Has been utilizing brace on/off --> discussed to wear with activity/up in bed for comfort SNF at d/c per therapy recs (4) Iliac artery aneurysm, left: Plan: - STABLE - R and L; also has other aneurysms (ascending thoracic and infrarenal) - Patient was to have surgery by Dr. Davies but had to reschedule as daughter was out of town - currently due for Jun and can with Keke to see if this needs further pushed --> will need re-eval in office prior to procedure given anticoagulation as above Prior provider discussed with Mena on Thursday as need for treat PE - if he does get the aneurysms repaired could consider at that time IVC filter if warranted - no indication for a direct consult from vascular (5) Iliac artery aneurysm, right: Plan: See above (6) HTN (hypertension): Plan: Stable Continue losartan (7) Compression fracture of L2: Plan: - Lidoderm patches; ALFREDO Tylenol - He may benefit from a consult from pain management as outpatient pain reported controlled currently (8) Decreased oral intake: Plan: Patient has had noticeable weight loss per family. He denies any abdominal pain. - given PEs...underlying malignancy? -- CTA does reveal a thyroid nodule - will check TSH --> NORMAL He reports not having any appetite --> improved appetite today and was asking for when lunch would be delivered. ?dietary choices maybe playing role? Continue to monitor (9) Thyroid nodule: Plan: seen on CT and appreciated on exam TSH, free T4 wnl, free T3 mildly low US Thyroid completed 2 thyroid nodules --> left midpole lesion meeting criteria for fine needle aspiration by ACR criteria. The upper pole lesion meets criteria for continued annual follow-up. --> Arranged f/u ENT with Dr. Bearden for FNA in July. Endocrine not available until 2021 (10) Anemia: Plan: Normocytic no signs of hematuria -- urine clear in urinal at bedside moving bowels and per RN no blood noted Iron studies --> LOW iron 32, transferrin 147 and trans % sat 15%. --> IV Venofer x 3 completed 06/29 B12 low normal 357 and also started replacement No active bleeding noted at this time Hx prostate ca. s/p XRT >10yrs ago. No follow up recently. No abn or lytic lesions on imaging upon review however appears there have been concerns about underlying cancerous process given decreased intake (see above) Hgb stable 12.1 (11) Iron deficiency: Plan: as above Venofer x 3 while inpatient, completed Hx C-scopes being normal in past. No alternating BMs but does have issues with constipation -- bowel regimen ordered to prevent constipation issues CTAP -->without evidence for mass on most recent imaging May 2021 Plan: Medically stable for discharge to SNF Admission and Anticipated Discharge Date Admission Date: June 22, 2021 Subjective Patient reports not current shortness of breath at rest. No melena or bright red blood in stool. Review of Systems Review of Systems: All systems reviewed & are unremarkable except as noted in HPI & below Physical Exam Constitutional: well developed and + frail appearing; + not well nourished and no acute distress Respiratory: normal respiratory effort, lungs clear to auscultation Cardiovascular: RRR, no murmur, no edema Results & Data Results & Data ([facility]) Vital Signs (Past 12 Hours) Vital Signs Temp Pulse Resp BP Pulse Ox 07/01/21 08:31 36.5 C 67 18 131/76 93 PG Care Time/CCT Total # of Minutes Spent Total Time Spent with Patient: Total time spent is greater than 50% in coordination of care (as documented) at patient's floor/unit and/or counseling patient: Coding Level of Care Code 13241 Subseq Hosp Care Lvl 1 Diagnoses Pulmonary embolism I26.99 Dehydration E86.0 Weakness R53.1 Iliac artery aneurysm, left I72.3 Iliac artery aneurysm, right I72.3 HTN (hypertension) I10 Compression fracture of L2 S32.020A Encounter type: initial encounter Decreased oral intake R63.8 Thyroid nodule E04.1 Anemia D64.9 Iron deficiency E61.1 (1) Compression fracture of L2 Encounter type: initial encounter Qualified Code(s): S32.020A - Wedge compression fracture of second lumbar vertebra, initial encounter for closed fracture
[2021-07-02] MEDS: LIDOCAINE 5% 1 PATCH TD SCH (10:26)
[2021-07-02] MEDS: POLYETHYLENE (MIRALAX) 17 GM PACK PO SCH (10:27)
[2021-07-02] MEDS: ACETAMINOPHEN 500 MG TAB PO SCH ×2 (10:28→13:35)
[2021-07-02] MEDS: DOCUSATE SODIUM/SENNA 50/8.6MG TAB PO SCH (10:28)
[2021-07-02] MEDS: LOSARTAN POTASSIUM 25 MG TAB PO SCH (10:29)
[2021-07-02] MEDS: DICLOFENAC SOD 1% GEL 100 GM TUBE EXT SCH ×2 (10:30→13:35)
[2021-07-02] MEDS: bisacodyL 5 MG TABEC PO SCH (10:30)
[2021-07-02] MEDS: CYANOCOBALAMIN 500 MCG TABLET (VITAMIN B-12) PO SCH (10:30)
[2021-07-02] MEDS: RIVAROXABAN 15 MG TAB PO SCH (11:30)
--- NOTE | 2021-07-02 12:46 | Discharge Summary ---
Date of Service July 02, 2021 Admission HPI Per Admitting Provider The patient is an 86-year-old male with a past medical history including hypertension, L2 compression fracture, common iliac arteries aneurysm, progressive back and leg pain. The patient presents with symptoms as noted above. He was to have seen Dr. Davies for surgery yesterday, but his daughter pushed it back because she was going to be out of town. The daughter is in the room, feels that his generalized symptoms are related to the iliac artery aneurysm Principal Diagnosis Pulmonary embolism T12 lumbar vertebral fracture Incidental thyroid nodule Iron deficiency anemia Vitamin D deficiency Discharge Exam Constitutional well developed and + frail appearing; + not well nourished and no acute distress Respiratory normal respiratory effort, lungs clear to auscultation Cardiovascular RRR, no murmur, no edema Discharge Data Allergies Allergy/AdvReac Type Severity Reaction Status Date / Time No Known Allergies Allergy Verified 06/20/21 23:23 Consultations 06/21/21 01:25 ED Decision to Admit Stat 06/28/21 21:03 Consult Health Information Management Routine Ordered Studies 06/20/21 21:59 CT angio abdomen pelvis w con Urgent IMPRESSION: 1. Right lower lobe pulmonary emboli. 2. No change in the aneurysmal dilatation of the ascending thoracic aorta, infrarenal abdominal aorta, and bilateral iliac arteries as described above. 3. No definite bowel wall thickening or obstruction. 4. Colonic diverticulosis. No evidence for acute diverticulitis. 5. Small right pleural effusion. 6. Healing T12 and L2 mild superior endplate compression fractures. The T12 compression fracture is new compared the prior studies. 7. These findings were called/faxed to the emergency department following dictation. 06/21/21 03:01 CT head/brain wo con Urgent IMPRESSION: There is no hemorrhage, mass effect, or evidence of acute territorial ischemia by CT criteria. 06/21/21 13:00 US venous doppler LE BI Routine IMPRESSION: No DVT within the right or left lower extremity. 06/22/21 14:43 CT angio chest PE protocol Routine IMPRESSION: 1. Pulmonary embolism which is partially occlusive in the right lower lobe artery and with partial and total occlusion of multiple segmental arteries on the right. No evidence of right heart strain. 2. Diffuse emphysematous changes with pulmonary hypertension. 3. Left thyroid nodule. If not previously evaluated, nonemergent thyroid ultrasound can be performed. 06/26/21 17:00 US thyroid Routine IMPRESSION: 2 thyroid nodules as above. The left mid pole lesion meets criteria for fine nee dle aspiration by ACR criteria. The upper pole lesion meets criteria for continued annual follow-up. Hospital Course (1) Pulmonary embolism: (2) Dehydration: (3) Weakness: (4) Iliac artery aneurysm, left: (5) Iliac artery aneurysm, right: (6) HTN (hypertension): (7) Compression fracture of L2: (8) Decreased oral intake: (9) Thyroid nodule: (10) Anemia: (11) Iron deficiency: You were admitted to [facility] from June 21 - 2020 due to generalized pain in his back and legs and decreased oral intake. You were diagnosed with a new T12 fracture and pulmonary emboli. Pulmonary emboli were incidentally seen on CT angiogram abdomen/pelvis to better assess known aneurysmal dilatation of the ascending thoracic aorta, infrarenal abdominal aorta, and bilateral iliac arteries which remained unchanged from March and will follow up with Dr Davies in clinic regarding this. For the pulmonary emboli this was treated initially with heparin IV and transitioned to Xarelto (8 days given during inpatient stay). He has been prescribed an additional 13 days at this dose then should transition to 20mg PO daily. This is unprovoked and should be treated for at least 6 months. Possibly the PEs have been contributing towards his back pain. Regarding the T12 fracture. This is new since March when he was diagnosed with an L2 fracture. Vitamin D level was low and recommend starting on supplementation for this. Could consider bisphosphonate therapy if pain continues or new fracture present. Echocardiogram performed to evaluate heart strain showed mild-moderate pericardial effusion 06/24. On 06/26 limited repeat echocardiogram showed this to be resolving. Consider repeating in approximately 1-2 months to evaluate recurrence. Additionally an incidental thyroid nodule was seen. An appointment with Dr Bearden has been arranged as above to further evaluate this. Suspect your generalized weakness is multifactorial due to arthritis and chronic back pain with decreased oral intake and PEs as above. he was evaluate by PT/OT and recommended transfer to [facility] at this time for further physical rehabilitation. Losartan reduced to 25mg PO daily due to hypotension during inpatient stay. Total Time Total Time Spent Total Time Spent (In Minutes): 35 Discharge Plan Discharge Items Patient Disposition: Transfer Longterm Fac Reason For Visit: WEAKNESS, FALLS, ALTERED MENTATION Discharge Diagnosis: Pulmonary embolism T12 lumbar vertebral fracture Incidental thyroid nodule Iron deficiency anemia Vitamin D deficiency Activity: Resume your previous activity Non-emergency contact: Primary Care Provider Call non-emergency contact if: you have any medication questions and your symptoms worsen Follow-up/Referrals: Rosaura Bearden MD [Physician] - 08/13/21 3:00 pm (On 08/07/21, you will need to go to any [facility] lab location and have a COVID test done (ideally before 11:30am). The COVID test order has been electronically placed. You do not need an appointment. This test is required for Dr. Bearden to see you.) Diet: Regular Addtl Attending Provider Instructions: You were admitted to [facility] from June 21 - 2020 due to generalized pain in his back and legs and decreased oral intake. You were diagnosed with a new T12 fracture and pulmonary emboli. Pulmonary emboli were incidentally seen on CT angiogram abdomen/pelvis to better assess known aneurysmal dilatation of the ascending thoracic aorta, infrarenal abdominal aorta, and bilateral iliac arteries which remained unchanged from March and will follow up with Dr Davies in clinic regarding this. For the pulmonary emboli this was treated initially with heparin IV and transitioned to Xarelto (8 days given during inpatient stay). He has been prescribed an additional 13 days at this dose then should transition to 20mg PO daily. This is unprovoked and should be treated for at least 6 months. Possibly the PEs have been contributing towards his back pain. Regarding the T12 fracture. This is new since March when he was diagnosed with an L2 fracture. Vitamin D level was low and recommend starting on supplementation for this. Could consider bisphosphonate therapy if pain continues or new fracture present. Echocardiogram performed to evaluate heart strain showed mild-moderate pericardial effusion 06/24. On 06/26 limited repeat echocardiogram showed this to be resolving. Consider repeating in approximately 1-2 months to evaluate recurrence. Additionally an incidental thyroid nodule was seen. An appointment with Dr Bearden has been arranged as above to further evaluate this. Suspect your generalized weakness is multifactorial due to arthritis and chronic back pain with decreased oral intake and PEs as above. he was evaluate by PT/OT and recommended transfer to [facility] at this time for further physical rehabilitation. Losartan reduced to 25mg PO daily due to hypotension during inpatient stay. Pending Studies at Discharge: No Stand-Alone Forms: My [facility] Skilled Items Patient informed of condition?: Yes DNR: No Discharge Level of Care: Skilled Communicable Disease: No Discharge Prognosis: Stable Lines: None Urinary Catheter: No Medications and DC Order Prescriptions: New losartan 25 mg Tablet 25 mg PO QAM Qty: 30 RF: 0 Xarelto 15 mg Tablet 15 mg PO BID 13 Days Qty: 26 RF: 0 lidocaine 5 % Adhesive Patch,Medicated 1 patch transdermal QAM Qty: 15 RF: 0 cyanocobalamin (vitamin B-12) 500 mcg Tablet 1,000 mcg PO QAM Qty: 30 RF: 0 polyethylene glycol 3350 [Miralax] 17 gram Powder In Packet 17 g PO DAILY Qty: 30 RF: 0 sennosides-docusate sodium [Senokot-S] 8.6-50 mg Tablet 1 tab PO QAM Qty: 30 RF: 0 acetaminophen [Tylenol Extra Strength] 500 mg Tablet 1,000 mg PO TID Qty: 90 RF: 0 diclofenac sodium [Voltaren Arthritis Pain] 1 % Gel 4 g EXT QID Qty: 100 RF: 0 cholecalciferol (vitamin D3) [Vitamin D3] 25 mcg (1,000 unit) capsule 1,000 unit PO DAILY Qty: 30 RF: 0 Continued camphor-menthol 0.2-3.5 % Gel 1 applic TOPICAL DAILY PRN (Reason: Pain) RF: 0 aspirin 81 mg Tablet,Delayed Release (Dr/Ec) 81 mg PO QAM Qty: 30 RF: 0 Discontinued aspirin 325 mg Capsule 650 mg PO UD PRN (Reason: Pain) RF: 0 losartan 50 mg Tablet 50 mg PO QAM Qty: 30 RF: 0 Discharge Orders: Discharge Order (Routine); Ordered 07/02/21 Ordered By: Herminio Sorenson Admission Data Admit Date/Time: 06/22/21 17:43 Attending Provider: Herminio Sorenson Admit Provider: Frankie Tavares Primary Care Provider: Michelle Washington Other Providers: Frankie Tavares ; Isidra Church [facility] ; [place] Other Interventions: Discharge Summary Assessment (RN) Last Done: 07/02/21 14:41 Coding Diagnoses Pulmonary embolism I26.99 Dehydration E86.0 Weakness R53.1 Iliac artery aneurysm, left I72.3 Iliac artery aneurysm, right I72.3 HTN (hypertension) I10 Compression fracture of L2 S32.020A Encounter type: initial encounter Decreased oral intake R63.8 Thyroid nodule E04.1 Anemia D64.9 Iron deficiency E61.1
== END 2021-07-02 13:47 | DRG 176 ==
LOC: ED 18:27 → 3N 18:27 → SUATTDRO 06-21 03:08 → 3N 06-21 05:05 → SUATTDRO 06-22 17:43